=== PATIENT | male | born 1945 | race Caucasian/White ===

== ENCOUNTER 2016-07-29 21:21 | Observation (INO) | payer OTHER ==
[2016-07-29 21:37] VITALS: BMI 35.4
[2016-07-29 21:51] LABS: BASOPHILS # (AUTO) 0.1 X10^3/uL (0.0-0.1); BASOPHILS % (AUTO) 0.9 % (0.2-1.0); EOSINOPHILS # (AUTO) 0.2 x10^3/uL (0.0-0.2); EOSINOPHILS % (AUTO) 2.6 % (0.9-2.9); HEMATOCRIT 37.8 % (42.0-54.0); LYMPHOCYTES # (AUTO) 1.8 X10^3/uL (1.3-2.9); LYMPHOCYTES % (AUTO) 23.7 % (21.0-51.0); MEAN CORPUSCULAR HEMOGLOBIN 32.7 pg (27.0-34.0); MEAN CORPUSCULAR HGB CONC 34.4 g/dL (33.0-35.0); MEAN CORPUSCULAR VOLUME 95.1 fL (80.0-100.0); MEAN PLATELET VOLUME 10.3 fL (7.4-11.0); MONOCYTES # (AUTO) 0.6 x10^3/uL (0.3-0.8); MONOCYTES % (AUTO) 7.5 % (0.0-13.0); NEUTROPHILS % (AUTO) 65.3 % (42.0-75.0); PLATELET COUNT 180 X10^3/uL (150.0-450.0); RED BLOOD COUNT 3.97 X10^6/uL (4.7-6.0); RED CELL DISTRIBUTION WIDTH 14.3 % (11.6-16.5); WHITE BLOOD COUNT 7.6 X10^3/uL (3.6-10.0)
--- NOTE | 2016-07-29 21:58 | DR.GENAD ---
HPI - PCP Primary Care PhysicianLaura casillas - Complaint/Symptoms Chief Complaint:: chest pain for 30 minutes pt states" it hurts all the way too my back on the lt side and i feel sob" - Source History Provided: Patient - Mode of Arrival Mode of Arrival: Ambulatory - Timing Onset of Chief Complaint: 07/29/16 PMH - PMH Past Medical History: Yes Past Medical History: Angina, Arthritis, Coronary Artery Disease, Diabetes, Dyslipidemia, GERD, Hypertension, [place] Past Surgical History: Yes Surgical History: Angioplasty/Stents, Joint Replacement, Tonsillectomy - Family History History of Family Medical Conditions: Yes Family Medical History: Diabetes Mellitus, [place], Sudden Cardiac , Hypertension - Social History Does patient currently use any type of tobacco product: No Have you used tobacco products in the last 12 months: No Type of Tobacco Use: None Does any household member use tobacco: No Alcohol Use: None Do you use any recreational Drugs:: No Lives With: Family Lives Where: Home - infectious screening In the last 2 months have you had wt loss of >10#?: NO Have you had fever, night sweats or hemotysis?: No Have you traveled outside the country in the last 6 months?: No Isolation: Standard PE - Vital Signs Vitals: Temperature 98.6 F Pulse Rate [Apical] 54 Pulse Rate 58 Respiratory Rate 16 Blood Pressure [Left Arm] 134/70 Blood Pressure [Right Arm] 121/59 Blood Pressure 167/69 O2 Sat by Pulse Oximetry 98 Course - Consultation Called: 23:29 (Admit r/o [place]) ROR - Labs Reviewed Result Diagrams: 07/29/16 22:20 07/29/16 22:20 Laboratory: WBC 7.6 X10^3/uL (3.6-10.0) 07/29/16 22:20 RBC 3.97 X10^6/uL (4.7-6.0) L 07/29/16 22:20 Hgb 13.0 g/dL (13.5-18.0) L 07/29/16 22:20 Hct 37.8 % (42.0-54.0) L 07/29/16 22:20 MCV 95.1 fL (80.0-100.0) 07/29/16 22:20 MCH 32.7 pg (27.0-34.0) 07/29/16 22:20 MCHC 34.4 g/dL (33.0-35.0) 07/29/16 22:20 RDW 14.3 % (11.6-16.5) 07/29/16 22:20 Plt Count 180 X10^3/uL (150.0-450.0) 07/29/16 22:20 MPV 10.3 fL (7.4-11.0) 07/29/16 22:20 Neut % 65.3 % (42.0-75.0) 07/29/16 22:20 Lymph % 23.7 % (21.0-51.0) 07/29/16 22:20 Mccreary % 7.5 % (0.0-13.0) 07/29/16 22:20 Eos % 2.6 % (0.9-2.9) 07/29/16 22:20 Baso % 0.9 % (0.2-1.0) 07/29/16 22:20 Neut # 5.0 x10^3/uL (2.2-4.8) H 07/29/16 22:20 Lymph # 1.8 X10^3/uL (1.3-2.9) 07/29/16 22:20 Mccreary # 0.6 x10^3/uL (0.3-0.8) 07/29/16 22:20 Eos # 0.2 x10^3/uL (0.0-0.2) 07/29/16 22:20 Baso # 0.1 X10^3/uL (0.0-0.1) 07/29/16 22:20 Absolute Nucleated RBC 0.0 /100WBC 07/29/16 22:20 INR Target Range - 07/29/16 22:20 INR 1.14 (0.8-1.3) 07/29/16 22:20 PTT 29.0 SECONDS (22.9-36.5) 07/29/16 22:20 PTT Comment - 07/29/16 22:20 Sodium 142 mmol/L (136-145) 07/29/16 22:20 Potassium 3.7 mmol/L (3.5-5.1) 07/29/16 22:20 Chloride 107 mmol/L (98-107) 07/29/16 22:20 Carbon Dioxide 21.0 mmol/L (21-32) 07/29/16 22:20 BUN 19 mg/dL (7-18) H 07/29/16 22:20 Creatinine 1.52 mg/dL (0.70-1.30) H 07/29/16 22:20 Est GFR (MDRD) Af Amer 59 (>60) 07/29/16 22:20 Est GFR (MDRD) Non-Af 48 (>60) L 07/29/16 22:20 Glucose 191 mg/dL (65-99) H 07/29/16 22:20 Calcium 8.6 mg/dL (8.5-10.1) 07/29/16 22:20 Corrected Calcium TNP 07/29/16 22:20 Phosphorus 3.4 mg/dL (2.6-4.7) 07/29/16 22:20 Magnesium 1.6 mg/dL (1.7-2.9) L 07/29/16 22:20 Total Bilirubin 0.50 mg/dL (0.2-1.0) 07/29/16 22:20 AST 26 Units/L (15-37) 07/29/16 22:20 ALT 53 Units/L (12-78) 07/29/16 22:20 Alkaline Phosphatase 70 Units/L (46-116) 07/29/16 22:20 Creatine Kinase 137 Units/L (39-308) 07/29/16 22:20 CK-MB (CK-2) 1.2 ng/mL (0-4.0) 07/29/16 22:20 CK/CKMB % Calc 0.9 % (<4) 07/29/16 22:20 Troponin I < 0.02 ng/mL (0-1.5) 07/29/16 22:20 Total Protein 7.5 g/dL (6.4-8.2) 07/29/16 22:20 Albumin 3.6 g/dL (3.4-5.0) 07/29/16 22:20 Globulin 3.9 g/dL (2.5-4.5) 07/29/16 22:20 Albumin/Globulin Ratio 0.9 Ratio (1.1-2.1) L 07/29/16 22:20 - XRAY XRAY Interpreted by: Radiologist (Cardiomegaly and mild COPD w/o new acute abnormality or change from the prior otherwise) - Diagnosis Discharge Problem: Chest pain Qualifiers: Chest pain type: chest pain on breathing Qualified Code(s): R07.1 - Chest pain on breathing - Discharge Plan Condition: Stable - Follow ups/Referrals Follow ups/Referrals: Cachorro Casillas [Primary Care Provider] - 3 days - Instructions
[2016-07-29] MEDS ORDERED: NITROSTAT SL PRN (21:59)
[2016-07-29] MEDS ORDERED: NS 1000 ML 1,000 ML IV SCH (22:00)
[2016-07-29] MEDS ORDERED: ZOFRAN INJ 4 MG VIAL ONE (22:03)
[2016-07-29] MEDS ORDERED: ZOFRAN INJ 4 MG VIAL IVP ONE (22:03)
--- NOTE | 2016-07-29 22:09 | RAD ---
Graph chest AP portable Indication: Chest pain and dyspnea. Comparison: February 20, 2015. Findings: There is no pneumothorax or effusion. There is no consolidation. Heart size is prominent. Right shoulder hardware intact. Impression: Cardiomegaly and mild COPD without new acute abnormality or change from the prior otherw ise. Reported By:
[2016-07-29] MEDS: ASPIRIN PO SCH (22:11)
[2016-07-29 22:46] LABS: MAGNESIUM 1.6 mg/dL (1.7-2.9); PHOSPHORUS 3.4 mg/dL (2.6-4.7)
[2016-07-29 22:53] LABS: BLOOD UREA NITROGEN 19 mg/dL (7-18); CALCIUM 8.6 mg/dL (8.5-10.1); CHLORIDE 107 mmol/L (98-107); COR NA(FOR HYPERGLY) 144 mmol/L (136-145); CREATININE 1.52 mg/dL (0.70-1.30); GLUCOSE 191 mg/dL (65-99); SODIUM 142 mmol/L (136-145); TROPONIN I < 0.02 ng/mL (0-1.5); eGFR BLACK RACES 59 (>60); eGFR NON BLACK RACES 48 (>60)
[2016-07-29 23:09] LABS: ALANINE AMINOTRANSFERASE 53 Units/L (12-78); ALBUMIN 3.6 g/dL (3.4-5.0); ALKALINE PHOSPHATASE 70 Units/L (46-116); ASPARTATE AMINO TRANSFERASE 26 Units/L (15-37); CKMB % 0.9 % (<4); CREATINE KINASE 137 Units/L (39-308); CREATINE KINASE MB 1.2 ng/mL (0-4.0); TOTAL PROTEIN 7.5 g/dL (6.4-8.2)
[2016-07-29] MEDS ORDERED: ZOFRAN INJ 4 MG VIAL IVP PRN (23:38)
[2016-07-29] MEDS ORDERED: MORPHINE SULFATE INJ 4 MG IVP PRN (23:38)
[2016-07-30] MEDS ORDERED: NS + KCL 20 MEQ/L 1,000 ML IV ONE (05:47)
[2016-07-30] MEDS: NS 1000 ML 1,000 ML with POTASSIUM CHLORIDE INJ 20 MEQ VIAL 20 MEQ IV SCH ×8 (05:53→22:37)
[2016-07-30 06:07] LABS: CKMB % 1.1 % (<4); CREATINE KINASE 107 Units/L (39-308); CREATINE KINASE MB 1.2 ng/mL (0-4.0); TROPONIN I < 0.02 ng/mL (0-1.5)
[2016-07-30 08:03] LABS: BASOPHILS % (AUTO) 0.7 % (0.2-1.0); EOSINOPHILS # (AUTO) 0.3 x10^3/uL (0.0-0.2); EOSINOPHILS % (AUTO) 5.1 % (0.9-2.9); HEMATOCRIT 35.2 % (42.0-54.0); HEMOGLOBIN 11.8 g/dL (13.5-18.0); LYMPHOCYTES # (AUTO) 1.6 X10^3/uL (1.3-2.9); LYMPHOCYTES % (AUTO) 30.1 % (21.0-51.0); MEAN CORPUSCULAR HEMOGLOBIN 32.4 pg (27.0-34.0); MEAN CORPUSCULAR HGB CONC 33.6 g/dL (33.0-35.0); MEAN CORPUSCULAR VOLUME 96.5 fL (80.0-100.0); MEAN PLATELET VOLUME 10.3 fL (7.4-11.0); MONOCYTES # (AUTO) 0.5 x10^3/uL (0.3-0.8); MONOCYTES % (AUTO) 8.8 % (0.0-13.0); NEUTROPHILS % (AUTO) 55.3 % (42.0-75.0); PLATELET COUNT 130 X10^3/uL (150.0-450.0); RED BLOOD COUNT 3.64 X10^6/uL (4.7-6.0); RED CELL DISTRIBUTION WIDTH 14.3 % (11.6-16.5); WHITE BLOOD COUNT 5.4 X10^3/uL (3.6-10.0)
[2016-07-30 08:10] LABS: ALANINE AMINOTRANSFERASE 47 Units/L (12-78); ALBUMIN 3.2 g/dL (3.4-5.0); ALKALINE PHOSPHATASE 63 Units/L (46-116); ASPARTATE AMINO TRANSFERASE 29 Units/L (15-37); BLOOD UREA NITROGEN 20 mg/dL (7-18); CALCIUM 8.3 mg/dL (8.5-10.1); CARBON DIOXIDE 19.7 mmol/L (21-32); CHLORIDE 110 mmol/L (98-107); COR CA(FOR HYPOALB) 8.9 mg/dL (8.5-10.1); COR NA(FOR HYPERGLY) 144 mmol/L (136-145); CREATININE 1.25 mg/dL (0.70-1.30); GLUCOSE 119 mg/dL (65-99); SODIUM 144 mmol/L (136-145); TOTAL PROTEIN 6.7 g/dL (6.4-8.2); eGFR BLACK RACES > 60 (>60); eGFR NON BLACK RACES > 60 (>60)
[2016-07-30] MEDS ORDERED: [UNRECOGNIZED DRUG - OTHER] PO SCH (09:00)
[2016-07-30] MEDS ORDERED: [UNRECOGNIZED DRUG - OTHER] PO SCH (09:00)
[2016-07-30] MEDS ORDERED: GLUCOPHAGE ONE ×2 (09:20→20:16)
[2016-07-30] MEDS: PRILOSEC PO SCH (09:25)
[2016-07-30] MEDS: NEURONTIN CAP 300 MG PO SCH (09:26)
[2016-07-30] MEDS: NORVASC TAB 10 MG PO SCH (09:26)
[2016-07-30] MEDS: ZESTRIL TAB 10 MG PO SCH ×2 (09:26→20:20)
[2016-07-30] MEDS: GLUCOPHAGE PO SCH ×2 (09:26→20:20)
[2016-07-30] MEDS: ASPIRIN PO SCH (09:27)
[2016-07-30] MEDS: MAGNESIUM SULFATE 1 GM/100 mL PREMIX 1 GM/100 ML BAG IV SCH ×2 (09:58→09:59)
[2016-07-30 10:16] LABS: CKMB % 1.3 % (<4); CREATINE KINASE 100 Units/L (39-308); CREATINE KINASE MB 1.3 ng/mL (0-4.0); TROPONIN I < 0.02 ng/mL (0-1.5)
[2016-07-30] MEDS: PLAVIX PO SCH (13:45)
[2016-07-30] MEDS: [UNRECOGNIZED DRUG - OTHER] PO SCH (13:45)
--- NOTE | 2016-07-30 15:00 | DR.H&P ---
H&P - History & Physical for Day of: H&P Date: 07/29/16 - Chief Complaint Chief Complaint: CHEST PAIN - Allergies Allergies/Adverse Reactions: Allergies Allergy/AdvReac Type Severity Reaction Status Date / Time No Known Drug Allergy Allergy Verified 06/08/13 20:48 - History of Present Illness History of Present Illness: THIS IS A 70 YEAR OLD MALE, WHO IS A PATIENT OF OURS. HE PRESENTS TO THE EMERGENCY ROOM WITH COMPLAINTS OF CHEST PAIN. PATIENT REPORTS LEFT-SIDED CHEST PAIN, BACK PAIN, AND SHORTNESS OF BREATH. HE REPORTS PLAVIX HAS BEEN HELD FOR A WEEK FOR SOME DENTAL WORK THAT WAS TO BE DONE TOMORROW. TWO DAYS AGO, PATIENT REPORTED THAT HE WAS DIZZY AND FELT WEAK. HE STATED TODAY, HE FELT GOOD AND PLAYED A ROUND OF GOLF WITH NO COMPLAINTS. LATER THIS EVENING, PATIENT BEGAN WITH CHEST PAIN AND SHORTNESS OF BREATH. HE REPORTS CHEST PAIN IS VERY SIMILAR TO PAST [place]. 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 LABS, EKG OBTAINED. CBC WNL EXCEPT: H/H 13.0/37.8. CMP WNL EXCEPT: CHL 110, CARBON DIOXIDE 19.7, BUN 20, GLUCOSE 119, CALCIUM 8.3, ALBUMIN 3.2. CHEST XRAY REPORTS CARDIOMEGALY AND MILD COPD WITHOUT NEW ACUTE ABNORMALITY. EKG: SINUS RHYTHM, RATE 58. CARDIAC ENZYMES WNL. WE WILL ADMIT PATIENT FOR FURTHER TREATMENT AND EVALUATION. - Past Medical History Past Medical History: Angina, Arthritis, Coronary Artery Disease, Diabetes, Dyslipidemia, GERD, Hypertension, [place] Additional Medical History: Previous Blood Transfusion - Past Surgical History Surgical History: Angioplasty/Stents, Ortho Surgery Additional Surgical History: Two Heart Catheterization's, Right Total Knee, Right Shoulder Replacement, Fatty tissue removed from left side of neck - Family History Family Medical History: Cancer, [place] - Social History Does patient currently use any type of tobacco product: No Have you used tobacco products in the last 12 months: No Type of Tobacco Use: None Does any household member use tobacco: No Alcohol Use: None Drug Use: None - Medications Home Medications: Gabapentin [Gabapentin] 1 cap PO HS 07/29/16 [History Confirmed 07/30/16] Metformin HCl [Metformin HCl] 1 tab PO BID 07/29/16 [History Confirmed 07/30/16] Omeprazole [Omeprazole] 1 tab PO DAILY 07/29/16 [History Confirmed 07/30/16] Clopidogrel Bisulfate [Clopidogrel] 1 tab PO DAILY 07/30/16 [History Confirmed 07/30/16] Tamsulosin HCl [Tamsulosin HCl] 1 cap PO HS 07/30/16 [History Confirmed 07/30/16 ] - Review of Systems Constitutional: Weakness, Malaise Eyes: No Symptoms Reported. denies: Pain, Vision Change, Eyelid Inflammation ENT: No Symptoms Reported. denies: Ear Pain, Ear Discharge, Nose Pain, Nose Discharge, Nose Congestion, Mouth Pain, Mouth Swelling, Throat Pain, Throat Swelling Respiratory: Shortness of Breath, SOB with Excertion. denies: Cough, Pleuritic Pain, Wheezing Cardiovascular: Chest Pain, Light Headedness. denies: Palpitations, Orthopnea, Paroxysmal Noc. Dyspnea, Edema Gastrointestinal: No Symptoms Reported. denies: Nausea, Abdominal Pain, Diarrhea, Constipation, Melena, Hematochezia Genitourinary: No Symptoms Reported. denies: Dysuria, Frequency, Incontinence, Hematuria, Retention Musculoskeletal: Back Pain Skin: No Symptoms Reported. denies: Rash, Lesions, Jaundice, Bruising, Wound, Ecchymosis Neurological: No Symptoms Reported. denies: Weakness, Numbness, Incoordination , Change in Speech, Confusion, Seizures - Physical Exam Vital Signs: Temperature 97.9 F Pulse Rate [Apical] 94 Respiratory Rate 20 Blood Pressure [Left Arm] 131/68 O2 Sat by Pulse Oximetry 98 Oriented: Normal, Time, Person, Place Eyes: Normal. negative: Blurred Vision, Diplopia, Discharge, Redness, Photophobia Ear: Normal. negative: Swelling, Ecchymosis, Hemotypanum, Abrasion Nose: Normal. negative: Injected, Discharge, Blood Throat: Normal. negative: Tonsillar Hypertrophy, Red, Exudate Respiratory: Clear Throughout Cardiovascular: Normal. negative: Murmur, Edema : Normal. negative: Dysuria, Hematuria, Frequency, Discharge, Testicular Pain Auscultation: Bowel Sounds: Normal. negative: Bruit Palpation: Normal. negative: Spleen Enlarged, Mass Pulsatile Tenderness: Normal. negative: Rebound, Guarding, Rigidity Skin: Normal. negative: Diaphoresis, Wound, Bruising, Ecchymosis Musculoskeletal: Normal Psychiatric: Normal Mood Description: Calm, Appropriate Affect: Normal Speech Pattern: Clear, Appropriate - Assessment/Plan (1) Chest pain, rule out acute myocardial infarction Status: Acute Plan: ADMIT PATIENT, OBTAIN SERIAL CARDIAC ENZYMES AND EKG'S, MORPHINE NEEDED , SUPPLEMENTAL OXYGEN, MONITOR ON TELEMETRY. (2) Shortness of breath Status: Acute Plan: ABOVE. 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
--- NOTE | 2016-07-30 15:18 | PCM.PROG ---
Progress Note - Progress Note for Day of Date: 07/30/16 - Subjective Subjective: PATIENT CONTINUES TO REPORT LEFT-SIDED CHEST PAIN ALONG WITH INTERMITTENT SHORTNESS OF BREATH. HEART RATE IS REGULAR. AT BEDSIDE. WE HAVE DISCUSSED HOLDING PLAVIX FOR DENTAL PROCEDURE AND ARE PLANNING TO RESTART MEDICATION TODAY. PATIENT VOICES UNDERSTANDING. PATIENT HAS A HISTORY OF NC WITH CARDIAC STENT PLACEMENT. WE ARE ALSO PLANNING FOR PATIENT TO FOLLOW UP WITH [facility] UPON DISCHARGE. CARDIAC ENZYMES AND EKG'S WNL. PATIENT REPORTS EYE PRESSURE ALONG WITH DIZZINESS THIS MORNING. CBC WNL EXCEPT: H/H 11.8/35.2, PLT COUNT 130. CMP WNL EXCEPT: CHL 110, CARBON DIOXIDE 19.7, BUN 20 , GLUCOSE 119, CALCIUM 8.3, ALBUMIN 3.2. MAGNESIUM 1.6. WE WILL OBTAIN AN ECHO AND CAROTID DOPPLER TODAY. WE WILL START PLAVIX, PEPCID, PROTONIX, MAG- RDIERS, AND OBTAIN SERIAL EKG'S AND CARDIAC ENZYMES. WE WILL CONTINUE TO MONITOR ON TELEMETRY AND FOLLOW UP IN AM WITH LABS. - Past Medical Family Social History Past Med/Fam/Surg Hx: No changes since H&P Allergies: Allergies No Known Drug Allergy Allergy (Verified 06/08/13 20:48) - Review of Systems ROS: No change since H&P - Vital Signs and I&O's Vital Signs: Temperature 97.9 F Pulse Rate [Apical] 94 Respiratory Rate 20 Blood Pressure [Left Arm] 131/68 O2 Sat by Pulse Oximetry 98 Intake and Output: Intake & Output 07/28/16 07/29/16 07/30/16 07/31/16 11:59 11:59 11:59 11:59 Intake Total 925 Output Total 0 Balance 925 - Physical Exam Oriented: Normal, Time, Person, Place Eyes: Normal. negative: Blurred Vision, Diplopia, Discharge, Redness, Photophobia Ear: Normal. negative: Swelling, Ecchymosis, Hemotypanum, Abrasion Nose: Normal. negative: Injected, Discharge, Blood Throat: Normal. negative: Tonsillar Hypertrophy, Red, Exudate Respiratory: Normal Cardiovascular: Normal. negative: Murmur, Edema : Normal. negative: Dysuria, Hematuria, Frequency, Discharge, Testicular Pain Auscultation: Bowel Sounds: Normal. negative: Bruit Palpation: Normal. negative: Spleen Enlarged, Liver Enlarged, Mass Pulsatile Tenderness: Normal. negative: Rebound, Guarding, Rigidity Skin: Normal. negative: Diaphoresis, Wound, Bruising, Ecchymosis Musculoskeletal: Normal Psychiatric: Normal Mood Description: Calm, Appropriate Affect: Normal Speech Pattern: Clear, Appropriate - Laboratory and Diagnostics Result Diagrams: 07/30/16 05:05 07/30/16 05:05 Labs: Laboratory WBC 5.4 X10^3/uL (3.6-10.0) 07/30/16 05:05 RBC 3.64 X10^6/uL (4.7-6.0) L 07/30/16 05:05 Hgb 11.8 g/dL (13.5-18.0) L 07/30/16 05:05 Hct 35.2 % (42.0-54.0) L 07/30/16 05:05 MCV 96.5 fL (80.0-100.0) 07/30/16 05:05 MCH 32.4 pg (27.0-34.0) 07/30/16 05:05 MCHC 33.6 g/dL (33.0-35.0) 07/30/16 05:05 RDW 14.3 % (11.6-16.5) 07/30/16 05:05 Plt Count 130 X10^3/uL (150.0-450.0) L 07/30/16 05:05 MPV 10.3 fL (7.4-11.0) 07/30/16 05:05 Neut % 55.3 % (42.0-75.0) 07/30/16 05:05 Lymph % 30.1 % (21.0-51.0) 07/30/16 05:05 Bates % 8.8 % (0.0-13.0) 07/30/16 05:05 Eos % 5.1 % (0.9-2.9) H 07/30/16 05:05 Baso % 0.7 % (0.2-1.0) 07/30/16 05:05 Neut # 3.0 x10^3/uL (2.2-4.8) 07/30/16 05:05 Lymph # 1.6 X10^3/uL (1.3-2.9) 07/30/16 05:05 Bates # 0.5 x10^3/uL (0.3-0.8) 07/30/16 05:05 Eos # 0.3 x10^3/uL (0.0-0.2) H 07/30/16 05:05 Baso # 0.0 X10^3/uL (0.0-0.1) 07/30/16 05:05 Absolute Nucleated RBC 0.1 /100WBC 07/30/16 05:05 INR Target Range - 07/29/16 22:20 INR 1.14 (0.8-1.3) 07/29/16 22:20 PTT 29.0 SECONDS (22.9-36.5) 07/29/16 22:20 PTT Comment - 07/29/16 22:20 Sodium 144 mmol/L (136-145) 07/30/16 05:05 Corrected Sodium 144 mmol/L (136-145) 07/30/16 05:05 Potassium 4.1 mmol/L (3.5-5.1) 07/30/16 05:05 Chloride 110 mmol/L (98-107) H 07/30/16 05:05 Carbon Dioxide 19.7 mmol/L (21-32) L 07/30/16 05:05 BUN 20 mg/dL (7-18) H 07/30/16 05:05 Creatinine 1.25 mg/dL (0.70-1.30) 07/30/16 05:05 Est GFR (MDRD) Af Amer > 60 (>60) 07/30/16 05:05 Est GFR (MDRD) Non-Af > 60 (>60) 07/30/16 05:05 Glucose 119 mg/dL (65-99) H 07/30/16 05:05 Calcium 8.3 mg/dL (8.5-10.1) L 07/30/16 05:05 Corrected Calcium 8.9 mg/dL (8.5-10.1) 07/30/16 05:05 Phosphorus 3.4 mg/dL (2.6-4.7) 07/29/16 22:20 Magnesium 1.6 mg/dL (1.7-2.9) L 07/29/16 22:20 Total Bilirubin 0.40 mg/dL (0.2-1.0) 07/30/16 05:05 AST 29 Units/L (15-37) 07/30/16 05:05 ALT 47 Units/L (12-78) 07/30/16 05:05 Alkaline Phosphatase 63 Units/L (46-116) 07/30/16 05:05 Creatine Kinase 100 Units/L (39-308) 07/30/16 09:38 CK-MB (CK-2) 1.3 ng/mL (0-4.0) 07/30/16 09:38 CK/CKMB % Calc 1.3 % (<4) 07/30/16 09:38 Troponin I < 0.02 ng/mL (0-1.5) 07/30/16 09:38 Total Protein 6.7 g/dL (6.4-8.2) 07/30/16 05:05 Albumin 3.2 g/dL (3.4-5.0) L 07/30/16 05:05 Globulin 3.5 g/dL (2.5-4.5) 07/30/16 05:05 Albumin/Globulin Ratio 0.9 Ratio (1.1-2.1) L 07/30/16 05:05 - Plan (1) Chest pain, rule out acute myocardial infarction Status: Acute Plan: OBTAIN ECHO AND CAROTID DOPPLER, OBTAIN SERIAL CARDIAC ENZYMES AND EKG'S, START PLAVIX, CONTINUE ASPIRIN, LIPITOR, MORPHINE NEEDED, SUPPLEMENTAL OXYGEN , MONITOR ON TELEMETRY, FLP IN AM. (2) Shortness of breath Status: Acute Plan: ABOVE. 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
[2016-07-30 17:14] LABS: CREATINE KINASE 99 Units/L (39-308); CREATINE KINASE MB < 1.0 ng/mL (0-4.0); TROPONIN I < 0.02 ng/mL (0-1.5)
[2016-07-30] MEDS ORDERED: SNACK - Diabetic Appropriate PO SCH (20:00)
[2016-07-30] MEDS ORDERED: ANTIVERT TAB 25 MG PO SCH (21:00)
[2016-07-30] MEDS ORDERED: LIPITOR TAB 40 MG PO SCH (21:00)
[2016-07-30] MEDS ORDERED: PATIENT'S HOME MEDICATION RESPIRATORY (Atorvastatin Calcium [Lipitor] 80 MG) PO SCH (21:00)
[2016-07-30 23:43] LABS: CKMB % 1.2 % (<4); CREATINE KINASE 83 Units/L (39-308); CREATINE KINASE MB < 1.0 ng/mL (0-4.0); TROPONIN I 0.03 ng/mL (0-1.5)
[2016-07-31] MEDS: NS 1000 ML 1,000 ML with POTASSIUM CHLORIDE INJ 20 MEQ VIAL 20 MEQ IV SCH ×2 (02:40)
[2016-07-31 06:03] LABS: ALANINE AMINOTRANSFERASE 46 Units/L (12-78); ALKALINE PHOSPHATASE 61 Units/L (46-116); ASPARTATE AMINO TRANSFERASE 21 Units/L (15-37); BLOOD UREA NITROGEN 15 mg/dL (7-18); CALCIUM 8.2 mg/dL (8.5-10.1); CARBON DIOXIDE 22.2 mmol/L (21-32); CHLORIDE 111 mmol/L (98-107); CHOL/HDL RATIO 3.7 (0.0-5.0); CHOLESTEROL 86 mg/dL (0-200); COR NA(FOR HYPERGLY) 145 mmol/L (136-145); CREATININE 1.11 mg/dL (0.70-1.30); GLUCOSE 139 mg/dL (65-99); HDL CHOLESTEROL 23 mg/dL (40-60); MAGNESIUM 1.8 mg/dL (1.7-2.9); SODIUM 144 mmol/L (136-145); TOTAL PROTEIN 6.6 g/dL (6.4-8.2); TRIGLYCERIDES 80 mg/dL (0-150); eGFR BLACK RACES > 60 (>60); eGFR NON BLACK RACES > 60 (>60)
[2016-07-31 06:18] LABS: HEMOGLOBIN A1C 7.5 % (4.5-6.2)
--- NOTE | 2016-07-31 06:58 | VAS ---
HISTORY: Chest pain Study: Carotid sonogram Comparison: None Technique: Multiple del rosario scale and color flow Doppler images of the right and left carotid arterial system were obtained. The vertebral arterial system was evaluated as well. Findings: Plaque is present at both bifurcations. Normal color flow Doppler is seen throughout the right and l eft carotid arterial system. No hemodynamically significant stenosis is seen based on velocity crit eria. The right and left vertebral arteries demonstrate antegrade flow. IMPRESSION: 1. No hemodynamically significant stenosis. Reported By:
[2016-07-31 07:11] LABS: BASOPHILS % (AUTO) 0.6 % (0.2-1.0); EOSINOPHILS # (AUTO) 0.3 x10^3/uL (0.0-0.2); EOSINOPHILS % (AUTO) 5.2 % (0.9-2.9); HEMATOCRIT 36.9 % (42.0-54.0); HEMOGLOBIN 12.3 g/dL (13.5-18.0); LYMPHOCYTES # (AUTO) 1.1 X10^3/uL (1.3-2.9); LYMPHOCYTES % (AUTO) 19.2 % (21.0-51.0); MEAN CORPUSCULAR HEMOGLOBIN 31.9 pg (27.0-34.0); MEAN CORPUSCULAR HGB CONC 33.3 g/dL (33.0-35.0); MEAN PLATELET VOLUME 10.8 fL (7.4-11.0); MONOCYTES # (AUTO) 0.4 x10^3/uL (0.3-0.8); MONOCYTES % (AUTO) 7.7 % (0.0-13.0); NEUTROPHILS # (AUTO) 3.9 x10^3/uL (2.2-4.8); NEUTROPHILS % (AUTO) 67.3 % (42.0-75.0); PLATELET COUNT 137 X10^3/uL (150.0-450.0); RED BLOOD COUNT 3.84 X10^6/uL (4.7-6.0); RED CELL DISTRIBUTION WIDTH 14.2 % (11.6-16.5); WHITE BLOOD COUNT 5.8 X10^3/uL (3.6-10.0)
[2016-07-31 08:21] VITALS: BP 144/76
[2016-07-31] MEDS ORDERED: GLUCOPHAGE ONE (08:35)
[2016-07-31] MEDS: PRILOSEC PO SCH (08:35)
[2016-07-31 08:37] LABS: CKMB % 1.3 % (<4); CREATINE KINASE 79 Units/L (39-308); CREATINE KINASE MB < 1.0 ng/mL (0-4.0); TROPONIN I < 0.02 ng/mL (0-1.5)
[2016-07-31] MEDS: ASPIRIN PO SCH (08:50)
[2016-07-31] MEDS: NORVASC TAB 10 MG PO SCH (08:50)
[2016-07-31] MEDS: PLAVIX PO SCH (08:53)
[2016-07-31] MEDS: ZESTRIL TAB 10 MG PO SCH (08:53)
[2016-07-31] MEDS: NEURONTIN CAP 300 MG PO SCH (08:53)
[2016-07-31] MEDS: GLUCOPHAGE PO SCH (08:54)
[2016-07-31] MEDS: [UNRECOGNIZED DRUG - OTHER] PO SCH (08:54)
== END 2016-07-31 11:19 | disposition home or self-care (01) | DRG 313 ==
LOC: ER 21:21 → OBS 23:33
PROVIDERS: ADMIT Internal Medicine; ATTEND Internal Medicine
DX: R07.89 Other chest pain (principal); I25.10 Atherosclerotic heart disease of native coronary artery without angina pectoris; E78.2 Mixed hyperlipidemia; K21.9 Gastro-esophageal reflux disease without esophagitis; M13.89 Other specified arthritis, multiple sites; I10 Essential (primary) hypertension; R07.1 Chest pain on breathing; M54.5 Low back pain; R06.02 Shortness of breath; I51.7 Cardiomegaly; J44.9 Chronic obstructive pulmonary disease, unspecified; E11.65 Type 2 diabetes mellitus with hyperglycemia; I25.2 Old myocardial infarction; D64.89 Other specified anemias; Z79.01 Long term (current) use of anticoagulants
CPT/HCPCS: 36415; 71010; 80053; 80061; 82550; 82553; 83036; 83735; 84100; 84484; 85025; 85610; 85730; 86677; 93005; 93041; 93306; 93880; 94760; 96365; 96367; 96374; 99284; A4222; G0378; J2405; J3480

== ENCOUNTER 2019-10-22 14:54 | Inpatient (IN) ==
--- NOTE | 2019-10-22 15:33 | DR.EXTPAIN ---
HPI Time seen Time Seen by Provider: 10/22/19 15:31 PCP Primary Care Physician: vinny HPI Comment HPI Comment: PATIENT IS 74YR OLD MALE IN ER WITH HIS BOTH COVID 19 POSITIVE NOW RUNNING FEVER, AND HAVING INCREASING SOB AND GENERALIZED WEAKNESS. HE IS DIZZY. COUGHING, NON PRODUCTIVE. HISTORY CAD, DM AND HYPERTENSION. HIS IS COVID 19 POSITIVE AND SHE IS SICK IN ER WITH ALSO. HAVING GENERALIZED MUSCLE ACHES, 8/10. MOVEMENT WORSENEN PAIN, AND LYING STILL HELP PAIN. Complaint/Symptoms Chief Complaint Doctor Comments: PATIENT PRESENTS TO ER WITH GENERALIZED WEAKNESS, DIZZINESS, INCREASING SOB AND FEVER FOR A WEEK. HE IS COVID 19 POSITIVE. Chief Complaint:: pt stated he has been weak,dizzy, and short of breath for about a weak. pt has been covid positive for a weak. COVID-19 Coronavirus risk:travel/contact w/high risk person: Yes Has patient experienced Coronavirus symptoms: Yes Coronavirus symptoms experienced: Fever and Shortness of Breath Nurses notes reviewed Nurses Notes Review: Yes Source History Provided: Patient Mode of arrival Mode of Arrival: Ambulatory Timing Onset of Chief Complaint: 10/16/19 Context History of: Arthritis Associated signs and symptoms Associated Signs and Symptoms: Weakness, Pain, Fever, Cough and Shortness of Breath PMH PMH Past Medical History: Yes Past Medical History: Angina, Arthritis, Coronary Artery Disease, Diabetes, Dys lipidemia, GERD, Hypertension and MS Past Surgical History: Yes Surgical History: Angioplasty/Stents and Ortho Surgery Family History History of Family Medical Conditions: Yes Family Medical History: Cancer and MS Social History Does patient currently use any type of tobacco product: No Have you used tobacco products in the last 12 months: No Type of Tobacco Use: None Does any household member use tobacco: No Alcohol Use: None Do you use any recreational Drugs:: No Lives With: Family Lives Where: Home Travel Risk Coronavirus risk:travel/contact w/high risk person: Yes Has patient experienced Coronavirus symptoms: Yes Coronavirus symptoms experienced: Fever and Shortness of Breath Infectious screening In the last 2 months have you had wt loss of >10#?: NO Have you had fever, night sweats or hemotysis?: No Have you traveled outside the country in the last 6 months?: No Isolation: Droplet ROS Review of Systems Constitutional: See HPI, Fever, Weakness and Fatigue Eyes: No Symptoms Reported and See HPI; negative Blurred Vision and Diplopia ENTM: See HPI and Nose Congestion; negative Ear Pain, Nose Discharge and Throat Pain Respiratoy: See HPI, Non-Productive Cough and Short of Breath; negative Wheezing Cardiovascular: No Symptoms Reported and See HPI; negative Chest Pain and Edema Gastrointestinal/Abdominal: No Symptoms Reported and See HPI; negative Abdominal Pain, Diarrhea, Nausea and Vomiting Genitourinary: No Symptoms Reported and See HPI; negative Dysuria, Frequency and Hematuria Neurological: See HPI, Weakness and Dizziness; negative Headache Musculoskeletal: See HPI and Muscle Pain Integumentary: No Symptoms Reported and See HPI; negative Change in Color, Rash and Juandice Hematologic/Lymphatic: No Symptoms Reported and See HPI; negative Easy Bruising and Swollen Glands Endocrine: No Symptoms Reported and See HPI; negative Increased Thirst and Increased Urine Psychiatric: No Symptoms Reported and See HPI All Other Systems: Reviewed and Negative PE Vital Signs Vitals: Temperature 99.0 F Pulse Rate 78 Respiratory Rate 18 Blood Pressure [Left Arm] 144/76 Blood Pressure [Right Arm] 121/59 Blood Pressure 127/68 O2 Sat by Pulse Oximetry 97 General Limitations: No Limitations General Appearance: Alert and In Distress (ON EXERTION, INCREASE SOB.) Head Head Exam: Normal Inspection, Atraumatic and Normocephalic Eyes Eye exam: Normal Appearance, PERRL and EOMI; negative Scleral Icterus and Conjunctival Injection ENT ENT Exam: Normal Exam Neck Neck Exam: Normal Inspection and Trachea Midline; negative Tenderness and Lymphadenopathy Chest Chest Inspection: Normal Inspection and Symmetric Chest Wall Rise; negative Tenderness Respiratory Respiratory Exam: Normal Lung Sounds Bilat and Respiratory Distress; negative Accessory Muscle Use and Chest Wall Tenderness Respiratory Exam: Bilateral: Rhonchi and Lower: Rhonchi Cardiovascular Cardiovascular Exam: Regular Rate, Normal Rhythm and Normal Heart Sounds; negative Systolic Murmur and Diastolic Murmur Abdominal Exam Abdominal Exam: Normal Inspection, Normal Bowel Sounds and Soft; negative Tenderness Extremities Extremities Exam: Normal Inspection and Normal Capillary Refill; negative Tenderness, Edema and Calf Tenderness Back Back Exam: Normal Inspection; negative (R) CVA Tenderness and (L) CVA Tenderness Neurological Neurological Exam: Alert, Oriented X3 and CN II-XII Intact; negative Motor Sen satinder Deficit Psychiatric Psychiatric Exam: Normal Affect and Normal Mood Skin Skin Exam: Warm, Dry, Intact and Normal Color MDM Differential Diagnosis Differential Diagnosis: Other (GENERALIZED WEAKNESS, FEVER, PNEUMONIA, UTI, COVID 19 POSITIVE, RESPIRATORY DISTRESS.) COURSE Treatment Treatment: SEE ORDERS. IV FLUIDS AND IV TORADOL. PAIN IMPROVING. ROCEPHIN 1GM IVPB IN ER. ROR Labs Reviewed Laboratory Results Reviewed?: Yes Result Diagrams: 10/23/19 04:36 10/23/19 04:36 Laboratory: 10/22/19 16:40 Urine,Clean Catch Urine Culture - Preliminary WBC 3.6 X10^3/uL (3.6-10.0) 10/22/19 16:07 RBC 3.97 X10^6/uL (4.7-6.0) L 10/22/19 16:07 Hgb 13.6 g/dL (13.5-18.0) 10/22/19 16:07 Hct 39.2 % (42.0-54.0) L 10/22/19 16:07 MCV 98.7 fL (80.0-100.0) 10/22/19 16:07 MCH 34.3 pg (27.0-34.0) H 10/22/19 16:07 MCHC 34.7 g/dL (33.0-35.0) 10/22/19 16:07 RDW 13.9 % (11.6-16.5) 10/22/19 16:07 Plt Count 153 X10^3/uL (150.0-450.0) 10/22/19 16:07 MPV 9.0 fL (7.4-11.0) 10/22/19 16:07 Neut % (Auto) 71.8 % (42.0-75.0) 10/22/19 16:07 Lymph % (Auto) 15.3 % (21.0-51.0) L 10/22/19 16:07 Sterling % (Auto) 11.9 % (0.0-13.0) 10/22/19 16:07 Eos % (Auto) 0.2 % (0.9-2.9) L 10/22/19 16:07 Baso % (Auto) 0.8 % (0.2-1.0) 10/22/19 16:07 Neut # (Auto) 2.6 x10^3/uL (2.2-4.8) 10/22/19 16:07 Lymph # (Auto) 0.5 X10^3/uL (1.3-2.9) L 10/22/19 16:07 [place] # (Auto) 0.4 x10^3/uL (0.3-0.8) 10/22/19 16:07 Eos # (Auto) 0.0 x10^3/uL (0.0-0.2) 10/22/19 16:07 Baso # (Auto) 0.0 X10^3/uL (0.0-0.1) 10/22/19 16:07 Absolute Nucleated RBC 0.1 /100WBC 10/22/19 16:07 Sample Site Lr 10/22/19 16:08 ABG pH 7.500 (7.35-7.45) H 10/22/19 16:08 ABG pCO2 27.0 mmHg (35.0-45.0) L 10/22/19 16:08 ABG pO2 79.0 mmHg (80.0-100.0) L 10/22/19 16:08 ABG HCO3 21.1 mmol/L (22-26) L 10/22/19 16:08 ABG O2 Saturation 97.0 % (90-100) 10/22/19 16:08 ABG Base Excess -1.0 mmol/L (-2.0-2.0) 10/22/19 16:08 Carlos Test Pos 10/22/19 16:08 A-a Gradient 87.0 mmHg 10/22/19 16:08 FiO2 28.0 10/22/19 16:08 Blood Gas Comments Pascual well cb 10/22/19 16:08 Sodium 138 mmol/L (136-145) 10/22/19 16:07 Corrected Sodium 138 mmol/L (136-145) 10/22/19 16:07 Potassium 3.6 mmol/L (3.5-5.1) 10/22/19 16:07 Chloride 100 mmol/L (98-107) 10/22/19 16:07 Carbon Dioxide 26.6 mmol/L (21-32) 10/22/19 16:07 BUN 14 mg/dL (7-18) 10/22/19 16:07 Creatinine 1.31 mg/dL (0.70-1.30) H 10/22/19 16:07 Est GFR (MDRD) Af Amer > 60 (>60) 10/22/19 16:07 Est GFR (MDRD) Non-Af 57 (>60) L 10/22/19 16:07 Glucose 113 mg/dL (65-99) H 10/22/19 16:07 Lactic Acid 2.8 mmol/L (0.4-2.0) H 10/22/19 16:07 Calcium 8.7 mg/dL (8.5-10.1) 10/22/19 16:07 Corrected Calcium 9.3 mg/dL (8.5-10.1) 10/22/19 16:07 Ferritin 895 ng/mL (26-388) H 10/22/19 16:07 Total Bilirubin 0.40 mg/dL (0.2-1.0) 10/22/19 16:07 AST 33 Units/L (15-37) 10/22/19 16:07 ALT 41 Units/L (12-78) 10/22/19 16:07 Alkaline Phosphatase 76 Units/L (46-116) 10/22/19 16:07 Lactate Dehydrogenase 189 Units/L (85-227) 10/22/19 16:07 Creatine Kinase 74 Units/L (39-308) 10/22/19 16:07 CK-MB (CK-2) < 1.0 ng/mL (0-4.0) 10/22/19 16:07 CK/CKMB % Calc 1.4 % (<4) 10/22/19 16:07 Troponin I < 0.02 ng/mL (0-1.5) 10/22/19 16:07 C-Reactive Protein 16.70 mg/L (0-3.0) H 10/22/19 16:07 B-Natriuretic Peptide 40.9 pg/mL (0-79) 10/22/19 16:07 Total Protein 8.1 g/dL (6.4-8.2) 10/22/19 16:07 Albumin 3.2 g/dL (3.4-5.0) L 10/22/19 16:07 Globulin 4.9 g/dL (2.5-4.5) H 10/22/19 16:07 Albumin/Globulin Ratio 0.7 Ratio (1.1-2.1) L 10/22/19 16:07 Specimen Type Clean catch urine 10/22/19 16:40 Urine Color Yellow (YELLOW) 10/22/19 16:40 Urine Appearance Slightly hazy (CLEAR) 10/22/19 16:40 Urine pH 5.0 (5.0 - 8.0) 10/22/19 16:40 Ur Specific [place] 1.020 (1.000-1.030) 10/22/19 16:40 Urine Protein 2+ (NEGATIVE) 10/22/19 16:40 Urine Glucose (UA) Negative (NEGATIVE) 10/22/19 16:40 Urine Ketones Negative (NEGATIVE) 10/22/19 16:40 Urine Occult Blood 1+ (NEGATIVE) 10/22/19 16:40 Urine Nitrite Negative (NEGATIVE) 10/22/19 16:40 Urine Bilirubin Negative (NEGATIVE) 10/22/19 16:40 Urine Urobilinogen Normal (NORMAL) 10/22/19 16:40 Ur Leukocyte Esterase 1+ (NEGATIVE) 10/22/19 16:40 Urine RBC 3-5 /HPF (0-3) A 10/22/19 16:40 Urine WBC 5-10 /HPF (0-5) A 10/22/19 16:40 Ur Squamous Epith Cells Few /HPF (NEGATIVE) 10/22/19 16:40 Urine Bacteria 1+ /HPF (NEGATIVE) 10/22/19 16:40 Urine Mucus Moderate /HPF (NEGATIVE) 10/22/19 16:40 Ur Culture Indicated? Yes/culture set up 10/22/19 16:40 Other Results Comments: DISCUSSED PATIENT WITH DR. EDDY. HE WILL ADMIT PATIENT. XRAY XRAY Interpreted by: Radiologist (REPORT NOTED AND DISCUSSED WITH PATIENT.) and Self (CHRONIC CHANGES. NO ACUTE INFILTRATE.) EKG Rate: 100 [place]: LAD Rhythm: ST Block: None Hypertrophy: None ST: Normal Opioid Opioid Risk Tool Age (Oscar box if 16-45): No History of Preadolescent Sexual Abuse: No Total: 0 Total Score Risk Category: Low Risk Copyright: Olayinka CASTILLO predicting aberrant behaviors Diagnosis Discharge Problem: Acute dyspnea, Generalized weakness, Lactic acid increased, Hypokalemia, Lab test positive for detection of COVID-19 virus UTI (urinary tract infection) Qualifiers: Urinary tract infection type: site unspecified Hematuria presence: with hematuria Qualified Code(s): N39.0 - Urinary tract infection, site not specified Fever Qualifiers: Fever type: unspecified Qualified Code(s): R50.9 - Fever, unspecified Instructions Instructions: Shortness of Breath, Adult, Xgzi-lq-Spuk Viral Respiratory Infection, Bpxi-Oq-Iaeb Hand Washing, Kccc-th-Iwsu Chronic Obstructive Pulmonary Disease, Wwjv-ef-Hyjp Type 2 Diabetes Mellitus, Self Care, Adult, Kigh-nt-Qqcd Droplet Precautions, Lvue-wi-Udui Contact Precautions, Jspc-em-Glps Hypertension, Vtxd-iy-Apih Fever, Adult, Zvtm-ca-Proj Forms: Precautions for COVID19 Patient Portal Social Distancing
[2019-10-22 16:12] LABS: ABG ALLEN TEST POS; ABG HCO3 21.1 mmol/L (22-26)
--- NOTE | 2019-10-22 16:12 | RAD ---
HISTORYSOBSTUDYCHEST, 1 [id number]/07/2019FINDINGSThe trachea is midline. The cardiac silhouette is unremarkable. Coarsening of the interstitium consistent and hyperexpansion are chronic interstitial lung changes and COPD. The lungs are clear without focal infiltrate or effusion. The bony thorax is unremarkable.[ ]IMPRESSIONCOPD with chronic interstitial lung changes without acute airspace disease or CHF.Electronically signed by: FELIPE MOYA (Oct 22, 2019 16:11:42)
[2019-10-22] MEDS ORDERED: TORADOL 30 MG VIAL IVP ONE (16:18)
[2019-10-22] MEDS ORDERED: ROCEPHIN VIAL 1 GRAM 1 G in NS 100 ML IV + SPIKE MINIBAG* 100 ML IV ONE (16:19)
[2019-10-22] MEDS ORDERED: TORADOL 30 MG VIAL ONE (16:23)
[2019-10-22 16:29] LABS: BASOPHILS % (AUTO) 0.8 % (0.2-1.0); EOSINOPHILS % (AUTO) 0.2 % (0.9-2.9); HEMATOCRIT 39.2 % (42.0-54.0); HEMOGLOBIN 13.6 g/dL (13.5-18.0); LYMPHOCYTES # (AUTO) 0.5 X10^3/uL (1.3-2.9); LYMPHOCYTES % (AUTO) 15.3 % (21.0-51.0); MEAN CORPUSCULAR HEMOGLOBIN 34.3 pg (27.0-34.0); MEAN CORPUSCULAR HGB CONC 34.7 g/dL (33.0-35.0); MEAN CORPUSCULAR VOLUME 98.7 fL (80.0-100.0); MONOCYTES # (AUTO) 0.4 x10^3/uL (0.3-0.8); MONOCYTES % (AUTO) 11.9 % (0.0-13.0); NEUTROPHILS # (AUTO) 2.6 x10^3/uL (2.2-4.8); NEUTROPHILS % (AUTO) 71.8 % (42.0-75.0); PLATELET COUNT 153 X10^3/uL (150.0-450.0); RED BLOOD COUNT 3.97 X10^6/uL (4.7-6.0); RED CELL DISTRIBUTION WIDTH 13.9 % (11.6-16.5); WHITE BLOOD COUNT 3.6 X10^3/uL (3.6-10.0)
[2019-10-22 16:42] LABS: LACTIC ACID 2.8 mmol/L (0.4-2.0)
[2019-10-22 16:43] LABS: BLOOD UREA NITROGEN 14 mg/dL (7-18); CALCIUM 8.7 mg/dL (8.5-10.1); CARBON DIOXIDE 26.6 mmol/L (21-32); CHLORIDE 100 mmol/L (98-107); COR NA(FOR HYPERGLY) 138 mmol/L (136-145); CREATININE 1.31 mg/dL (0.70-1.30); SODIUM 138 mmol/L (136-145); TROPONIN I < 0.02 ng/mL (0-1.5); eGFR NON BLACK RACES 57 (>60)
[2019-10-22] MEDS ORDERED: NS 1000 ML 1,000 ML ONE (16:45)
[2019-10-22] MEDS ORDERED: NS 100 ML IV + SPIKE MINIBAG* 100 ML IV ONE (16:45)
[2019-10-22] MEDS ORDERED: ROCEPHIN VIAL 1 GRAM ONE (16:47)
[2019-10-22 16:48] LABS: ALANINE AMINOTRANSFERASE 41 Units/L (12-78); ALBUMIN 3.2 g/dL (3.4-5.0); ALKALINE PHOSPHATASE 76 Units/L (46-116); ASPARTATE AMINO TRANSFERASE 33 Units/L (15-37); CKMB % 1.4 % (<4); COR CA(FOR HYPOALB) 9.3 mg/dL (8.5-10.1); CREATINE KINASE 74 Units/L (39-308); CREATINE KINASE MB < 1.0 ng/mL (0-4.0); TOTAL PROTEIN 8.1 g/dL (6.4-8.2)
[2019-10-22 16:51] LABS: BILIRUBIN,URINE NEGATIVE (NEGATIVE); BLOOD/HEMOGLOBIN,URINE 1+ (NEGATIVE); GLUCOSE, URINE NEGATIVE (NEGATIVE); KETONES,URINE NEGATIVE (NEGATIVE); LEUKOCYTE ESTERASE ,URINE 1+ (NEGATIVE); NITRITES,URINE NEGATIVE (NEGATIVE); PROTEIN,URINE 2+ (NEGATIVE); UROBILINOGEN,URINE NORMAL (NORMAL)
[2019-10-22] MEDS: NS 1000 ML 1,000 ML IV SCH (17:00)
[2019-10-22 17:01] LABS: APPEARANCE,URINE SLIGHTLY HAZY (CLEAR); BACTERIA,URINE 1+ /HPF (NEGATIVE); COLOR,URINE YELLOW (YELLOW); SQUAMOUS EPITHELIAL CELL,UR FEW /HPF (NEGATIVE)
[2019-10-22 17:02] LABS: MUCUS,URINE MODERATE /HPF (NEGATIVE)
[2019-10-22] MEDS ORDERED: REMDESIVIR (INVESTIGATIONAL DRUG GS-5734) 200 MG in NS 250 ML IV 250 ML IV NR (19:45)
[2019-10-22 20:49] VITALS: BMI 32.8
[2019-10-22] MEDS: VENTOLIN or PROAIR HFA IN PRN (21:15)
[2019-10-22] MEDS ORDERED: LOVENOX INJ 30 MG SYR SC SCH (23:00)
[2019-10-22] MEDS ORDERED: VITAMIN A PO SCH (23:00)
[2019-10-22] MEDS ORDERED: VITAMIN D (1.25MG) PO SCH (23:00)
[2019-10-22 23:12] LABS: CKMB % 1.2 % (<4); CREATINE KINASE 82 Units/L (39-308); CREATINE KINASE MB < 1.0 ng/mL (0-4.0); TROPONIN I < 0.02 ng/mL (0-1.5)
[2019-10-23] MEDS ORDERED: NS 100 ML IV 100 ML IV ONE ×2 (01:39→08:54)
[2019-10-23] MEDS: ASCORBIC ACID INJ MULTI-DOSE VIAL 1,500 MG in NS 100 ML IV 100 ML IV SCH ×2 (02:01→09:33)
[2019-10-23] MEDS ORDERED: ZOFRAN INJ 4 MG VIAL IVP PRN (03:22)
[2019-10-23] MEDS ORDERED: ZOFRAN INJ 4 MG VIAL ONE (03:24)
[2019-10-23 05:02] LABS: ABG BASE EXCESS -0.4 mmol/L (-2.0-2.0); ABG HCO3 21.5 mmol/L (22-26)
[2019-10-23 05:30] LABS: BASOPHILS % (AUTO) 0.2 % (0.2-1.0); EOSINOPHILS % (AUTO) 0.1 % (0.9-2.9); HEMATOCRIT 36.1 % (42.0-54.0); HEMOGLOBIN 12.4 g/dL (13.5-18.0); LYMPHOCYTES # (AUTO) 0.6 X10^3/uL (1.3-2.9); LYMPHOCYTES % (AUTO) 16.9 % (21.0-51.0); MEAN CORPUSCULAR HEMOGLOBIN 33.7 pg (27.0-34.0); MEAN CORPUSCULAR HGB CONC 34.4 g/dL (33.0-35.0); MEAN CORPUSCULAR VOLUME 97.9 fL (80.0-100.0); MEAN PLATELET VOLUME 9.1 fL (7.4-11.0); MONOCYTES # (AUTO) 0.4 x10^3/uL (0.3-0.8); NEUTROPHILS # (AUTO) 2.5 x10^3/uL (2.2-4.8); NEUTROPHILS % (AUTO) 70.8 % (42.0-75.0); PLATELET COUNT 128 X10^3/uL (150.0-450.0); RED BLOOD COUNT 3.68 X10^6/uL (4.7-6.0); RED CELL DISTRIBUTION WIDTH 13.4 % (11.6-16.5); WHITE BLOOD COUNT 3.5 X10^3/uL (3.6-10.0)
[2019-10-23 05:53] LABS: ALANINE AMINOTRANSFERASE 35 Units/L (12-78); ALBUMIN 2.8 g/dL (3.4-5.0); ALKALINE PHOSPHATASE 68 Units/L (46-116); ASPARTATE AMINO TRANSFERASE 34 Units/L (15-37); BLOOD UREA NITROGEN 14 mg/dL (7-18); CALCIUM 8.1 mg/dL (8.5-10.1); CARBON DIOXIDE 22.5 mmol/L (21-32); CHLORIDE 101 mmol/L (98-107); COR CA(FOR HYPOALB) 9.1 mg/dL (8.5-10.1); COR NA(FOR HYPERGLY) 136 mmol/L (136-145); CREATINE KINASE 97 Units/L (39-308); CREATINE KINASE MB < 1.0 ng/mL (0-4.0); CREATININE 1.13 mg/dL (0.70-1.30); MAGNESIUM 1.6 mg/dL (1.7-2.9); SODIUM 136 mmol/L (136-145); TOTAL PROTEIN 7.2 g/dL (6.4-8.2); TROPONIN I < 0.02 ng/mL (0-1.5); eGFR NON BLACK RACES > 60 (>60)
--- NOTE | 2019-10-23 06:17 | RAD ---
Chest AP portableIndication: DyspneaCOMPARISONJune 2019.FINDINGSThere is no pneumothorax or effusion. There is vague right midlung zone opacity which could reflect developing infiltrate. Heart size is prominent.IMPRESSIONDeveloping right midlung opacity could reflect pneumonia. Follow-up to resolution to exclude underlying lesion.Electronically signed by: YOSEF VARGHESE (Oct 23, 2019 06:16:55)
[2019-10-23] MEDS ORDERED: K-RIDER 10 MEQ/NS 100 ML 10 MEQ/100 ML BAG IV PRN (06:21)
[2019-10-23] MEDS ORDERED: POTASSIUM CHLORIDE LIQ 20 MEQ UDC PO PRN (06:21)
[2019-10-23] MEDS ORDERED: MICRO K EXTEN CAP 10 MEQ PO PRN (06:21)
[2019-10-23] MEDS ORDERED: POTASSIUM CHL 40 MEQ/NS 0.45% 500 ML IV PRN (06:21)
[2019-10-23] MEDS ORDERED: POTASSIUM CHL 60 MEQ/NS 0.45% 500 ML IV PRN (06:21)
[2019-10-23] MEDS ORDERED: KLOR-CON PO PRN (06:21)
[2019-10-23] MEDS ORDERED: MAGNESIUM SULFATE 1 GRAM/100 mL PREMIX 2 G/200 ML BAG IV ONE (06:24)
[2019-10-23] MEDS: NS 1000 ML 1,000 ML IV SCH ×2 (06:45→21:52)
[2019-10-23] MEDS: MAGNESIUM SULFATE 1 GRAM/100 mL PREMIX 1 GM/100 ML BAG IV PRN ×2 (06:46→14:30)
[2019-10-23] MEDS: THIAMINE HCL INJ IVP SCH ×2 (08:31)
[2019-10-23] MEDS: ZINC SULFATE PO SCH ×2 (08:32)
[2019-10-23] MEDS: PLAQUENIL PO SCH ×2 (08:32)
[2019-10-23] MEDS: K-DUR TAB 20 MEQ PO PRN ×2 (08:34→21:54)
[2019-10-23] MEDS ORDERED: CORTEF ONE (08:34)
[2019-10-23] MEDS: CORTEF PO SCH ×2 (08:35)
[2019-10-23] MEDS ORDERED: ROCEPHIN VIAL 1 GRAM 1 G in NS 100 ML IV + SPIKE MINIBAG* 100 ML IV SCH (09:00)
[2019-10-23] MEDS: VENTOLIN or PROAIR HFA IN PRN ×4 (09:20→21:34)
[2019-10-23] MEDS: REMDESIVIR (INVESTIGATIONAL DRUG GS-5734) 100 MG in NS 250 ML IV 250 ML IV SCH (10:32)
[2019-10-23] MEDS: SOLU-Medrol 40 MG VIAL IVP SCH ×3 (10:39→21:53)
--- NOTE | 2019-10-23 11:19 | DR.H&P ---
H&P - History & Physical for Day of: H&P Date: 10/22/19 - Chief Complaint Chief Complaint: COUGH, SOB, DIZZINESS, WEAKNESS, FEVER, COVID-19 POSITIVE - History of Present Illness History of Present Illness: IS A 74 YEAR OLD PATIENT OF OURS. HE PRESENTED TO THE ER WITH COMPLAINTS OF SHORTNESS OF BREATH, COUGH, DIZZINESS, WEAKNESS, AND FEVER FOR ABOUT A WEEK. PATIENT REPORTS TESTING POSITIVE FOR COVID-19 APPROXIMATELY A WEEK AGO. HIS SPOUSE ALSO TESTED POSITIVE. HIS PMH INCLUDES: COPD, CAD, [place], HTN, HYPERLIPIDEMIA, GERD, DIABETES II, TOTAL KNEE REPLACEMENT, AND TOTAL SHOULDER REPLACEMENT. ON ARRIVAL TO THE HOSPITAL, VITALS WERE 99.0-112-16-95%-124/92. LABS WERE OBTAINED. ABNORMAL LAB VALUES INCLUDE THE FOLLOWING: RBC 3.97, HCT 39.2, PTT 42.7, CREATININE 1.31, GLUCOSE 113, LACTIC ACID 2.8, FERRITIN 895, ALBUMIN 3.2, CRP 16.70. CARDIAC ENZYMES WERE WITHIN NORMAL LIMITS. AN ABG WAS OBTAINED AND REVEALED: 7.500, PC02 27.0, P02 79.0, HC03 21.1, 02 SATURATION 97.0, BASE EXCESS -1.0, FI02 28.0. A URINALYSIS WAS OBTAINED AND REVEALED: WBC 5-10, RBC 3-5, BACTERIA 1+, LEUKOCYTES 1+. BLOOD AND URINE CULTURES WERE SET UP. A CHEST XRAY WAS OBTAINED AND REVEALED: COPD with chronic interstitial lung changes without acute airspace disease or CHF. EKG REVEALED: SINUS TACHYCARDIA WITH HR 100. SHE WAS ADMITTED TO THE HOSPITAL FOR FURTHER EVALUATION AND TREATMENT OF COVID-19, ACUTE BRONCHITIS, UTI, GENERALIZED WEAKNESS, LACTIC ACIDEMIA, AND SOB. HE WAS GIVEN TORADOL 30MG IV X 1 DOSE, ROCPEPHIN 1G IV X 1 DOSE, AND REMDESIVIR 200MG IV X 1 DOSE. WE THEN STARTED NORMAL SALINE AT 75 ML/HR, LEVAQUIN 500MG IV DAILY, REMDESIVIR 100MG IV DAILY, LOVENOX 40MG SC DAILY, VENTOLIN INHALER 2 PUFFS Q4H PRN, AND THE POTASSIUM AND MAGNESIUM PROTOCOLS. TODAY, WE WILL ADD SOLU-MEDROL 40MG IV Q8H AND HUMULIN R SLIDIDNG SCALE. OTHERWISE, WE WILL CONTINUE WITH CURRENT PLAN OF CARE. WE PLAN TO FOLLOW UP WITH AM LABS AND CONTINUE TO MONITOR. - Past Medical History Past Medical History: Angina, Arthritis, COPD, Coronary Artery Disease, Diabetes, Dyslipidemia, GERD, Hypertension, [place] Additional Medical History: Previous Blood Transfusion - Past Surgical History Surgical History: Joint Replacement Additional Surgical History: Two Heart Catheterization's, Right Total Knee, Right Shoulder Replacement, Fatty tissue removed from left side of neck - Family History Family Medical History: Cancer, [place], Coronary Artery Disease, Heart Failure, Sudden Cardiac , Hypertension - Social History Does patient currently use any type of tobacco product: No Have you used tobacco products in the last 12 months: No Type of Tobacco Use: None Does any household member use tobacco: No Alcohol Use: None Drug Use: None - Medications Home Medications: No Known Drug Allergies Allergy (Verified 10/22/19 14:59) CONTINUE taking the following medications aspirin 81 mg PO DAILY 10/22/19 [History] glipizide 2.5 mg PO DAILY 10/22/19 [History] metformin 850 mg PO BID 10/22/19 [History] metoprolol succinate 25 mg PO DAILY 10/22/19 [History] - Review of Systems Constitutional: See HPI, Fever, Chills, Weakness Eyes: No Symptoms Reported ENT: No Symptoms Reported Respiratory: See HPI, Cough, Shortness of Breath, SOB with Excertion, Wheezing Cardiovascular: No Symptoms Reported Gastrointestinal: No Symptoms Reported Genitourinary: No Symptoms Reported Musculoskeletal: No Symptoms Reported Skin: No Symptoms Reported Neurological: Weakness - Physical Exam Vital Signs: Temperature 98.9 F Pulse Rate [Left] 78 Pulse Rate 84 Respiratory Rate 22 Blood Pressure [Left Arm] 127/68 Blood Pressure [Right Arm] 121/59 Blood Pressure 133/60 O2 Sat by Pulse Oximetry 95 Oriented: Normal Eyes: Normal Ear: Normal Nose: Normal Throat: Normal Respiratory: Wheezes Throughout Cardiovascular: Tachycardia. negative: S3, S4, Murmur : Normal Auscultation: Bowel Sounds: Normal Palpation: Normal Tenderness: Normal Skin: Normal Musculoskeletal: Normal Psychiatric: Normal Mood Description: Calm Affect: Normal Speech Pattern: Clear - Assessment/Plan (1) COVID-19 Status: Acute Plan: ADMIT, ROCPEPHIN 1G IV X 1 DOSE, AND REMDESIVIR 200MG IV X 1 DOSE, THEN NORMAL SALINE AT 75 ML/HR, LEVAQUIN 500MG IV DAILY, REMDESIVIR 100MG IV DAILY, SOLU-MEDROL 40MG IV Q8H, HUMULIN R SLIDING SCLAE, LOVENOX 40MG SC DAILY, VENTOLIN INHALER 2 PUFFS Q4H PRN, AND THE POTASSIUM AND MAGNESIUM PROTOCOLS (2) UTI (urinary tract infection) Qualifiers: Urinary tract infection type: acute cystitis Hematuria presence: without hematuria Qualified Code(s): N30.00 - Acute cystitis without hematuria Status: Acute (3) Lactic acidemia Status: Acute (4) Shortness of breath Status: Acute (5) Fever Qualifiers: Fever type: unspecified Qualified Code(s): R50.9 - Fever, unspecified Status: Acute (6) Generalized weakness Status: Acute (7) COPD (chronic obstructive pulmonary disease) Qualifiers: COPD type: unspecified COPD Qualified Code(s): J44.9 - Chronic obstructive pulmonary disease, unspecified Status: Chronic (8) Diabetes mellitus, type 2 Qualifiers: Diabetes mellitus [employer] insulin use: with [employer] use Diabetes mellitus complication status: without complication Qualified Code(s): E11.9 - Type 2 diabetes mellitus without complications; Z79.4 - [facility]CI (current) use of insulin Status: Chronic (9) History of [place] (myocardial infarction) Status: Chronic (10) Hyperlipidemia Qualifiers: Hyperlipidemia type: mixed hyperlipidemia Status: Chronic (11) Hypertension Qualifiers: Hypertension type: essential hypertension Qualified Code(s): I10 - Essential (primary) hypertension Status: Chronic - Allergies Allergies/Adverse Reactions: Allergies Allergy/AdvReac Type Severity Reaction Status Date / Time No Known Drug Allergies Allergy Verified 10/22/19 14:59
[2019-10-23] MEDS ORDERED: HumuLIN R ONE (11:51)
[2019-10-23] MEDS: HumuLIN R SUBCUT PRN ×3 (11:52→21:53)
[2019-10-23] MEDS: LEVAQUIN PREMIX IV 500 MG 500 MG/100 ML BAG IV SCH (13:13)
[2019-10-23] MEDS: TOPROL XL PO SCH (14:00)
[2019-10-23] MEDS: ASPIRIN EC 81 MG PO SCH (14:00)
[2019-10-23] MEDS: PLAVIX PO SCH (14:00)
[2019-10-23] MEDS: PriLOSEC PO SCH (14:01)
[2019-10-23] MEDS: SNACK - Diabetic Appropriate PO SCH (20:00)
[2019-10-23 20:40] LABS: CRYPTOSPORIDIUM PARVUM ANTIGEN NEGATIVE (NEGATIVE); GIARDIA LAMBLIA ANTIGEN NEGATIVE (NEGATIVE)
[2019-10-23] MEDS: LIPITOR TAB 40 MG PO SCH (21:50)
[2019-10-23] MEDS: LOVENOX INJ 40 MG SYR SC SCH (21:50)
[2019-10-23] MEDS: NEURONTIN CAP 300 MG PO SCH (21:51)
[2019-10-23] MEDS: ZESTRIL TAB 10 MG PO SCH (21:53)
[2019-10-24 05:41] LABS: BASOPHILS # (AUTO) 0.1 X10^3/uL (0.0-0.1); BASOPHILS % (AUTO) 2.6 % (0.2-1.0); EOSINOPHILS % (AUTO) 0.3 % (0.9-2.9); HEMATOCRIT 37.1 % (42.0-54.0); HEMOGLOBIN 12.8 g/dL (13.5-18.0); LYMPHOCYTES # (AUTO) 0.3 X10^3/uL (1.3-2.9); LYMPHOCYTES % (AUTO) 12.7 % (21.0-51.0); MEAN CORPUSCULAR HGB CONC 34.6 g/dL (33.0-35.0); MEAN CORPUSCULAR VOLUME 98.2 fL (80.0-100.0); MEAN PLATELET VOLUME 8.7 fL (7.4-11.0); MONOCYTES # (AUTO) 0.2 x10^3/uL (0.3-0.8); MONOCYTES % (AUTO) 8.1 % (0.0-13.0); NEUTROPHILS # (AUTO) 1.9 x10^3/uL (2.2-4.8); NEUTROPHILS % (AUTO) 76.3 % (42.0-75.0); PLATELET COUNT 148 X10^3/uL (150.0-450.0); RED BLOOD COUNT 3.77 X10^6/uL (4.7-6.0); RED CELL DISTRIBUTION WIDTH 13.8 % (11.6-16.5); WHITE BLOOD COUNT 2.5 X10^3/uL (3.6-10.0)
[2019-10-24 05:48] LABS: ALANINE AMINOTRANSFERASE 35 Units/L (12-78); ALBUMIN 2.7 g/dL (3.4-5.0); ALKALINE PHOSPHATASE 73 Units/L (46-116); ASPARTATE AMINO TRANSFERASE 29 Units/L (15-37); BLOOD UREA NITROGEN 13 mg/dL (7-18); CALCIUM 8.6 mg/dL (8.5-10.1); CARBON DIOXIDE 22.2 mmol/L (21-32); CHLORIDE 105 mmol/L (98-107); COR CA(FOR HYPOALB) 9.6 mg/dL (8.5-10.1); COR NA(FOR HYPERGLY) 141 mmol/L (136-145); CREATININE 1.25 mg/dL (0.70-1.30); MAGNESIUM 2.1 mg/dL (1.7-2.9); SODIUM 139 mmol/L (136-145); TOTAL PROTEIN 7.4 g/dL (6.4-8.2); eGFR NON BLACK RACES > 60 (>60)
[2019-10-24 06:03] LABS: PLATELET MORPHOLOGY COMMENT NORMAL (NORMAL)
[2019-10-24] MEDS: SOLU-Medrol 40 MG VIAL IVP SCH ×3 (06:06→21:15)
[2019-10-24] MEDS: HumuLIN R SUBCUT PRN ×4 (06:07→21:15)
--- NOTE | 2019-10-24 06:12 | RAD ---
HISTORYSOBSTUDYPortable AP [id number]/15/2020FINDINGSNormal heart size and clear left chest. Persistent demonstration of ill-defined opacity right midlung, suggesting a developing infiltrate. No hilar enlargement, pneumothorax or pleural fluid.IMPRESSIONRight midlung opacity consistent with developing airspace process. Continued follow-up suggested.Electronically signed by: ISABELLA FENG (Oct 24, 2019 06:11:34)
[2019-10-24] MEDS: LEVAQUIN PREMIX IV 500 MG 500 MG/100 ML BAG IV SCH (08:26)
[2019-10-24] MEDS: ASPIRIN EC 81 MG PO SCH (08:31)
[2019-10-24] MEDS: ZESTRIL TAB 10 MG PO SCH ×2 (08:31→21:15)
[2019-10-24] MEDS: TOPROL XL PO SCH (08:31)
[2019-10-24] MEDS: PriLOSEC PO SCH (08:31)
[2019-10-24] MEDS: PLAVIX PO SCH (08:32)
[2019-10-24] MEDS ORDERED: LOVENOX INJ 40 MG SYR SC SCH (09:00)
[2019-10-24] MEDS ORDERED: VITAMIN A PO SCH (09:00)
[2019-10-24] MEDS ORDERED: VITAMIN D3 25 mcg (1,000 UNITS) PO SCH (09:00)
[2019-10-24] MEDS: REMDESIVIR (INVESTIGATIONAL DRUG GS-5734) 100 MG in NS 250 ML IV 250 ML IV SCH (09:49)
[2019-10-24] MEDS: NS 1000 ML 1,000 ML IV SCH (10:10)
[2019-10-24] MEDS: VENTOLIN or PROAIR HFA IN PRN ×3 (12:00→20:15)
[2019-10-24] MEDS ORDERED: SOLU-Medrol 40 MG VIAL ONE (14:03)
[2019-10-24] MEDS ORDERED: HumuLIN R ONE ×2 (15:59→20:57)
[2019-10-24] MEDS: SNACK - Diabetic Appropriate PO SCH (20:50)
[2019-10-24] MEDS ORDERED: NEURONTIN CAP 300 MG PO ONE (20:56)
[2019-10-24] MEDS: LOVENOX INJ 40 MG SYR SC SCH (21:15)
[2019-10-24] MEDS: NEURONTIN CAP 300 MG PO SCH (21:15)
[2019-10-24] MEDS: LIPITOR TAB 40 MG PO SCH (21:15)
[2019-10-25] MEDS: NS 1000 ML 1,000 ML IV SCH ×3 (01:00→16:08)
[2019-10-25] MEDS ORDERED: HumuLIN R ONE (05:30)
[2019-10-25 05:45] LABS: BASOPHILS % (AUTO) 0 % (0.2-1.0); HEMATOCRIT 33.9 % (42.0-54.0); HEMOGLOBIN 11.5 g/dL (13.5-18.0); LYMPHOCYTES # (AUTO) 0.5 X10^3/uL (1.3-2.9); LYMPHOCYTES % (AUTO) 7.2 % (21.0-51.0); MEAN CORPUSCULAR HEMOGLOBIN 33.4 pg (27.0-34.0); MEAN CORPUSCULAR HGB CONC 33.8 g/dL (33.0-35.0); MEAN CORPUSCULAR VOLUME 98.7 fL (80.0-100.0); MEAN PLATELET VOLUME 9.4 fL (7.4-11.0); MONOCYTES # (AUTO) 0.5 x10^3/uL (0.3-0.8); MONOCYTES % (AUTO) 6.7 % (0.0-13.0); NEUTROPHILS # (AUTO) 6.1 x10^3/uL (2.2-4.8); NEUTROPHILS % (AUTO) 86.1 % (42.0-75.0); PLATELET COUNT 172 X10^3/uL (150.0-450.0); RED BLOOD COUNT 3.43 X10^6/uL (4.7-6.0); RED CELL DISTRIBUTION WIDTH 13.8 % (11.6-16.5); WHITE BLOOD COUNT 7.1 X10^3/uL (3.6-10.0)
[2019-10-25] MEDS: SOLU-Medrol 40 MG VIAL IVP SCH ×3 (06:07→21:20)
[2019-10-25] MEDS: HumuLIN R SUBCUT PRN ×4 (06:07→21:20)
[2019-10-25 06:09] LABS: ALANINE AMINOTRANSFERASE 45 Units/L (12-78); ALBUMIN 2.4 g/dL (3.4-5.0); ALKALINE PHOSPHATASE 60 Units/L (46-116); ASPARTATE AMINO TRANSFERASE 46 Units/L (15-37); BLOOD UREA NITROGEN 18 mg/dL (7-18); CALCIUM 8.2 mg/dL (8.5-10.1); CARBON DIOXIDE 24.6 mmol/L (21-32); CHLORIDE 106 mmol/L (98-107); COR CA(FOR HYPOALB) 9.5 mg/dL (8.5-10.1); COR NA(FOR HYPERGLY) 141 mmol/L (136-145); CREATININE 1.15 mg/dL (0.70-1.30); SODIUM 138 mmol/L (136-145); TOTAL PROTEIN 6.5 g/dL (6.4-8.2); eGFR NON BLACK RACES > 60 (>60)
--- NOTE | 2019-10-25 06:32 | RAD ---
HISTORYSOBSTUDYPortable AP chestCOMPARISONJune 2019FINDINGSNormal heart size and clear left lung. The previously described opacity in the right midlung is less apparent today; the right lung is now almost clear. There is no new abnormality demonstrated.IMPRESSIONImproved aeration of the right lung as described. Continued follow-up suggested to document complete resolution of right midlung pulmonary density.Electronically signed by: ISABELLA FENG (Oct 25, 2019 06:31:08)
[2019-10-25] MEDS: VENTOLIN or PROAIR HFA IN PRN (08:15)
[2019-10-25] MEDS: LEVAQUIN PREMIX IV 500 MG 500 MG/100 ML BAG IV SCH (08:29)
--- NOTE | 2019-10-25 08:29 | PCM.PROG ---
Progress Note - Progress Note for Day of Date of Exam: 10/24/19 - Subjective Subjective: IS BEING TREATED FOR COVID-19, PNEUMONIA, HYPOXIA, AND SHORTNESS OF BREATH. TODAY, HE IS ALERT AND OREINTED, LYING IN BED ON MORNING ROUNDS. HE CONTINUES WITH A NON-PRODUCTIVE COUGH, SHORTNESS OF BREATH, WEAKNESS. ON EXAMINATION, HEART IS REGULAR IN RATE AND RHYTHM. BILATERAL LUNGS ARE NOTED WITH SCATTERED WHEEZING THROUGHOUT. ABDOMEN IS ROUND, SOFT, AND NON-TENDER WITH NORMAL BOWEL SOUNDS NOTED IN ALL QUADRANTS. HER VITALS THIS MORNING ARE: 98.4-92-12-97%-163/80. LABS WERE OBTAINED. ABNORMAL LAB VALUES INCLUDE THE FOLLOWING: wbc 2.5, rbc 3.77, hgb 12.8, hct 37.1, plt count 148, glucose 204, ferritin 948, crp 22.80, albumin 2.7, globulin 4.7. BLOOD, URINE, AND STOOL CULTURES ARE PENDING. A CHEST XRAY WAS OBTAINED AND REVEALED: Right midlung opacity consistent with developing airspace process. Continued follow-up suggested. HE IS CURRENTLY RECEIVING: NORMAL SALINE AT 75 ML/HR, LEVAQUIN 500MG IV DAILY, REMDESIVIR 100MG IV DAILY, SOLU-MEDROL 40MG IV Q8H, LOVENOX 40MG SC DA H[place], HUMULIN R SLIDIDNG SCALE, VENTOLIN INHALER 2 PUFFS Q4H PRN, AND THE POTASSIUM AND MAGNESIUM PROTOCOLS. WE WILL CONTINUE WITH CURRENT PLAN OF CARE TODAY. OTHERWISE, WE WILL FOLLOW UP WITH AM LABS AND CHEST XRAY AND CONTINUE TO MONITOR. - Past Medical Family Social History Past Med/Fam/Surg Hx: No changes since H&P Allergies: Allergies No Known Drug Allergies Allergy (Verified 10/22/19 14:59) - Review of Systems ROS: No change since H&P - Vital Signs and I&O's Vital Signs: Temperature 98.5 F Pulse Rate [Left] 78 Pulse Rate 97 Respiratory Rate 16 Blood Pressure [Left Arm] 127/68 Blood Pressure [Right Arm] 121/59 Blood Pressure 163/79 O2 Sat by Pulse Oximetry 96 Intake and Output: Intake & Output 10/22/19 10/23/19 10/24/19 10/25/19 11:59 11:59 11:59 11:59 Intake Total 1969 / 1969 3394 / 3394 3906 / 3906 Output Total 800 / 800 500 / 500 600 / 600 Balance 1170 / 1170 2894 / 2894 3306 / 3306 - Physical Exam Oriented: Normal Eyes: Normal Ear: Normal Nose: Normal Throat: Normal Respiratory: Generalized, Wheezes Cardiovascular: Normal. negative: S3, S4, Murmur : Normal Auscultation: Bowel Sounds: Normal Palpation: Normal Tenderness: Normal Skin: Normal Musculoskeletal: Normal Psychiatric: Normal Mood Description: Calm Affect: Normal Speech Pattern: Clear, Appropriate - Laboratory and Diagnostics Result Diagrams: 10/25/19 05:13 10/25/19 05:13 Labs: 10/22/19 16:10 Blood Blood Culture - Preliminary 10/22/19 16:07 Blood Blood Culture - Preliminary 10/23/19 19:27 Stool Stool Culture - Preliminary 10/23/19 19:27 Stool - Final 10/22/19 16:40 Urine,Clean Catch Urine Culture - Final Laboratory WBC 7.1 X10^3/uL (3.6-10.0) 10/25/19 05:13 RBC 3.43 X10^6/uL (4.7-6.0) L 10/25/19 05:13 Hgb 11.5 g/dL (13.5-18.0) L 10/25/19 05:13 Hct 33.9 % (42.0-54.0) L 10/25/19 05:13 MCV 98.7 fL (80.0-100.0) 10/25/19 05:13 MCH 33.4 pg (27.0-34.0) 10/25/19 05:13 MCHC 33.8 g/dL (33.0-35.0) 10/25/19 05:13 RDW 13.8 % (11.6-16.5) 10/25/19 05:13 Plt Count 172 X10^3/uL (150.0-450.0) 10/25/19 05:13 Plt Count Comment Adequate (ADEQUATE) 10/24/19 04:37 MPV 9.4 fL (7.4-11.0) 10/25/19 05:13 Neut % (Auto) 86.1 % (42.0-75.0) H 10/25/19 05:13 Lymph % (Auto) 7.2 % (21.0-51.0) L 10/25/19 05:13 [place] % (Auto) 6.7 % (0.0-13.0) 10/25/19 05:13 Eos % (Auto) 0.0 % (0.9-2.9) L 10/25/19 05:13 Baso % (Auto) 0 % (0.2-1.0) L 10/25/19 05:13 Neut # (Auto) 6.1 x10^3/uL (2.2-4.8) H 10/25/19 05:13 Lymph # (Auto) 0.5 X10^3/uL (1.3-2.9) L 10/25/19 05:13 [place] # (Auto) 0.5 x10^3/uL (0.3-0.8) 10/25/19 05:13 Eos # (Auto) 0.0 x10^3/uL (0.0-0.2) 10/25/19 05:13 Baso # (Auto) 0.0 X10^3/uL (0.0-0.1) 10/25/19 05:13 Absolute Nucleated RBC 0.1 /100WBC 10/25/19 05:13 Total Counted 100 10/24/19 04:37 Neutrophils % (Manual) 69 % (39-76) 10/24/19 04:37 Lymphocytes % (Manual) 28 % (13-43) 10/24/19 04:37 Monocytes % (Manual) 3 % (4-9) L 10/24/19 04:37 Plt Morphology Comment Normal (NORMAL) 10/24/19 04:37 RBC Morphology Normal (NORMAL) 10/24/19 04:37 PT 14.3 SECONDS (11.8-14.3) 10/23/19 04:36 INR Target Range - 10/23/19 04:36 INR 1.14 (0.8-1.3) 10/23/19 04:36 APTT 42.7 SECONDS (22.9-36.5) H 10/23/19 04:36 PTT Comment - 10/23/19 04:36 Sample Site Lb 10/23/19 04:55 ABG pH 7.510 (7.35-7.45) H 10/23/19 04:55 ABG pCO2 27.0 mmHg (35.0-45.0) L 10/23/19 04:55 ABG pO2 81.0 mmHg (80.0-100.0) 10/23/19 04:55 ABG HCO3 21.5 mmol/L (22-26) L 10/23/19 04:55 ABG O2 Saturation 97.0 % (90-100) 10/23/19 04:55 ABG Base Excess -0.4 mmol/L (-2.0-2.0) 10/23/19 04:55 Carlos Test N/a 10/23/19 04:55 A-a Gradient 85.0 mmHg 10/23/19 04:55 FiO2 28.0 10/23/19 04:55 Blood Gas Comments Pascual well ae 10/23/19 04:55 Sodium 138 mmol/L (136-145) 10/25/19 05:13 Corrected Sodium 141 mmol/L (136-145) 10/25/19 05:13 Potassium 4.5 mmol/L (3.5-5.1) 10/25/19 05:13 Chloride 106 mmol/L (98-107) 10/25/19 05:13 Carbon Dioxide 24.6 mmol/L (21-32) 10/25/19 05:13 BUN 18 mg/dL (7-18) 10/25/19 05:13 Creatinine 1.15 mg/dL (0.70-1.30) 10/25/19 05:13 Est GFR (MDRD) Af Amer > 60 (>60) 10/25/19 05:13 Est GFR (MDRD) Non-Af > 60 (>60) 10/25/19 05:13 Glucose 215 mg/dL (65-99) H 10/25/19 05:13 Lactic Acid 2.8 mmol/L (0.4-2.0) H 10/22/19 16:07 Calcium 8.2 mg/dL (8.5-10.1) L 10/25/19 05:13 Corrected Calcium 9.5 mg/dL (8.5-10.1) 10/25/19 05:13 Magnesium 2.1 mg/dL (1.7-2.9) 10/24/19 04:37 Ferritin 953 ng/mL (26-388) H 10/25/19 05:13 Total Bilirubin 0.20 mg/dL (0.2-1.0) 10/25/19 05:13 AST 46 Units/L (15-37) H 10/25/19 05:13 ALT 45 Units/L (12-78) 10/25/19 05:13 Alkaline Phosphatase 60 Units/L (46-116) 10/25/19 05:13 Lactate Dehydrogenase 189 Units/L (85-227) 10/22/19 16:07 Creatine Kinase 97 Units/L (39-308) 10/23/19 04:36 CK-MB (CK-2) < 1.0 ng/mL (0-4.0) 10/23/19 04:36 CK/CKMB % Calc 1.0 % (<4) 10/23/19 04:36 Troponin I < 0.02 ng/mL (0-1.5) 10/23/19 04:36 C-Reactive Protein 10.10 mg/L (0-3.0) H 10/25/19 05:13 B-Natriuretic Peptide 40.9 pg/mL (0-79) 10/22/19 16:07 Total Protein 6.5 g/dL (6.4-8.2) 10/25/19 05:13 Albumin 2.4 g/dL (3.4-5.0) L 10/25/19 05:13 Globulin 4.1 g/dL (2.5-4.5) 10/25/19 05:13 Albumin/Globulin Ratio 0.6 Ratio (1.1-2.1) L 10/25/19 05:13 Specimen Type Clean catch urine 10/22/19 16:40 Urine Color Yellow (YELLOW) 10/22/19 16:40 Urine Appearance Slightly hazy (CLEAR) 10/22/19 16:40 Urine pH 5.0 (5.0 - 8.0) 10/22/19 16:40 Ur Specific [place] 1.020 (1.000-1.030) 10/22/19 16:40 Urine Protein 2+ (NEGATIVE) 10/22/19 16:40 Urine Glucose (UA) Negative (NEGATIVE) 10/22/19 16:40 Urine Ketones Negative (NEGATIVE) 10/22/19 16:40 Urine Occult Blood 1+ (NEGATIVE) 10/22/19 16:40 Urine Nitrite Negative (NEGATIVE) 10/22/19 16:40 Urine Bilirubin Negative (NEGATIVE) 10/22/19 16:40 Urine Urobilinogen Normal (NORMAL) 10/22/19 16:40 Ur Leukocyte Esterase 1+ (NEGATIVE) 10/22/19 16:40 Urine RBC 3-5 /HPF (0-3) A 10/22/19 16:40 Urine WBC 5-10 /HPF (0-5) A 10/22/19 16:40 Ur Squamous Epith Cells Few /HPF (NEGATIVE) 10/22/19 16:40 Urine Bacteria 1+ /HPF (NEGATIVE) 10/22/19 16:40 Urine Mucus Moderate /HPF (NEGATIVE) 10/22/19 16:40 Ur Culture Indicated? Yes/culture set up 10/22/19 16:40 Stool Description 65g,brown,unformed 10/23/19 19:27 Stool Description 65g,brown,unformed 10/23/19 19:27 Stl Occult Blood (IFOB) Negative (NEGATIVE) 10/23/19 19:27 Stool for White Cells Negative (NEGATIVE) 10/23/19 19:27 Stl C. diff Tox B Gene Negative (NEGATIVE) 10/23/19 19:27 Stl C. diff [id number] Negative (NEGATIVE) 10/23/19 19:27 Stool H. pylori Ag Negative (NEGATIVE) 10/23/19 19:27 Cryptosporid parvum Ag Negative (NEGATIVE) 10/23/19 19:27 Giardia lamblia Ag Negative (NEGATIVE) 10/23/19 19:27 - Plan (1) COVID-19 Status: Acute Plan: NORMAL SALINE AT 75 ML/HR, LEVAQUIN 500MG IV DAILY, REMDESIVIR 100MG IV DAILY, SOLU-MEDROL 40MG IV Q8H, HUMULIN R SLIDING SCLAE, LOVENOX 40MG SC DAILY, VENTOLIN INHALER 2 PUFFS Q4H PRN, AND THE POTASSIUM AND MAGNESIUM PROTOCOLS (2) UTI (urinary tract infection) Status: Acute Qualifiers: Urinary tract infection type: acute cystitis Hematuria presence: without hematuria Qualified Code(s): N30.00 - Acute cystitis without hematuria (3) Lactic acidemia Status: Acute (4) Shortness of breath Status: Acute (5) Fever Status: Acute Qualifiers: Fever type: unspecified Qualified Code(s): R50.9 - Fever, unspecified (6) Generalized weakness Status: Acute (7) COPD (chronic obstructive pulmonary disease) Status: Chronic Qualifiers: COPD type: unspecified COPD Qualified Code(s): J44.9 - Chronic obstructive pulmonary disease, unspecified (8) Diabetes mellitus, type 2 Status: Chronic Qualifiers: Diabetes mellitus [place] insulin use: with fci use Diabetes lashon litus complication status: without complication Qualified Code(s): E11.9 - Type 2 diabetes mellitus without complications; Z79.4 - supervisor intermediates (current) use of insulin (9) History of [place] (myocardial infarction) Status: Chronic (10) Hyperlipidemia Status: Chronic Qualifiers: Hyperlipidemia type: mixed hyperlipidemia (11) Hypertension Status: Chronic Qualifiers: Hypertension type: essential hypertension Qualified Code(s): I10 - Essential (primary) hypertension
[2019-10-25] MEDS: TOPROL XL PO SCH (08:30)
[2019-10-25] MEDS: PriLOSEC PO SCH (08:30)
[2019-10-25] MEDS: PLAVIX PO SCH (08:33)
[2019-10-25] MEDS: ZESTRIL TAB 10 MG PO SCH ×2 (08:33→21:20)
[2019-10-25] MEDS: ASPIRIN EC 81 MG PO SCH (08:33)
[2019-10-25] MEDS ORDERED: PLAVIX PO SCH (09:00)
[2019-10-25] MEDS: REMDESIVIR (INVESTIGATIONAL DRUG GS-5734) 100 MG in NS 250 ML IV 250 ML IV SCH (09:46)
[2019-10-25] MEDS: PULMICORT NEB TX 0.5 MG NEB SCH ×2 (10:19→21:15)
[2019-10-25] MEDS: DUONEB 0.5 MG/3 MG (3 mL) NEB SCH ×4 (12:20→21:15)
[2019-10-25] MEDS ORDERED: TYLENOL 325 MG TAB PO ONE (16:26)
[2019-10-25] MEDS ORDERED: MILK OF MAGNESIA ONE (16:27)
[2019-10-25] MEDS: TYLENOL 325 MG TAB PO PRN (16:28)
[2019-10-25] MEDS: MILK OF MAGNESIA PO SCH ×2 (16:28→20:14)
[2019-10-25] MEDS: SNACK - Diabetic Appropriate PO SCH (20:11)
[2019-10-25] MEDS ORDERED: NEURONTIN CAP 300 MG PO SCH (21:00)
[2019-10-25] MEDS: LOVENOX INJ 40 MG SYR SC SCH (21:20)
[2019-10-25] MEDS: LIPITOR TAB 40 MG PO SCH (21:20)
[2019-10-25] MEDS: NEURONTIN CAP 300 MG PO SCH (21:20)
[2019-10-25] MEDS: COLACE CAP 100 MG PO SCH (21:20)
--- NOTE | 2019-10-25 23:02 | PCM.PROG ---
Progress Note - Progress Note for Day of Date of Exam: 10/25/19 - Subjective Subjective: IS BEING TREATED FOR COVID-19, PNEUMONIA, HYPOXIA, AND SHORTNESS OF BREATH. TODAY, HE IS ALERT AND OREINTED, LYING IN BED ON MORNING ROUNDS. HE CONTINUES WITH A NON-PRODUCTIVE COUGH, SHORTNESS OF BREATH, WEAKNESS. ON EXAMINATION, HEART IS REGULAR IN RATE AND RHYTHM. BILATERAL LUNGS ARE NOTED WITH SCATTERED WHEEZING THROUGHOUT. ABDOMEN IS ROUND, SOFT, AND NON-TENDER WITH NORMAL BOWEL SOUNDS NOTED IN ALL QUADRANTS. HER VITALS THIS MORNING ARE: 98.5-97-16-96%-163/79. LABS WERE OBTAINED. ABNORMAL LAB VALUES INCLUDE THE FOLLOWING: RBC 3.43, HGB 11.5, HCT 33.9, GLUCOSE 215, CALCIUM 8.2, FERRITIN 953, AST 46. BLOOD, URINE, AND STOOL CULTURES ARE PENDING. A CHEST XRAY WAS OBTAINED AND REVEALED: Improved aeration of the right lung. Continued follow-up suggested to document complete resolution of right midlung pulmonary density. HE IS CURRENTLY RECEIVING: NORMAL SALINE AT 75 ML/HR, LEVAQUIN 500MG IV DAILY, REMDESIVIR 100MG IV DAILY, SOLU-MEDROL 40MG IV Q8H, LOVENOX 40MG SC DAILY, HUMULIN R SLIDIDNG SCALE, VENTOLIN INHALER 2 PUFFS Q4H PRN, AND THE POTASSIUM AND MAGNESIUM PROTOCOLS. WE WILL DISCONTINUE PRO AIR INHALER AND START DUONEBS TID AND PULMICORT BID. OTHERWISE, WE WILL FOLLOW UP WITH AM LABS AND CHEST XRAY AND CONTINUE TO MONITOR. - Past Medical Family Social History Past Med/Fam/Surg Hx: No changes since H&P Allergies: Allergies No Known Drug Allergies Allergy (Verified 10/22/19 14:59) - Review of Systems ROS: No change since H&P - Vital Signs and I&O's Vital Signs: Temperature 97.8 F Pulse Rate [Left] 78 Pulse Rate 65 Respiratory Rate 20 Blood Pressure [Left Arm] 127/68 Blood Pressure [Right Arm] 121/59 Blood Pressure 144/74 O2 Sat by Pulse Oximetry 100 Intake and Output: Intake & Output 10/23/19 10/24/19 10/25/19 10/26/19 11:59 11:59 11:59 11:59 Intake Total 1969 / 1969 3394 / 3394 4266 / 4266 1125 / 1125 Output Total 800 / 800 500 / 500 600 / 600 Balance 1170 / 1170 2894 / 2894 3666 / 3666 112 / 1125 - Physical Exam Oriented: Normal Eyes: Normal Ear: Normal Nose: Normal Throat: Normal Respiratory: Generalized, Wheezes Cardiovascular: Normal. negative: S3, S4, Murmur : Normal Auscultation: Bowel Sounds: Normal Palpation: Normal Tenderness: Normal Skin: Normal Musculoskeletal: Normal Psychiatric: Normal Mood Description: Calm Affect: Normal Speech Pattern: Clear, Appropriate - Laboratory and Diagnostics Result Diagrams: 10/25/19 05:13 10/25/19 05:13 Labs: 10/23/19 19:27 Stool Stool Culture - Final 10/23/19 19:27 Stool - Final 10/22/19 16:10 Blood Blood Culture - Preliminary 10/22/19 16:07 Blood Blood Culture - Preliminary 10/22/19 16:40 Urine,Clean Catch Urine Culture - Final Laboratory WBC 7.1 X10^3/uL (3.6-10.0) 10/25/19 05:13 RBC 3.43 X10^6/uL (4.7-6.0) L 10/25/19 05:13 Hgb 11.5 g/dL (13.5-18.0) L 10/25/19 05:13 Hct 33.9 % (42.0-54.0) L 10/25/19 05:13 MCV 98.7 fL (80.0-100.0) 10/25/19 05:13 MCH 33.4 pg (27.0-34.0) 10/25/19 05:13 MCHC 33.8 g/dL (33.0-35.0) 10/25/19 05:13 RDW 13.8 % (11.6-16.5) 10/25/19 05:13 Plt Count 172 X10^3/uL (150.0-450.0) 10/25/19 05:13 Plt Count Comment Adequate (ADEQUATE) 10/24/19 04:37 MPV 9.4 fL (7.4-11.0) 10/25/19 05:13 Neut % (Auto) 86.1 % (42.0-75.0) H 10/25/19 05:13 Lymph % (Auto) 7.2 % (21.0-51.0) L 10/25/19 05:13 [place] % (Auto) 6.7 % (0.0-13.0) 10/25/19 05:13 Eos % (Auto) 0.0 % (0.9-2.9) L 10/25/19 05:13 Baso % (Auto) 0 % (0.2-1.0) L 10/25/19 05:13 Neut # (Auto) 6.1 x10^3/uL (2.2-4.8) H 10/25/19 05:13 Lymph # (Auto) 0.5 X10^3/uL (1.3-2.9) L 10/25/19 05:13 [place] # (Auto) 0.5 x10^3/uL (0.3-0.8) 10/25/19 05:13 Eos # (Auto) 0.0 x10^3/uL (0.0-0.2) 10/25/19 05:13 Baso # (Auto) 0.0 X10^3/uL (0.0-0.1) 10/25/19 05:13 Absolute Nucleated RBC 0.1 /100WBC 10/25/19 05:13 Total Counted 100 10/24/19 04:37 Neutrophils % (Manual) 69 % (39-76) 10/24/19 04:37 Lymphocytes % (Manual) 28 % (13-43) 10/24/19 04:37 Monocytes % (Manual) 3 % (4-9) L 10/24/19 04:37 Plt Morphology Comment Normal (NORMAL) 10/24/19 04:37 RBC Morphology Normal (NORMAL) 10/24/19 04:37 PT 14.3 SECONDS (11.8-14.3) 10/23/19 04:36 INR Target Range - 10/23/19 04:36 INR 1.14 (0.8-1.3) 10/23/19 04:36 APTT 42.7 SECONDS (22.9-36.5) H 10/23/19 04:36 PTT Comment - 10/23/19 04:36 Sample Site Lb 10/23/19 04:55 ABG pH 7.510 (7.35-7.45) H 10/23/19 04:55 ABG pCO2 27.0 mmHg (35.0-45.0) L 10/23/19 04:55 ABG pO2 81.0 mmHg (80.0-100.0) 10/23/19 04:55 ABG HCO3 21.5 mmol/L (22-26) L 10/23/19 04:55 ABG O2 Saturation 97.0 % (90-100) 10/23/19 04:55 ABG Base Excess -0.4 mmol/L (-2.0-2.0) 10/23/19 04:55 Carlos Test N/a 10/23/19 04:55 A-a Gradient 85.0 mmHg 10/23/19 04:55 FiO2 28.0 10/23/19 04:55 Blood Gas Comments [place]ascual well ae 10/23/19 04:55 Sodium 138 mmol/L (136-145) 10/25/19 05:13 Corrected Sodium 141 mmol/L (136-145) 10/25/19 05:13 Potassium 4.5 mmol/L (3.5-5.1) 10/25/19 05:13 Chloride 106 mmol/L (98-107) 10/25/19 05:13 Carbon Dioxide 24.6 mmol/L (21-32) 10/25/19 05:13 BUN 18 mg/dL (7-18) 10/25/19 05:13 Creatinine 1.15 mg/dL (0.70-1.30) 10/25/19 05:13 Est GFR (MDRD) Af Amer > 60 (>60) 10/25/19 05:13 Est GFR (MDRD) Non-Af > 60 (>60) 10/25/19 05:13 Glucose 215 mg/dL (65-99) H 10/25/19 05:13 Lactic Acid 2.8 mmol/L (0.4-2.0) H 10/22/19 16:07 Calcium 8.2 mg/dL (8.5-10.1) L 10/25/19 05:13 Corrected Calcium 9.5 mg/dL (8.5-10.1) 10/25/19 05:13 Magnesium 2.1 mg/dL (1.7-2.9) 10/24/19 04:37 Ferritin 953 ng/mL (26-388) H 10/25/19 05:13 Total Bilirubin 0.20 mg/dL (0.2-1.0) 10/25/19 05:13 AST 46 Units/L (15-37) H 10/25/19 05:13 ALT 45 Units/L (12-78) 10/25/19 05:13 Alkaline Phosphatase 60 Units/L (46-116) 10/25/19 05:13 Lactate Dehydrogenase 189 Units/L (85-227) 10/22/19 16:07 Creatine Kinase 97 Units/L (39-308) 10/23/19 04:36 CK-MB (CK-2) < 1.0 ng/mL (0-4.0) 10/23/19 04:36 CK/CKMB % Calc 1.0 % (<4) 10/23/19 04:36 Troponin I < 0.02 ng/mL (0-1.5) 10/23/19 04:36 C-Reactive Protein 10.10 mg/L (0-3.0) H 10/25/19 05:13 B-Natriuretic Peptide 40.9 pg/mL (0-79) 10/22/19 16:07 Total Protein 6.5 g/dL (6.4-8.2) 10/25/19 05:13 Albumin 2.4 g/dL (3.4-5.0) L 10/25/19 05:13 Globulin 4.1 g/dL (2.5-4.5) 10/25/19 05:13 Albumin/Globulin Ratio 0.6 Ratio (1.1-2.1) L 10/25/19 05:13 Specimen Type Clean catch urine 10/22/19 16:40 Urine Color Yellow (YELLOW) 10/22/19 16:40 Urine Appearance Slightly hazy (CLEAR) 10/22/19 16:40 Urine pH 5.0 (5.0 - 8.0) 10/22/19 16:40 Ur Specific [place] 1.020 (1.000-1.030) 10/22/19 16:40 Urine Protein 2+ (NEGATIVE) 10/22/19 16:40 Urine Glucose (UA) Negative (NEGATIVE) 10/22/19 16:40 Urine Ketones Negative (NEGATIVE) 10/22/19 16:40 Urine Occult Blood 1+ (NEGATIVE) 10/22/19 16:40 Urine Nitrite Negative (NEGATIVE) 10/22/19 16:40 Urine Bilirubin Negative (NEGATIVE) 10/22/19 16:40 Urine Urobilinogen Normal (NORMAL) 10/22/19 16:40 Ur Leukocyte Esterase 1+ (NEGATIVE) 10/22/19 16:40 Urine RBC 3-5 /HPF (0-3) A 10/22/19 16:40 Urine WBC 5-10 /HPF (0-5) A 10/22/19 16:40 Ur Squamous Epith Cells Few /HPF (NEGATIVE) 10/22/19 16:40 Urine Bacteria 1+ /HPF (NEGATIVE) 10/22/19 16:40 Urine Mucus Moderate /HPF (NEGATIVE) 10/22/19 16:40 Ur Culture Indicated? Yes/culture set up 10/22/19 16:40 Stool Description 65g,brown,unformed 10/23/19 19:27 Stool Description 65g,brown,unformed 10/23/19 19:27 Stl Occult Blood (IFOB) Negative (NEGATIVE) 10/23/19 19:27 Stool for White Cells Negative (NEGATIVE) 10/23/19 19:27 Stl C. diff Tox B Gene Negative (NEGATIVE) 10/23/19 19:27 Stl C. diff [id number] Negative (NEGATIVE) 10/23/19 19:27 Stool H. pylori Ag Negative (NEGATIVE) 10/23/19 19:27 Cryptosporid parvum Ag Negative (NEGATIVE) 10/23/19 19:27 Giardia lamblia Ag Negative (NEGATIVE) 10/23/19 19:27 - Plan (1) COVID-19 Status: Acute Plan: NORMAL SALINE AT 75 ML/HR, LEVAQUIN 500MG IV DAILY, REMDESIVIR 100MG IV DAILY, SOLU-MEDROL 40MG IV Q8H, HUMULIN R SLIDING SCLAE, LOVENOX 40MG SC DAILY, DUONEBS TID AND PULMICORT BID, AND THE POTASSIUM AND MAGNESIUM PROTOCOLS (2) UTI (urinary tract infection) Status: Acute Qualifiers: Urinary tract infection type: acute cystitis Hematuria presence: without hematuria Qualified Code(s): N30.00 - Acute cystitis without hematuria (3) Lactic acidemia Status: Acute (4) Shortness of breath Status: Acute (5) Fever Status: Acute Qualifiers: Fever type: unspecified Qualified Code(s): R50.9 - Fever, unspecified (6) Generalized weakness Status: Acute (7) COPD (chronic obstructive pulmonary disease) Status: Chronic Qualifiers: COPD type: unspecified COPD Qualified Code(s): J44.9 - Chronic obstructive pulmonary disease, unspecified (8) Diabetes mellitus, type 2 Status: Chronic Qualifiers: Diabetes mellitus fpc insulin use: with fpc use Diabetes mellitus complication status: without complication Qualified Code(s): E11.9 - Type 2 diabetes mellitus without complications; Z79.4 - prison (current) use of insulin (9) History of [place] (myocardial infarction) Status: Chronic (10) Hyperlipidemia Status: Chronic Qualifiers: Hyperlipidemia type: mixed hyperlipidemia (11) Hypertension Status: Chronic Qualifiers: Hypertension type: essential hypertension Qualified Code(s): I10 - Essential (primary) hypertension
[2019-10-26] MEDS: NS 1000 ML 1,000 ML IV SCH ×3 (00:57→18:24)
[2019-10-26] MEDS: SOLU-Medrol 40 MG VIAL IVP SCH (05:10)
[2019-10-26 05:19] LABS: BASOPHILS % (AUTO) 0.1 % (0.2-1.0); HEMATOCRIT 37.3 % (42.0-54.0); HEMOGLOBIN 12.4 g/dL (13.5-18.0); LYMPHOCYTES # (AUTO) 0.7 X10^3/uL (1.3-2.9); LYMPHOCYTES % (AUTO) 7.8 % (21.0-51.0); MEAN CORPUSCULAR HEMOGLOBIN 33.2 pg (27.0-34.0); MEAN CORPUSCULAR HGB CONC 33.4 g/dL (33.0-35.0); MEAN CORPUSCULAR VOLUME 99.5 fL (80.0-100.0); MEAN PLATELET VOLUME 9.6 fL (7.4-11.0); MONOCYTES # (AUTO) 0.9 x10^3/uL (0.3-0.8); MONOCYTES % (AUTO) 9.8 % (0.0-13.0); NEUTROPHILS # (AUTO) 7.7 x10^3/uL (2.2-4.8); NEUTROPHILS % (AUTO) 82.3 % (42.0-75.0); PLATELET COUNT 240 X10^3/uL (150.0-450.0); RED BLOOD COUNT 3.74 X10^6/uL (4.7-6.0); RED CELL DISTRIBUTION WIDTH 13.8 % (11.6-16.5); WHITE BLOOD COUNT 9.3 X10^3/uL (3.6-10.0)
[2019-10-26 05:37] LABS: ALANINE AMINOTRANSFERASE 107 Units/L (12-78); ALBUMIN 2.7 g/dL (3.4-5.0); ALKALINE PHOSPHATASE 68 Units/L (46-116); ASPARTATE AMINO TRANSFERASE 78 Units/L (15-37); BLOOD UREA NITROGEN 21 mg/dL (7-18); CALCIUM 8.1 mg/dL (8.5-10.1); CARBON DIOXIDE 23.5 mmol/L (21-32); CHLORIDE 105 mmol/L (98-107); COR CA(FOR HYPOALB) 9.1 mg/dL (8.5-10.1); COR NA(FOR HYPERGLY) 144 mmol/L (136-145); CREATININE 1.22 mg/dL (0.70-1.30); SODIUM 140 mmol/L (136-145); TOTAL PROTEIN 6.9 g/dL (6.4-8.2); eGFR NON BLACK RACES > 60 (>60)
[2019-10-26] MEDS: HumuLIN R SUBCUT PRN ×4 (05:48→21:33)
--- NOTE | 2019-10-26 05:57 | RAD ---
Chest AP portableIndication: DyspneaComparison October 25, 2019FINDINGSThere is cardiomegaly. There is no pneumothorax. Monitor leads obscure minimal detail. Patchy peripheral pulmonary opacities are noted.IMPRESSION: Cardiomegaly and patchy pulmonary opacities, continuing to worsen. These are somewhat peripheral. While bacterial pneumonia is possible, correlate clinically to exclude viral pneumonitis such as singh virus infection.Electronically signed by: YOSEF VARGHESE (Oct 26, 2019 05:56:29)
[2019-10-26] MEDS: DUONEB 0.5 MG/3 MG (3 mL) NEB SCH ×3 (06:17→20:39)
[2019-10-26] MEDS: PLAVIX PO SCH (09:00)
[2019-10-26] MEDS: ZESTRIL TAB 10 MG PO SCH ×2 (09:00→21:27)
[2019-10-26] MEDS: ASPIRIN EC 81 MG PO SCH (09:00)
[2019-10-26] MEDS: LEVAQUIN PREMIX IV 500 MG 500 MG/100 ML BAG IV SCH (09:00)
[2019-10-26] MEDS: PriLOSEC PO SCH (09:00)
[2019-10-26] MEDS: TOPROL XL PO SCH (09:00)
[2019-10-26] MEDS: PULMICORT NEB TX 0.5 MG NEB SCH ×2 (10:20→20:39)
[2019-10-26] MEDS ORDERED: NS 250 ML IV 250 ML IV ONE (10:31)
[2019-10-26 10:34] LABS: ABG ALLEN TEST POS; ABG BASE EXCESS -2.2 mmol/L (-2.0-2.0); ABG HCO3 20.6 mmol/L (22-26)
[2019-10-26] MEDS: REMDESIVIR (INVESTIGATIONAL DRUG GS-5734) 100 MG in NS 250 ML IV 250 ML IV SCH (10:35)
[2019-10-26] MEDS: TYLENOL 325 MG TAB PO PRN (18:12)
[2019-10-26] MEDS: SNACK - Diabetic Appropriate PO SCH (20:21)
[2019-10-26] MEDS: LOVENOX INJ 40 MG SYR SC SCH (21:20)
[2019-10-26] MEDS: COLACE CAP 100 MG PO SCH (21:25)
[2019-10-26] MEDS: MILK OF MAGNESIA PO SCH (21:26)
[2019-10-26] MEDS: LIPITOR TAB 40 MG PO SCH (21:26)
[2019-10-26] MEDS: NEURONTIN CAP 300 MG PO SCH (21:27)
[2019-10-27] MEDS: NS 1000 ML 1,000 ML IV SCH (04:45)
[2019-10-27] MEDS: DUONEB 0.5 MG/3 MG (3 mL) NEB SCH ×2 (05:40)
[2019-10-27 06:02] LABS: ALANINE AMINOTRANSFERASE 114 Units/L (12-78); ALBUMIN 2.3 g/dL (3.4-5.0); ALKALINE PHOSPHATASE 56 Units/L (46-116); ASPARTATE AMINO TRANSFERASE 66 Units/L (15-37); BLOOD UREA NITROGEN 16 mg/dL (7-18); CALCIUM 7.7 mg/dL (8.5-10.1); CARBON DIOXIDE 23.2 mmol/L (21-32); CHLORIDE 107 mmol/L (98-107); COR CA(FOR HYPOALB) 9.1 mg/dL (8.5-10.1); COR NA(FOR HYPERGLY) 142 mmol/L (136-145); CREATININE 0.98 mg/dL (0.70-1.30); SODIUM 140 mmol/L (136-145); TOTAL PROTEIN 5.7 g/dL (6.4-8.2); eGFR NON BLACK RACES > 60 (>60)
[2019-10-27 06:04] LABS: BASOPHILS % (AUTO) 0.1 % (0.2-1.0); EOSINOPHILS % (AUTO) 0.2 % (0.9-2.9); HEMATOCRIT 31.7 % (42.0-54.0); LYMPHOCYTES # (AUTO) 1.1 X10^3/uL (1.3-2.9); LYMPHOCYTES % (AUTO) 18.4 % (21.0-51.0); MEAN CORPUSCULAR HEMOGLOBIN 33.9 pg (27.0-34.0); MEAN CORPUSCULAR HGB CONC 34.7 g/dL (33.0-35.0); MEAN CORPUSCULAR VOLUME 97.7 fL (80.0-100.0); MEAN PLATELET VOLUME 9.2 fL (7.4-11.0); MONOCYTES # (AUTO) 0.6 x10^3/uL (0.3-0.8); MONOCYTES % (AUTO) 9.3 % (0.0-13.0); NEUTROPHILS # (AUTO) 4.3 x10^3/uL (2.2-4.8); PLATELET COUNT 193 X10^3/uL (150.0-450.0); RED BLOOD COUNT 3.25 X10^6/uL (4.7-6.0); RED CELL DISTRIBUTION WIDTH 13.6 % (11.6-16.5); WHITE BLOOD COUNT 5.9 X10^3/uL (3.6-10.0)
--- NOTE | 2019-10-27 06:36 | RAD ---
HISTORYSOBSTUDYAP [id number] stable cardiac enlargement. Ill-defined peripheral pulmonary densities are present, essentially unchanged considering technical differences. No new segmental or lobar consolidation, edema or pleural fluid.IMPRESSIONUnchanged chest. Mild bilateral peripheral pulmonary densities consistent with residual pneumonia.Electronically signed by: ISABELLA FENG (Oct 27, 2019 06:35:40)
[2019-10-27] MEDS: ASPIRIN EC 81 MG PO SCH (08:19)
[2019-10-27] MEDS: ZESTRIL TAB 10 MG PO SCH (08:20)
[2019-10-27] MEDS: REMDESIVIR (INVESTIGATIONAL DRUG GS-5734) 100 MG in NS 250 ML IV 250 ML IV SCH (08:20)
[2019-10-27] MEDS: LEVAQUIN PREMIX IV 500 MG 500 MG/100 ML BAG IV SCH (08:20)
[2019-10-27] MEDS: TOPROL XL PO SCH (08:20)
[2019-10-27] MEDS: PriLOSEC PO SCH (08:21)
[2019-10-27] MEDS: PLAVIX PO SCH (08:21)
[2019-10-27] MEDS: PULMICORT NEB TX 0.5 MG NEB SCH (09:33)
--- NOTE | 2019-10-27 11:20 | PCM.PROG ---
Progress Note - Progress Note for Day of Date of Exam: 10/26/19 - Subjective Subjective: IS BEING TREATED FOR COVID-19, PNEUMONIA, HYPOXIA, AND SHORTNESS OF BREATH. TODAY, HE IS ALERT AND OREINTED, LYING IN BED ON MORNING ROUNDS. HE CONTINUES WITH A NON-PRODUCTIVE COUGH, SHORTNESS OF BREATH, WEAKNESS, BUT REPORTS SLIGHT IMPROVEMENT IN SYMPTOMS SINCE YESTERDAY. ON EXAMINATION, HEART IS REGULAR IN RATE AND RHYTHM. BILATERAL LUNGS ARE NOTED WITH SCATTERED WHEEZING THROUGHOUT. ABDOMEN IS ROUND, SOFT, AND NON-TENDER WITH NORMAL BOWEL SOUNDS NOTED IN ALL QUADRANTS. HER VITALS THIS MORNING ARE: 98.1-66-22-98%-169/86. LABS WERE OBTAINED. ABNORMAL LAB VALUES INCLUDE THE FOL LOWING: RBC 3.74, HGB 12.4, HCT 37.3, BUN 21, GLUCOSE 263, CALCIUM 8.1, FERRITIN 1473, AST 78, ALT 107, CRP 5.70, ALBUMIN 2.7. BLOOD, URINE, AND STOOL CULTURES ARE PENDING. A CHEST XRAY WAS OBTAINED AND REVEALED: Cardiomegaly and patchy pulmonary opacities, continuing to worsen. These are somewhat peripheral. While bacterial pneumonia is possible, correlate clinically to exclude viral pneumonitis such as singh virus infection. HE IS CURRENTLY RECEIVING: NORMAL SALINE AT 75 ML/HR, LEVAQUIN 500MG IV DAILY, REMDESIVIR 100MG IV DAILY, SOLU- MEDROL 40MG IV Q8H, LOVENOX 40MG SC DAILY, HUMULIN R SLIDIDNG SCALE, START DUONEBS TID AND PULMICORT BID, AND THE POTASSIUM AND MAGNESIUM PROTOCOLS. OTHERWISE, WE WILL FOLLOW UP WITH AM LABS AND CHEST XRAY AND CONTINUE TO MONITOR. - Past Medical Family Social History Past Med/Fam/Surg Hx: No changes since H&P Allergies: Allergies No Known Drug Allergies Allergy (Verified 10/22/19 14:59) - Review of Systems ROS: No change since H&P - Vital Signs and I&O's Vital Signs: Temperature 98.1 F Pulse Rate [Left] 78 Pulse Rate 80 Respiratory Rate 22 Blood Pressure [Left Arm] 127/68 Blood Pressure [Right Arm] 121/59 Blood Pressure 169/86 O2 Sat by Pulse Oximetry 99 Intake and Output: Intake & Output 10/24/19 10/25/19 10/26/19 10/27/19 11:59 11:59 11:59 11:59 Intake Total 3394 / 3394 4266 / 4266 3434 / 3434 3461 / 3461 Output Total 500 / 500 600 / 600 Balance 2894 / 2894 3666 / 3666 3434 / 3434 3461 / 3461 - Physical Exam Oriented: Normal Eyes: Normal Ear: Normal Nose: Normal Throat: Normal Respiratory: Generalized, Wheezes Cardiovascular: Normal. negative: S3, S4, Murmur : Normal Auscultation: Bowel Sounds: Normal Tenderness: Normal Skin: Normal Musculoskeletal: Normal Psychiatric: Normal Mood Description: Calm Affect: Normal Speech Pattern: Clear, Appropriate - Laboratory and Diagnostics Result Diagrams: 10/27/19 05:00 10/27/19 10:23 Labs: 10/23/19 19:27 Stool Stool Culture - Final 10/23/19 19:27 Stool - Final 10/22/19 16:10 Blood Blood Culture - Preliminary 10/22/19 16:07 Blood Blood Culture - Preliminary 10/22/19 16:40 Urine,Clean Catch Urine Culture - Final Laboratory WBC 5.9 X10^3/uL (3.6-10.0) 10/27/19 05:00 RBC 3.25 X10^6/uL (4.7-6.0) L 10/27/19 05:00 Hgb 11.0 g/dL (13.5-18.0) L 10/27/19 05:00 Hct 31.7 % (42.0-54.0) L 10/27/19 05:00 MCV 97.7 fL (80.0-100.0) 10/27/19 05:00 MCH 33.9 pg (27.0-34.0) 10/27/19 05:00 MCHC 34.7 g/dL (33.0-35.0) 10/27/19 05:00 RDW 13.6 % (11.6-16.5) 10/27/19 05:00 Plt Count 193 X10^3/uL (150.0-450.0) 10/27/19 05:00 Plt Count Comment Adequate (ADEQUATE) 10/24/19 04:37 MPV 9.2 fL (7.4-11.0) 10/27/19 05:00 Neut % (Auto) 72.0 % (42.0-75.0) 10/27/19 05:00 Lymph % (Auto) 18.4 % (21.0-51.0) L 10/27/19 05:00 [place] % (Auto) 9.3 % (0.0-13.0) 10/27/19 05:00 Eos % (Auto) 0.2 % (0.9-2.9) L 10/27/19 05:00 Baso % (Auto) 0.1 % (0.2-1.0) L 10/27/19 05:00 Neut # (Auto) 4.3 x10^3/uL (2.2-4.8) 10/27/19 05:00 Lymph # (Auto) 1.1 X10^3/uL (1.3-2.9) L 10/27/19 05:00 [place] # (Auto) 0.6 x10^3/uL (0.3-0.8) 10/27/19 05:00 Eos # (Auto) 0.0 x10^3/uL (0.0-0.2) 10/27/19 05:00 Baso # (Auto) 0.0 X10^3/uL (0.0-0.1) 10/27/19 05:00 Absolute Nucleated RBC 0.0 /100WBC 10/27/19 05:00 Total Counted 100 10/24/19 04:37 Neutrophils % (Manual) 69 % (39-76) 10/24/19 04:37 Lymphocytes % (Manual) 28 % (13-43) 10/24/19 04:37 Monocytes % (Manual) 3 % (4-9) L 10/24/19 04:37 Plt Morphology Comment Normal (NORMAL) 10/24/19 04:37 RBC Morphology Normal (NORMAL) 10/24/19 04:37 PT 14.3 SECONDS (11.8-14.3) 10/23/19 04:36 INR Target Range - 10/23/19 04:36 INR 1.14 (0.8-1.3) 10/23/19 04:36 APTT 42.7 SECONDS (22.9-36.5) H 10/23/19 04:36 PTT Comment - 10/23/19 04:36 Sample Site Left radial 10/26/19 10:25 ABG pH 7.460 (7.35-7.45) H 10/26/19 10:25 ABG pCO2 29.0 mmHg (35.0-45.0) L 10/26/19 10:25 ABG pO2 73.0 mmHg (80.0-100.0) L 10/26/19 10:25 ABG HCO3 20.6 mmol/L (22-26) L 10/26/19 10:25 ABG O2 Saturation 95.0 % (90-100) 10/26/19 10:25 ABG Base Excess -2.2 mmol/L (-2.0-2.0) L 10/26/19 10:25 Carlos Test Pos 10/26/19 10:25 A-a Gradient 40.0 mmHg 10/26/19 10:25 FiO2 21.0 10/26/19 10:25 Blood Gas Comments Pascual well aw 10/26/19 10:25 Sodium 140 mmol/L (136-145) 10/27/19 05:00 Corrected Sodium 142 mmol/L (136-145) 10/27/19 05:00 Potassium 3.4 mmol/L (3.5-5.1) L 10/27/19 10:23 Chloride 107 mmol/L (98-107) 10/27/19 05:00 Carbon Dioxide 23.2 mmol/L (21-32) 10/27/19 05:00 BUN 16 mg/dL (7-18) 10/27/19 05:00 Creatinine 0.98 mg/dL (0.70-1.30) 10/27/19 05:00 Est GFR (MDRD) Af Amer > 60 (>60) 10/27/19 05:00 Est GFR (MDRD) Non-Af > 60 (>60) 10/27/19 05:00 Glucose 172 mg/dL (65-99) H 10/27/19 05:00 Lactic Acid 2.8 mmol/L (0.4-2.0) H 10/22/19 16:07 Calcium 7.7 mg/dL (8.5-10.1) L 10/27/19 05:00 Corrected Calcium 9.1 mg/dL (8.5-10.1) 10/27/19 05:00 Magnesium 2.1 mg/dL (1.7-2.9) 10/24/19 04:37 Ferritin 1325 ng/mL (26-388) H 10/27/19 05:00 Total Bilirubin 0.30 mg/dL (0.2-1.0) 10/27/19 05:00 AST 66 Units/L (15-37) H 10/27/19 05:00 ALT 114 Units/L (12-78) H 10/27/19 05:00 Alkaline Phosphatase 56 Units/L (46-116) 10/27/19 05:00 Lactate Dehydrogenase 189 Units/L (85-227) 10/22/19 16:07 Creatine Kinase 97 Units/L (39-308) 10/23/19 04:36 CK-MB (CK-2) < 1.0 ng/mL (0-4.0) 10/23/19 04:36 CK/CKMB % Calc 1.0 % (<4) 10/23/19 04:36 Troponin I < 0.02 ng/mL (0-1.5) 10/23/19 04:36 C-Reactive Protein 2.10 mg/L (0-3.0) 10/27/19 05:00 B-Natriuretic Peptide 40.9 pg/mL (0-79) 10/22/19 16:07 Total Protein 5.7 g/dL (6.4-8.2) L 10/27/19 05:00 Albumin 2.3 g/dL (3.4-5.0) L 10/27/19 05:00 Globulin 3.4 g/dL (2.5-4.5) 10/27/19 05:00 Albumin/Globulin Ratio 0.7 Ratio (1.1-2.1) L 10/27/19 05:00 Specimen Type Clean catch urine 10/22/19 16:40 Urine Color Yellow (YELLOW) 10/22/19 16:40 Urine Appearance Slightly hazy (CLEAR) 10/22/19 16:40 Urine pH 5.0 (5.0 - 8.0) 10/22/19 16:40 Ur Specific [place] 1.020 (1.000-1.030) 10/22/19 16:40 Urine Protein 2+ (NEGATIVE) 10/22/19 16:40 Urine Glucose (UA) Negative (NEGATIVE) 10/22/19 16:40 Urine Ketones Negative (NEGATIVE) 10/22/19 16:40 Urine Occult Blood 1+ (NEGATIVE) 10/22/19 16:40 Urine Nitrite Negative (NEGATIVE) 10/22/19 16:40 Urine Bilirubin Negative (NEGATIVE) 10/22/19 16:40 Urine Urobilinogen Normal (NORMAL) 10/22/19 16:40 Ur Leukocyte Esterase 1+ (NEGATIVE) 10/22/19 16:40 Urine RBC 3-5 /HPF (0-3) A 10/22/19 16:40 Urine WBC 5-10 /HPF (0-5) A 10/22/19 16:40 Ur Squamous Epith Cells Few /HPF (NEGATIVE) 10/22/19 16:40 Urine Bacteria 1+ /HPF (NEGATIVE) 10/22/19 16:40 Urine Mucus Moderate /HPF (NEGATIVE) 10/22/19 16:40 Ur Culture Indicated? Yes/culture set up 10/22/19 16:40 Stool Description 65g,brown,unformed 10/23/19 19:27 Stool Description 65g,brown,unformed 10/23/19 19:27 Stl Occult Blood (IFOB) Negative (NEGATIVE) 10/23/19 19:27 Stool for White Cells Negative (NEGATIVE) 10/23/19 19:27 Stl C. diff Tox B Gene Negative (NEGATIVE) 10/23/19 19:27 Stl C. diff [id number] Negative (NEGATIVE) 10/23/19 19:27 Stool H. pylori Ag Negative (NEGATIVE) 10/23/19 19:27 Cryptosporid parvum Ag Negative (NEGATIVE) 10/23/19 19:27 Giardia lamblia Ag Negative (NEGATIVE) 10/23/19 19:27 - Plan (1) COVID-19 Status: Acute Plan: NORMAL SALINE AT 75 ML/HR, LEVAQUIN 500MG IV DAILY, REMDESIVIR 100MG IV DAILY, SOLU-MEDROL 40MG IV Q8H, HUMULIN R SLIDING SCLAE, LOVENOX 40MG SC DAILY, DUONEBS TID AND PULMICORT BID, AND THE POTASSIUM AND MAGNESIUM PROTOCOLS (2) UTI (urinary tract infection) Status: Acute Qualifiers: Urinary tract infection type: acute cystitis Hematuria presence: without hematuria Qualified Code(s): N30.00 - Acute cystitis without hematuria (3) Lactic acidemia Status: Acute (4) Shortness of breath Status: Acute (5) Fever Status: Acute Qualifiers: Fever type: unspecified Qualified Code(s): R50.9 - Fever, unspecified (6) Generalized weakness Status: Acute (7) COPD (chronic obstructive pulmonary disease) Status: Chronic Qualifiers: COPD type: unspecified COPD Qualified Code(s): J44.9 - Chronic obstructive pulmonary disease, unspecified (8) Diabetes mellitus, type 2 Status: Chronic Qualifiers: Diabetes mellitus exterminator helper insulin use: with group home use Diabetes mellitus complication status: without complication Qualified Code(s): E11.9 - Type 2 diabetes mellitus without complications; Z79.4 - care home (current) use of insulin (9) History of NV (myocardial infarction) Status: Chronic (10) Hyperlipidemia Status: Chronic Qualifiers: Hyperlipidemia type: mixed hyperlipidemia (11) Hypertension Status: Chronic Qualifiers: Hypertension type: essential hypertension Qualified Code(s): I10 - Essen tial (primary) hypertension
[2019-10-27 12:30] VITALS: BP 130/72
== END 2019-10-27 13:40 | disposition home or self-care (01) | DRG 177 ==
LOC: ER 14:58 → ICU 14:58
PROVIDERS: ADMIT Obstetrics & Gynecology Obstetrics; ATTEND Internal Medicine
DX: E87.6 Hypokalemia; U07.1 COVID-19; E11.65 Type 2 diabetes mellitus with hyperglycemia; Z79.4 Long term (current) use of insulin; R50.9 Fever, unspecified; E87.2 Acidosis; R53.1 Weakness; J44.9 Chronic obstructive pulmonary disease, unspecified; E78.2 Mixed hyperlipidemia; I10 Essential (primary) hypertension; N30.00 Acute cystitis without hematuria; I25.2 Old myocardial infarction; J18.8 Other pneumonia, unspecified organism
CPT/HCPCS: 36415; 36600; 71010; 71045; 80053; 81001; 82270; 82550; 82553; 82728; 82803; 83605; 83615; 83630; 83735; 83880; 84132; 84484; 85025; 85610; 85730; 86140; 87040; 87045; 87086; 87328; 87329; 87338; 87427; 87449; 87493; 87899; 93005; 94640; 94760; 96365; 96367; 96374; 96375; 97110; 97161; 97166; 97530; 97535; 99284; A4222; G0378; J0696; J1650; J1815; J1885; J1956; J2405; J2920; J3411; J3475; J3490; J7030; J7050; J7620; J7626

== ENCOUNTER 2021-07-15 11:33 | Observation (INO) ==
--- NOTE | 2021-07-15 11:42 | DR.CP ---
HPI Time Seen Time Seen by Provider: 07/15/21 11:42 HPI Comment HPI Comment: PATIENT IS 75YR OLD MALE IN ER WITH CHEST PAIN IN SUBSTERNAL AREA, PRESSURE PAIN ASSOCIATED WITH WEAKNESS, SOB, DIZZINESS AND HEADACHE. DENIES COUGH OR CONGESTION AND NO FEVER. Complaint Chief Complaint Doctor Comments: CHEST PAIN TIMES ONE DAY. COVID-19 Coronavirus risk:travel/contact w/high risk person: No Has patient experienced Coronavirus symptoms: No Reviewed Nurses Notes Review: Yes Source History Provided: Patient and Family Member Mode of Arrival Mode of Arrival: Ambulatory Timing Came on: Suddenly Duration Duration: Intermittent Duration: Days Location Location of Chest Pain: Chest (SUBSTERNAL) Chest Pain Radiation Location: Back Context Onset: At rest Cardiac Risk Factors: HTN and Diabetes PE Risk Factors: None History of: IN and Aspirin in last 24 hours Prehospital Care: None Quality Quality: Pressure like Severity Severity: Moderate Modifying Factors Worsens: Exertion Impoves: Rest Associated Signs and Symptoms Associated Signs and Symptoms: Shortness of Breath PMH PMH Past Medical History: Diabetes and Hypertension Past Surgical History: Yes Surgical History: Joint Replacement Family History Family Medical History: Cancer and Hypertension Social History Do you use any recreational Drugs:: No ROS Review of Systems Constitutional: See HPI, Weakness and Fatigue; negative Fever Eyes: No Symptoms Reported and See HPI; negative Blurred Vision and Diplopia ENTM: See HPI and Ear Pain; negative Nose Discharge and Nose Congestion Respiratoy: See HPI and Short of Breath; negative Moist Cough and Wheezing Cardiovascular: See HPI and Chest Pain; negative Edema Gastrointestinal/Abdominal: No Symptoms Reported and See HPI; negative Abdominal Pain, Diarrhea, Nausea and Vomiting Genitourinary: No Symptoms Reported and See HPI; negative Dysuria Neurological: See HPI, Headache, Weakness and Dizziness Musculoskeletal: No Symptoms Reported and See HPI; negative Back Pain and Muscle Pain Integumentary: No Symptoms Reported and See HPI; negative Rash and Juandice Hematologic/Lymphatic: See HPI and Easy Bruising Endocrine: No Symptoms Reported and See HPI; negative Increased Thirst and Increased Urine Psychiatric: No Symptoms Reported and See HPI All Other Systems: Reviewed and Negative PE Vitals Vitals: Temperature 97.5 F Pulse Rate 73 Respiratory Rate 12 Blood Pressure [Left Arm] 127/68 Blood Pressure [Right Arm] 121/59 Blood Pressure 137/63 O2 Sat by Pulse Oximetry 99 General Limitations: No Limitations General Appearance: Alert and In No Apparent Distress Head Head Exam: Normal Inspection, Atraumatic and Normocephalic Eyes Eye exam: Normal Appearance and PERRL; negative Scleral Icterus and Conjunctival Injection ENT ENT Exam: Normal Exam, Normal Oropharynx, Normal External Ear Exam and TM's Normal Bilaterally Chest Chest Inspection: Normal Inspection and Symmetric Chest Wall Rise; negative Tenderness Respiratory Respiratory Exam: Normal Lung Sounds Bilat; negative Accessory Muscle Use, Chest Wall Tenderness and Respiratory Distress Respiratory Exam: Bilateral: Rhonchi and Lower: Rhonchi Cardiovascular Cardiovascular Exam: Regular Rate, Normal Rhythm and Normal Heart Sounds; negative Systolic Murmur and Diastolic Murmur Pulse: Normal Edema: Normal Abdominal Exam Abdominal Exam: Normal Inspection, Normal Bowel Sounds and Soft; negative Tenderness Extremities Extremities Exam: Normal Inspection, Normal Capillary Refill and Edema (TRACE EDEMA.) Back Back Exam: Normal Inspection; negative (R) CVA Tenderness and (L) CVA Tenderness Neurologic Neurological Exam: Alert and Oriented X3; negative Motor Sensory Deficit Psychiatric Psychiatric Exam: Normal Affect and Normal Mood Skin Skin Exam: Warm, Dry, Intact and Normal Color MDM Additional Information Additional Information Obtained From: Family Differential Diagnosis Differential Diagnosis: Angina, Chest Wall Pain, CHF, Costochondritis, Myocardial Infarction, Pericarditis, Pneumonia and Pneumothorax COURSE Treatment Treatment: SEE ORDERS. PATIENT GIVEN ASA 81MG CHEWABLE. 2 TABS PO, MORPHIN 4MG IV AND ZOFRAN 4MG PO WHILE IN ER. HEADACHE IMPROVED. LABS AND XRAY REPORT AND EKG DISCUSSED WITH PATIENT AND HIS . HE WILL BE ADMITTED TO HOSPITAL FOR FURTHER MANAGEMENT. Reevaluation 1st: Improved Education/Counseling Education/Counseling: Patient and Family Educated On: Diagnosis Education Comments: DISCUSSED PATIENT WITH DR. CLEANING. HE WILL ADMIT PATIENT. ROR Labs Reviewed Laboratory Results Reviewed?: Yes Result Diagrams: 07/16/21 05:08 07/16/21 05:08 Laboratory: WBC 4.6 X10^3/uL (3.6-10.0) 07/15/21 12:15 RBC 3.66 X10^6/uL (4.7-6.0) L 07/15/21 12:15 Hgb 12.2 g/dL (13.5-18.0) L 07/15/21 12:15 Hct 35.1 % (42.0-54.0) L 07/15/21 12:15 MCV 95.7 fL (80.0-100.0) 07/15/21 12:15 MCH 33.3 pg (27.0-34.0) 07/15/21 12:15 MCHC 34.8 g/dL (33.0-35.0) 07/15/21 12:15 RDW 14.0 % (11.6-16.5) 07/15/21 12:15 Plt Count 174 X10^3/uL (150.0-450.0) 07/15/21 12:15 MPV 8.7 fL (7.4-11.0) 07/15/21 12:15 Neut % (Auto) 66.5 % (42.0-75.0) 07/15/21 12:15 Lymph % (Auto) 20.3 % (21.0-51.0) L 07/15/21 12:15 [place] % (Auto) 8.7 % (0.0-13.0) 07/15/21 12:15 Eos % (Auto) 3.8 % (0.9-2.9) H 07/15/21 12:15 Baso % (Auto) 0.7 % (0.2-1.0) 07/15/21 12:15 Neut # (Auto) 3.0 x10^3/uL (2.2-4.8) 07/15/21 12:15 Lymph # (Auto) 0.9 X10^3/uL (1.3-2.9) L 07/15/21 12:15 [place] # (Auto) 0.4 x10^3/uL (0.3-0.8) 07/15/21 12:15 Eos # (Auto) 0.2 x10^3/uL (0.0-0.2) 07/15/21 12:15 Baso # (Auto) 0.0 X10^3/uL (0.0-0.1) 07/15/21 12:15 Absolute Nucleated RBC 0.0 /100WBC 07/15/21 12:15 PT 13.8 SECONDS (11.8-14.3) 07/15/21 12:15 INR Target Range - 07/15/21 12:15 INR 1.11 (0.8-1.3) 07/15/21 12:15 APTT 29.3 SECONDS (22.9-36.5) 07/15/21 12:15 PTT Comment - 07/15/21 12:15 Sodium 139 mmol/L (136-145) 07/15/21 12:15 Corrected Sodium 141 mmol/L (136-145) 07/15/21 12:15 Potassium 3.6 mmol/L (3.5-5.1) 07/15/21 12:15 Chloride 105 mmol/L (98-107) 07/15/21 12:15 Carbon Dioxide 22.4 mmol/L (21-32) 07/15/21 12:15 BUN 19 mg/dL (7-18) H 07/15/21 12:15 Creatinine 1.44 mg/dL (0.70-1.30) H 07/15/21 12:15 Est GFR (MDRD) Af Amer > 60 (>60) 07/15/21 12:15 Est GFR (MDRD) Non-Af 51 (>60) L 07/15/21 12:15 Glucose 183 mg/dL (65-99) H 07/15/21 12:15 Calcium 7.7 mg/dL (8.5-10.1) L 07/15/21 12:15 Corrected Calcium 8.3 mg/dL (8.5-10.1) L 07/15/21 12:15 Magnesium 1.4 mg/dL (1.7-2.9) L 07/15/21 12:15 Total Bilirubin 0.50 mg/dL (0.2-1.0) 07/15/21 12:15 AST 19 Units/L (15-37) 07/15/21 12:15 ALT 33 Units/L (12-78) 07/15/21 12:15 Alkaline Phosphatase 67 Units/L (46-116) 07/15/21 12:15 Creatine Kinase 91 Units/L (39-308) 07/15/21 12:15 CK-MB (CK-2) 1.2 ng/mL (0-4.0) 07/15/21 12:15 CK/CKMB % Calc 1.3 % (<4) 07/15/21 12:15 Troponin I High Sens 11.3 ng/L (4.0-60.0) 07/15/21 12:15 Total Protein 7.0 g/dL (6.4-8.2) 07/15/21 12:15 Albumin 3.3 g/dL (3.4-5.0) L 07/15/21 12:15 Globulin 3.7 g/dL (2.5-4.5) 07/15/21 12:15 Albumin/Globulin Ratio 0.9 Ratio (1.1-2.1) L 07/15/21 12:15 XRAY XRAY Interpreted by: Radiologist (REPORT NOTED.) and Self EKG Rate: 82 [place]: Normal and LAD Rhythm: NSR Block: None Hypertrophy: None ST: Nonsp (LOW VOLTAGE.) Opioid Opioid Risk Tool Age (Oscar box if 16-45): No History of Preadolescent Sexual Abuse: No Total: 0 Total Score Risk Category: Low Risk Copyright: Olayinka CASTILLO predicting aberrant behaviors Diagnosis Discharge Problem: SOB (shortness of breath), Dizziness Chest pain Qualifiers: Chest pain type: precordial pain Qualified Code(s): R07.2 - Precordial pain Headache Qualifiers: Headache type: unspecified Headache chronicity pattern: acute headache Intractability: not intractable Qualified Code(s): R51.9 - Headache, unspecified Instructions Instructions: Nonspecific Chest Pain, Adult, Nlqg-[id number] Heart Failure, Self Care, Axsv-bm-Fxev Vertigo, Hfzd-cg-[id number] Type 2 Diabetes Mellitus, Self-Care, Adult, Nvcj-lo-Knsk Hypertension, Adult, Lttf-kn-Vhae Dizziness, Qabd-ct-Nmxj Forms: Precautions for COVID19 [facility] Social Distancing
[2021-07-15 12:26] LABS: BASOPHILS % (AUTO) 0.7 % (0.2-1.0); EOSINOPHILS # (AUTO) 0.2 x10^3/uL (0.0-0.2); EOSINOPHILS % (AUTO) 3.8 % (0.9-2.9); HEMATOCRIT 35.1 % (42.0-54.0); HEMOGLOBIN 12.2 g/dL (13.5-18.0); LYMPHOCYTES # (AUTO) 0.9 X10^3/uL (1.3-2.9); LYMPHOCYTES % (AUTO) 20.3 % (21.0-51.0); MEAN CORPUSCULAR HEMOGLOBIN 33.3 pg (27.0-34.0); MEAN CORPUSCULAR HGB CONC 34.8 g/dL (33.0-35.0); MEAN CORPUSCULAR VOLUME 95.7 fL (80.0-100.0); MEAN PLATELET VOLUME 8.7 fL (7.4-11.0); MONOCYTES # (AUTO) 0.4 x10^3/uL (0.3-0.8); MONOCYTES % (AUTO) 8.7 % (0.0-13.0); NEUTROPHILS % (AUTO) 66.5 % (42.0-75.0); RED BLOOD COUNT 3.66 X10^6/uL (4.7-6.0); WHITE BLOOD COUNT 4.6 X10^3/uL (3.6-10.0)
[2021-07-15] MEDS ORDERED: ZOFRAN INJ 4 MG VIAL IVP ONE (12:32)
[2021-07-15] MEDS ORDERED: MORPHINE SULFATE INJ 4 MG IVP ONE (12:32)
[2021-07-15] MEDS ORDERED: ASPIRIN 81 MG CHEWTAB PO ONE (12:33)
--- NOTE | 2021-07-15 12:36 | RAD ---
HISTORYchest pain that started yesterday while cleaning up at his son's house, also dizziness and sob. Pt states the pain eased off and then returned today when he was unloading a truck. Pt reports dizziness is worseSTUDYCHEST, 1 [id number]/2021FINDINGSThe cardiomediastinal silhouette is stable. No acute airspace disease. No pneumothorax or effusion. The bony thorax appears intact. Partially visualized right shoulder arthroplasty hardware.IMPRESSIONNo acute cardiopulmonary disease.Electronically signed by: MURPHY CERRATO (Jul 15, 2021 12:36:14)
[2021-07-15] MEDS ORDERED: ASPIRIN 81 MG CHEWTAB ONE (12:40)
[2021-07-15] MEDS ORDERED: ZOFRAN INJ 4 MG VIAL ONE (12:41)
[2021-07-15] MEDS ORDERED: MORPHINE SULFATE INJ 4 MG ONE (12:41)
[2021-07-15 12:52] LABS: ALANINE AMINOTRANSFERASE 33 Units/L (12-78); ALBUMIN 3.3 g/dL (3.4-5.0); ALKALINE PHOSPHATASE 67 Units/L (46-116); ASPARTATE AMINO TRANSFERASE 19 Units/L (15-37); BLOOD UREA NITROGEN 19 mg/dL (7-18); CALCIUM 7.7 mg/dL (8.5-10.1); CARBON DIOXIDE 22.4 mmol/L (21-32); CHLORIDE 105 mmol/L (98-107); CKMB % 1.3 % (<4); COR CA(FOR HYPOALB) 8.3 mg/dL (8.5-10.1); COR NA(FOR HYPERGLY) 141 mmol/L (136-145); CREATINE KINASE 91 Units/L (39-308); CREATINE KINASE MB 1.2 ng/mL (0-4.0); CREATININE 1.44 mg/dL (0.70-1.30); MAGNESIUM 1.4 mg/dL (1.7-2.9); SODIUM 139 mmol/L (136-145); eGFR NON BLACK RACES 51 (>60)
[2021-07-15 18:11] VITALS: BMI 35.1
[2021-07-15 23:51] LABS: CKMB % 1.2 % (<4)
[2021-07-16] MEDS ORDERED: RESTORIL CAP 15 MG PO PRN (02:02)
[2021-07-16] MEDS ORDERED: K-DUR TAB 20 MEQ PO PRN (02:28)
[2021-07-16] MEDS ORDERED: POTASSIUM CHLORIDE LIQ 20 MEQ UDC PO PRN (02:28)
[2021-07-16] MEDS ORDERED: POTASSIUM CHL 60 MEQ/NS 0.45% 500 ML IV PRN (02:28)
[2021-07-16] MEDS ORDERED: K-RIDER 10 MEQ/NS 100 ML 10 MEQ/100 ML BAG IV PRN (02:28)
[2021-07-16] MEDS ORDERED: MICRO K EXTEN CAP 10 MEQ PO PRN (02:28)
[2021-07-16] MEDS ORDERED: KLOR-CON PO PRN (02:28)
[2021-07-16] MEDS ORDERED: POTASSIUM CHL 40 MEQ/NS 0.45% 500 ML IV PRN (02:28)
[2021-07-16] MEDS: NS 1,000 ML IV 1,000 ML IV SCH ×2 (02:29→07:06)
[2021-07-16] MEDS: MAGNESIUM SULFATE 1 GRAM/100 mL PREMIX 1 G/100 ML BAG IV PRN ×2 (02:55→04:38)
[2021-07-16 06:51] LABS: BASOPHILS % (AUTO) 0.5 % (0.2-1.0); EOSINOPHILS # (AUTO) 0.2 x10^3/uL (0.0-0.2); EOSINOPHILS % (AUTO) 5.9 % (0.9-2.9); HEMATOCRIT 32.4 % (42.0-54.0); HEMOGLOBIN 11.2 g/dL (13.5-18.0); LYMPHOCYTES # (AUTO) 1.2 X10^3/uL (1.3-2.9); LYMPHOCYTES % (AUTO) 29.9 % (21.0-51.0); MEAN CORPUSCULAR HEMOGLOBIN 33.3 pg (27.0-34.0); MEAN CORPUSCULAR HGB CONC 34.7 g/dL (33.0-35.0); MEAN CORPUSCULAR VOLUME 96.1 fL (80.0-100.0); MEAN PLATELET VOLUME 9.4 fL (7.4-11.0); MONOCYTES # (AUTO) 0.3 x10^3/uL (0.3-0.8); MONOCYTES % (AUTO) 7.8 % (0.0-13.0); NEUTROPHILS # (AUTO) 2.3 x10^3/uL (2.2-4.8); NEUTROPHILS % (AUTO) 55.9 % (42.0-75.0); RED BLOOD COUNT 3.37 X10^6/uL (4.7-6.0); WHITE BLOOD COUNT 4.1 X10^3/uL (3.6-10.0)
[2021-07-16 07:25] LABS: ALANINE AMINOTRANSFERASE 29 Units/L (12-78); ALBUMIN 2.9 g/dL (3.4-5.0); ALKALINE PHOSPHATASE 63 Units/L (46-116); ASPARTATE AMINO TRANSFERASE 19 Units/L (15-37); BLOOD UREA NITROGEN 15 mg/dL (7-18); CALCIUM 7.6 mg/dL (8.5-10.1); CARBON DIOXIDE 21.5 mmol/L (21-32); CHLORIDE 108 mmol/L (98-107); CHOL/HDL RATIO 2.9 (0.0-5.0); CHOLESTEROL 93 mg/dL (0-200); CKMB % 1.5 % (<4); COR CA(FOR HYPOALB) 8.5 mg/dL (8.5-10.1); COR NA(FOR HYPERGLY) 140 mmol/L (136-145); CREATINE KINASE 74 Units/L (39-308); CREATINE KINASE MB 1.1 ng/mL (0-4.0); CREATININE 0.96 mg/dL (0.70-1.30); HDL CHOLESTEROL 32 mg/dL (40-60); MAGNESIUM 2.2 mg/dL (1.7-2.9); SODIUM 140 mmol/L (136-145); TOTAL PROTEIN 6.2 g/dL (6.4-8.2); TRIGLYCERIDES 65 mg/dL (0-150); eGFR NON BLACK RACES > 60 (>60)
[2021-07-16 08:21] VITALS: BP 137/72
--- NOTE | 2021-07-16 08:34 | DR.H&P ---
H&P - History & Physical for Day of: H&P Date: 07/15/21 - Chief Complaint Chief Complaint: CHEST PAIN ,WEAKNESS, DIZZINESS, SOB, HEADACHE - History of Present Illness History of Present Illness: IS A 75 YEAR OLD PATIENT OF OURS. HE UT ESENTED TO THE ER WITH COMPLAINTS OF SUBSTERNAL CHEST PAIN AND CHEST PRESSURE. THERE IS ASSOCIATED WEAKNESS, SHORTNESS OF BREATH, DIZZINESS, AND HEADACHE. PATIENT REPORTED THAT SYMPTOMS STARTED ON DAY PRIOR. HE DESCRIBES PAIN INTERMITTENT, DULL/PRESSURE-LIKE, AND RATED IT A 4/10 ON ARRIVAL. HE HAS A PMH OF PR, HTN, DM II, CAD, HYPERLIPIDEMIA, GERD, CARDIAC STENTS. WHEN QUESTIONED ABOUT STRESSORS, PATIENT REPORTED THAT HIS SON LAST WEEK. ON ARRIVAL, HIS VITALS WERE 97.5-92-19-96%-143/67. LABS WERE OBTAINED. WBC 4.6, RBC 3.66, HGB 12.2, HCT 35.1, SODIUM 139, POTASSIUM 3.6, BUN 19, CREATININE 1.44, GLUCOSE 183, CALCIUM 7.7, MAGNESIUM 1.4, AST 19, ALT 33, ALK PHOS 67, TOTAL PROTEIN 7.0, ALBUMIN 3.3, HDL 32. CARDIAC ENZYMES WERE WITHIN NORMAL LIMITS. COVID-19 NEGATIVE. AN EKG WAS OBTAINED AND REVEALED: SINUS RHYTHM WITH HR 82. CHEST XRAY OBTAINED AND REVEALED: NO ACUTE CARDIOPULMONARY DISEASE. IN THE ER, HE WAS GIVEN MORPHINE 4MG IV X 1, ZOFRAN 4MG IV X 1, ASPIRIN 162MG PO. HE REPORTED SLIGHT IMPROVEMENT IN HEADACHE AND CHEST PAIN. HE WAS ADMITTED TO THE HOSPTIAL FOR FURTHER EVALUATION AND TREATMENT OF CHEST PAIN RULE OUT ACUTE PR, DIZZINESS, AND SHORTNESS OF BREATH. HE WAS STARTED ON NORMAL SALINE AT O, AND THE POTASSIUM AND MAGNESIUM PROTOCOLS. WE WILL RESUME HIS HOME MEDICATIONS OF METOPROLOL, LISINOPRIL, GLIPIZIDE, PLAVIX, ASPIRIN, ELIQUIS, OMEPRAZOLE, LIPITOR, AND NORVASC. WHILE HE IS HERE, WE WILL CONSULT WITH CARDIOLOGY AND HAVE THEM SEE HIM. WE WILL OBTAIN SERIAL CARDIAC ENZYMES AND EKGS. OTHERWISE, WE PLAN TO FOLLOW UP WITH AM LABS AND CONTINUE TO MONITOR. TIME SPENT ON CLINICAL ASSESSMENT, REVIEWING LABS AND IMAGING, DECISION MAKING, AND DOCUMENTATION GREATER THAN 75 MINUTES. 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, Ortho Surgery Additional Surgical History: Two Heart Catheterization's, Right Total Knee, Right Shoulder Replacement, Fatty tissue removed from left side of neck - Family History Family Medical History: Cancer, PR - Social History Does patient currently use any type of tobacco product: No Have you used tobacco products in the last 12 months: No Alcohol Use: None Drug Use: None - Medications Home Medications: No Known Drug Allergies Allergy (Verified 07/15/21 11:34) CONTINUE taking the following medications liraglutide [Victoza 2-Kody] See Rx Instructions .ROUTE .COMPLEX 07/15/21 [History] lisinopril [Zestril] 40 mg PO BID 07/15/21 [History] - Review of Systems Constitutional: Weakness Eyes: No Symptoms Reported Respiratory: Shortness of Breath, SOB with Excertion Cardiovascular: Chest Pain, See HPI, Light Headedness Gastrointestinal: No Symptoms Reported Genitourinary: No Symptoms Reported Musculoskeletal: No Symptoms Reported Skin: No Symptoms Reported Neurological: Weakness, Other (HEADACHE ) - Physical Exam Vital Signs: Temperature 98.0 F Pulse Rate [Left] 67 Pulse Rate 74 Respiratory Rate 18 Blood Pressure [Left Arm] 137/72 Blood Pressure [Right Arm] 121/59 Blood Pressure 147/70 O2 Sat by Pulse Oximetry 95 Oriented: Normal Eyes: Normal Ear: Normal Nose: Normal Throat: Normal Respiratory: Diminished Throughout Cardiovascular: Normal : Normal Auscultation: Bowel Sounds: Normal Tenderness: Normal Skin: Normal Musculoskeletal: Normal Psychiatric: Normal Mood Description: Calm Affect: Normal Speech Pattern: Clear - Assessment/Plan (1) Chest pain, rule out acute myocardial infarction Status: Acute Plan: ADMIT, SERIAL CARDIAC ENZYMES AND EKGS, NORMAL SALINE AT KVO, AND THE POTASSIUM AND MAGNESIUM PROTOCOLS, RESUME HOME MEDS. (2) Dizziness Status: Acute (3) Headache Qualifiers: Headache type: unspecified Headache chronicity pattern: acute headache Intractability: not intractable Qualified Code(s): R51.9 - Headache, unspecified Status: Acute (4) SOB (shortness of breath) Status: Acute - Allergies Allergies/Adverse Reactions: Allergies Allergy/AdvReac Type Severity Reaction Status Date / Time No Known Drug Allergies Allergy Verified 07/15/21 11:34
--- NOTE | 2021-07-16 10:12 | DR.CARTERS ---
Short Stay Summary - Admission Date Date of Admission: 07/15/21 - Discharge Date Discharge Date: 07/16/21 - Admission Diagnoses (1) Chest pain, rule out acute myocardial infarction Status: Acute (2) Dizziness Status: Acute (3) Headache Status: Acute (4) SOB (shortness of breath) Status: Acute - Hospital Course Hospital Course: IS A 75 YEAR OLD PATIENT OF OURS. HE PRESENTED TO THE ER WITH COMPLAINTS OF SUBSTERNAL CHEST PAIN AND CHEST PRESSURE. THERE IS ASSOCIATED WEAKNESS, SHORTNESS OF BREATH, DIZZINESS, AND HEADACHE. PATIENT REPORTED THAT SYMPTOMS STARTED ON DAY PRIOR. HE DESCRIBES PAIN INTERMITTENT, DULL/PRESSURE- LIKE, AND RATED IT A 4/10 ON ARRIVAL. HE HAS A PMH OF ME, HTN, DM II, CAD, HYPERLIPIDEMIA, GERD, CARDIAC STENTS. WHEN QUESTIONED ABOUT STRESSORS, PATIENT REPORTED THAT HIS SON LAST WEEK. ON ARRIVAL, HIS VITALS WERE 97.5-92-19-96%-143/67. LABS WERE OBTAINED. WBC 4.6, RBC 3.66, HGB 12.2, HCT 35.1, SODIUM 139, POTASSIUM 3.6, BUN 19, CREATININE 1.44, GLUCOSE 183, CALCIUM 7.7, MAGNESIUM 1.4, AST 19, ALT 33, ALK PHOS 67, TOTAL PROTEIN 7.0, ALBUMIN 3.3, HDL 32. CARDIAC ENZYMES WERE WITHIN NORMAL LIMITS. COVID-19 NEGATIVE. AN EKG WAS OBTAINED AND REVEALED: SINUS RHYTHM WITH HR 82. CHEST XRAY OBTAINED AND REVEALED: NO ACUTE CARDIOPULMONARY DISEASE. IN THE ER, HE WAS GIVEN MORPHINE 4MG IV X 1, ZOFRAN 4MG IV X 1, ASPIRIN 162MG PO. HE REPORTED SLIGHT IMPROVEMENT IN HEADACHE AND CHEST PAIN. HE WAS ADMITTED TO THE HOSPTIAL FOR FURTHER EVALUATION AND TREATMENT OF CHEST PAIN RULE OUT ACUTE ME, DIZZINESS, AND SHORTNESS OF BREATH. HE WAS STARTED ON NORMAL SALINE AT [facility], AND THE POTASSIUM AND MAGNESIUM PROTOCOLS. WE WILL RESUME HIS HOME MEDICATIONS OF METOPROLOL, LISINOPRIL, GLIPIZIDE, PLAVIX, ASPIRIN, ELIQUIS, OMEPRAZOLE, LIPITOR, AND NORVASC. WHILE HE IS HERE, WE WILL CONSULT WITH CARDIOLOGY AND HAVE THEM SEE HIM. WE PLANNED TO OBTAIN SERIAL CARDIAC ENZYMES AND EKGS. OTHERWISE, WE PLANNED TO FOLLOW UP WITH AM LABS AND CONTINUE TO MONITOR. ON THE MORNING FOLLOWING ADMISSION, PATIENT IS ALERT AND ORIENTED, LYING IN BED ON MORNING ROUNDS. HE DENIES CHEST PAIN, DIZZINESS, HEADACHE, OR SHORTNESS OF BREATH THIS MORNING. HE REPORTS FEELING WELL. ON EXAMINATION, HEART IS REGULAR IN RATE AND RHYTHM. BILATERAL LUNGS NOTED WITH DIMINISHED LUNG SOUNDS THROUGHOUT. ABDOMEN IS ROUND, SOFT, AND NON-TENDER WITH NORMAL BOWEL SOUNDS NOTED IN ALL QUADRANTS. NO UPPER OR LOWER EXTREMITY EDEMA NOTED. HIS VITALS THIS MORNING ARE: 98.0-67-18-95%-137/72. LABS WERE OBTAINED. ABNORMAL LAB VALUES INCLUDE THE FOLLOWING: RBC 3.37, HGB 11.2, HCT 32.4, CHLORIDE 108, GLUCOSE 116, CALCIUM 7.6, TOTAL PROTEIN 6.2, ALBUMIN 2.9. CARDIAC ENZYMES HAVE REMAINED STABLE. NO CHANGES NOTED TO EKGs. WE PLANNED FOR DISCHARGE. INSTRUCTIONS FOR MEDICATIONS AND FOLLOW-UP WERE DISCUSSED WITH PATIENT AND HIS SPOUSE. THEY VERBALIZED UNDERSTANDING OF ORDERS. HE WAS INSTRUCTED TO CONTINUE HIS CURRENT MEDICATIONS. WE WILL GIVE HIM A NEW PRESCRIPTION FOR CYMBALTA 30MG PO HS. WE WILL SEE HIM IN THE OFFICE IN 1 WEEK AND ALSO REFER HIM TO , PRESS PULLER FOR EVALUATION. TIME SPENT ON CLINICAL ASSESSMENT, REVIEWING LABS AND IMAGING, DECISION MAKING, DISCHARGE INSTRUCTIONS, PREPARING DISCHARGE PAPERS, AND DOCUMENTATION GREATER THAN 75 MINUTES. - Discharge Medications Discharge Medications: Home Medication List liraglutide [Victoza 2-Kody] See Rx Instructions .ROUTE .COMPLEX 07/15/21 [History] lisinopril [Zestril] 40 mg PO BID 07/15/21 [History] duloxetine [Cymbalta] 30 mg PO HS #30 cap 07/16/21 [Rx] Prescriptions: duloxetine [Cymbalta] Cachorro Hopson - Discharge Plan Disposition: HOME, SELF-CARE Condition: Stable Prescriptions: duloxetine [Cymbalta] 30 mg PO HS #30 cap meclizine 25 mg PO TID PRN #30 tab PRN Reason: Dizziness - Follow up/Referrals Follow up/Referrals: Cachorro Hopson [Primary Care Provider] - 07/23/21 10:30 am CAL RIOS [REFERRING] - 1 WEEK (Will call with follow up appointment.) - Instructions Instructions: Nonspecific Chest Pain, Adult, Mmit-gq-Kzum, Heart Failure, Self Care, Amns-om-Ocad, Vertigo, Yzmm-[id number]-[id number], Type 2 Diabetes Mellitus, Self-Care, Adult, Xsvt-uq-Whyy, Hypertension, Adult, Tdjk-pl-Qzna, Dizziness, Tcir-ze-Sadx Additional Instructions: DIET TOLERATED. ACTIVITY TOLERATED. Forms: Precautions for COVID19, [facility], Patient Portal, Social Distancing
== END 2021-07-16 11:30 | disposition home or self-care (01) ==
LOC: MED/SURG 11:33 → ER 11:33 → MED/SURG 17:20
PROVIDERS: ADMIT Internal Medicine; ATTEND Internal Medicine

== ENCOUNTER 2022-09-05 10:39 | Observation (INO) ==
--- NOTE | 2022-09-05 11:08 | DR.GENAD ---
HPI Time Seen Time Seen by Provider: 09/05/22 11:07 PCP Primary Care Physician: vinny HPI Comment HPI Comment: PATIENT IS 76YR OLD MALE IN ER WITH SOB, ELEVATED BP AND LEFT FACIAL NUMBNESS TIMES 3 DAYS. WORSE TODAY. DENIES FEVER, COUGH, CONGESTION AND DYSURIA. DENIES TRAUMA. HISTORY DM, DYSLIPIDEMIA AND HTN. Complaint/Symptoms Chief Complaint Doctors Comments: ELEVATED BP, SOB AND HTN. Chief Complaint:: "BLOOD PRESSURE BEEN UP, HEADACHE, NUMBNESS IN FACE, CANT HARDLY BREATHE" Self Treatment fo Chief Complaint: NONE COVID-19 Coronavirus risk:travel/contact w/high risk person: No Has patient experienced Coronavirus symptoms: No Nurses notes reviewed Nurses Notes Review: Yes Source History Provided: Patient and Significant Other Mode of Arrival Mode of Arrival: Ambulatory Timing Onset of Chief Complaint: 09/02/22 PMH PMH Past Medical History: Yes Past Medical History: Diabetes, Dyslipidemia and Hypertension Past Surgical History: Yes Surgical History: Ortho Surgery Past Surgical History Comment: STENTS X1 Family History History of Family Medical Conditions: Yes Family Medical History: Diabetes Mellitus, Cancer, [place], Coronary Artery Disease, Sudden Cardiac and Hypertension Social History Does patient currently use any type of tobacco product: No Have you used tobacco products in the last 12 months: No Type of Tobacco Use: None Does any household member use tobacco: No Alcohol Use: None Do you use any recreational Drugs:: No Lives With: Spouse Lives Where: Home Travel Risk Coronavirus risk:travel/contact w/high risk person: No Has patient experienced Coronavirus symptoms: No Infectious screening In the last 2 months have you had wt loss of >10#?: NO Have you had fever, night sweats or hemotysis?: No Have you traveled outside the country in the last 6 months?: No Isolation: Standard ROS Review of Systems Constitutional: No Symptoms Reported; negative Fever Eyes: Blurred Vision ENTM: No Symptoms Reported; negative Nose Discharge or Nose Congestion Respiratoy: Short of Breath; negative Moist Cough Cardiovascular: Chest Pain; negative Syncope Gastrointestinal/Abdominal: negative Abdominal Pain, Nausea or Vomiting Genitourinary: No Symptoms Reported; negative Dysuria Neurological: Headache and Numbness (LEFT FACE.) Musculoskeletal: No Symptoms Reported; negative Muscle Pain Integumentary: No Symptoms Reported; negative Rash or Juandice Hematologic/Lymphatic: No Symptoms Reported, Easy Bleeding and Easy Bruising Endocrine: No Symptoms Reported; negative Increased Thirst or Increased Urine Psychiatric: No Symptoms Reported All Other Systems: Reviewed and Negative PE Vital Signs Vitals: Temperature 98 F Pulse Rate 70 Respiratory Rate 17 Blood Pressure [Left Arm] 137/72 Blood Pressure 175/81 O2 Sat by Pulse Oximetry 97 General Limitations: No Limitations General Appearance: Alert and In No Apparent Distress Head Head Exam: Normal Inspection and Atraumatic Eyes Eye exam: Normal Appearance, PERRL and EOMI; negative Scleral Icterus or Conjunctival Injection ENT ENT Exam: Normal Exam, Normal Oropharynx, Normal External Ear Exam and TM's Normal Bilaterally External Ear Exam: Normal External Inspection; negative Mastoid Tenderness TM/Canal Exam: Bilateral: Normal Nose Exam: Normal Nose Exam Mouth Exam: Normal Inspection Throat Exam: Tonsillar Erythema; negative Tonsillomegaly or Tonsillar Exudate Neck Neck Exam: Normal Inspection and Trachea Midline; negative Tenderness Chest Chest Inspection: Normal Inspection and Symmetric Chest Wall Rise; negative Tenderness Respiratory Respiratory Exam: Normal Lung Sounds Bilat; negative Accessory Muscle Use, Chest Wall Tenderness or Respiratory Distress Cardiovascular Cardiovascular Exam: Regular Rate, Normal Rhythm and Normal Heart Sounds; negative Systolic Murmur or Diastolic Murmur Abdominal Exam Abdominal Exam: Normal Inspection, Normal Bowel Sounds and Soft; negative Tenderness Extremities Extremities Exam: Normal Inspection and Normal Capillary Refill Back Back Exam: Normal Inspection; negative (R) CVA Tenderness or (L) CVA Tenderness Neurologic Neurological Exam: Alert and Oriented X3 Psychiatric Psychiatric Exam: Normal Affect and Normal Mood Skin Skin Exam: Intact MDM Differential Diagnosis Differential Diagnosis: CHEST PAIN, NV, CHF, PNEUMONIA COURSE Treatment Treatment: PATIENT IS 76YR OLD MALE IN ER WITH 3 DAYS CHEST PAIN AND PRESSURE AND NUMBNESS LEFT FACE NOTED TODAY. CARDIAC ENZYMES NORMAL, EKG NO ST ELEVATION. IV TYLENOL GIVEN FOR HEADACHE AND PAIN IMPROVED. HEAD CT NO ACUTE FINDINGS. Consultation Consultation Comments: DISCUSSED PATIENT WITH DR. ROJAS. SHE WILL ADMIT PATIENT. Education/Counseling Education/Counseling: Patient Educated On: Diagnosis ROR Labs Reviewed Laboratory Results Reviewed?: Yes Result Diagrams: 09/06/22 05:39 09/06/22 05:39 Laboratory: WBC 6.2 X10^3/uL (3.6-10.0) 09/05/22 11:23 RBC 3.76 X10^6/uL (4.7-6.0) L 09/05/22 11:23 Hgb 12.5 g/dL (13.5-18.0) L 09/05/22 11:23 Hct 36.5 % (42.0-54.0) L 09/05/22 11:23 MCV 97.1 fL (80.0-100.0) 09/05/22 11:23 MCH 33.4 pg (27.0-34.0) 09/05/22 11: MCHC 34.4 g/dL (33.0-35.0) 09/05/22 11:23 RDW 14.3 % (11.6-16.5) 09/05/22 11:23 Plt Count 161 X10^3/uL (150.0-450.0) 09/05/22 11: MPV 9.2 fL (7.4-11.0) 09/05/22 11: Neut % (Auto) 72.0 % (42.0-75.0) 09/05/22 11: Lymph % (Auto) 16.0 % (21.0-51.0) L 09/05/22 11:23 [place] % (Auto) 7.3 % (0.0-13.0) 09/05/22 11: Eos % (Auto) 4.0 % (0.9-2.9) H 09/05/22 11: Baso % (Auto) 0.7 % (0.2-1.0) 09/05/22 11:23 Neut # (Auto) 4.4 x10^3/uL (2.2-4.8) 09/05/22 11:23 Lymph # (Auto) 1.0 X10^3/uL (1.3-2.9) L 09/05/22 11:23 [place] # (Auto) 0.4 x10^3/uL (0.3-0.8) 09/05/22 11: Eos # (Auto) 0.2 x10^3/uL (0.0-0.2) 09/05/22 11:23 Baso # (Auto) 0.0 X10^3/uL (0.0-0.1) 09/05/22 11: Absolute Nucleated RBC 0.0 /100WBC 09/05/22 11:23 PT 13.8 SECONDS (11.8-14.3) 09/05/22 11:23 INR Target Range - 09/05/22 11:23 INR 1.08 (0.8-1.3) 09/05/22 11:23 APTT 27.3 SECONDS (22.9-36.5) 09/05/22 11:23 PTT Comment - 09/05/22 11:23 Sodium 141 mmol/L (136-145) 09/05/22 11:23 Corrected Sodium 142 mmol/L (136-145) 09/05/22 11:23 Potassium 3.9 mmol/L (3.5-5.1) 09/05/22 11:23 Chloride 105 mmol/L (98-107) 09/05/22 11:23 Carbon Dioxide 23.8 mmol/L (21-32) 09/05/22 11:23 BUN 17 mg/dL (7-18) 09/05/22 11:23 Creatinine 1.15 mg/dL (0.70-1.30) 09/05/22 11:23 Est GFR (MDRD) Af Amer > 60 (>60) 09/05/22 11:23 Est GFR (MDRD) Non-Af > 60 (>60) 09/05/22 11:23 Glucose 121 mg/dL (65-99) H 09/05/22 11:23 Calcium 8.6 mg/dL (8.5-10.1) 09/05/22 11:23 Corrected Calcium TNP 09/05/22 11:23 Total Bilirubin 0.40 mg/dL (0.2-1.0) 09/05/22 11:23 AST 16 Units/L (15-37) 09/05/22 11:23 ALT 26 Units/L (12-78) 09/05/22 11:23 Alkaline Phosphatase 62 Units/L (46-116) 09/05/22 11:23 Creatine Kinase 74 Units/L (39-308) 09/05/22 11:23 Troponin I High Sens 9.5 ng/L (4.0-60.0) 09/05/22 13:16 B-Natriuretic Peptide 160 pg/mL (0-79) H 09/05/22 11:23 Total Protein 7.5 g/dL (6.4-8.2) 09/05/22 11:23 Albumin 3.5 g/dL (3.4-5.0) 09/05/22 11:23 Globulin 4.0 g/dL (2.5-4.5) 09/05/22 11:23 Albumin/Globulin Ratio 0.9 Ratio (1.1-2.1) L 09/05/22 11:23 XRAY XRAY Interpreted by: Radiologist (REPORTS NOTED.) and Self EKG Rate: 77 [place]: Normal Rhythm: NSR Block: None Hypertrophy: None ST: Normal Opioid Opioid Risk Tool Age (Oscar box if 16-45): No History of Preadolescent Sexual Abuse: No Total: 0 Total Score Risk Category: Low Risk Copyright: Olayinka CASTILLO predicting aberrant behaviors Discharge Plan Diagnosis Discharge Problem: Chest pain, Weakness on left side of face, Shortness of breath Discharge Plan Patient Disposition: ADMITTED INPATIENT Condition: Stable
--- NOTE | 2022-09-05 11:09 | EKG ---
Test Reason : CHEST PAIN Blood Pressure : */* mmHG Vent. Rate : 77 BPM Atrial Rate : 77 BPM P-R Int : 182 ms QRS Dur : 102 ms QT Int : 384 ms P-R-T Axes : 61 33 50 degrees QTc Int : 434 ms Normal sinus rhythm Normal ECG No previous ECGs available Confirmed by Ren Monique ([id number]) on 09/06/2022 9:43:03 AM Referred By: Confirmed By: Ren Monique
[2022-09-05 11:31] LABS: BASOPHILS % (AUTO) 0.7 % (0.2-1.0); EOSINOPHILS # (AUTO) 0.2 x10^3/uL (0.0-0.2); HEMATOCRIT 36.5 % (42.0-54.0); HEMOGLOBIN 12.5 g/dL (13.5-18.0); MEAN CORPUSCULAR HEMOGLOBIN 33.4 pg (27.0-34.0); MEAN CORPUSCULAR HGB CONC 34.4 g/dL (33.0-35.0); MEAN CORPUSCULAR VOLUME 97.1 fL (80.0-100.0); MEAN PLATELET VOLUME 9.2 fL (7.4-11.0); MONOCYTES # (AUTO) 0.4 x10^3/uL (0.3-0.8); MONOCYTES % (AUTO) 7.3 % (0.0-13.0); NEUTROPHILS # (AUTO) 4.4 x10^3/uL (2.2-4.8); PLATELET COUNT 161 X10^3/uL (150.0-450.0); RED BLOOD COUNT 3.76 X10^6/uL (4.7-6.0); RED CELL DISTRIBUTION WIDTH 14.3 % (11.6-16.5); WHITE BLOOD COUNT 6.2 X10^3/uL (3.6-10.0)
[2022-09-05 11:36] LABS: INR 1.08 (0.8-1.3)
--- NOTE | 2022-09-05 11:36 | RAD ---
HISTORYhx: DM, HTN SX: stents, ortho chest pain, elevated blood pressureSTUDYCHEST, 1 VIEWCOMPARISONMarch 2021FINDINGSThe trachea is midline. The cardiac silhouette is enlarged stable. The lungs are clear without focal infiltrate or effusion. The bony thorax is unremarkable.IMPRESSIONNo acute cardiopulmonary disease.Electronically signed by: THERESE MIDDLETON (Sep 05, 2022 11:35:48)
[2022-09-05 11:44] LABS: ALANINE AMINOTRANSFERASE 26 Units/L (12-78); ALBUMIN 3.5 g/dL (3.4-5.0); ALKALINE PHOSPHATASE 62 Units/L (46-116); ASPARTATE AMINO TRANSFERASE 16 Units/L (15-37); BLOOD UREA NITROGEN 17 mg/dL (7-18); CALCIUM 8.6 mg/dL (8.5-10.1); CARBON DIOXIDE 23.8 mmol/L (21-32); CHLORIDE 105 mmol/L (98-107); COR NA(FOR HYPERGLY) 142 mmol/L (136-145); CREATINE KINASE 74 Units/L (39-308); CREATININE 1.15 mg/dL (0.70-1.30); GLUCOSE 121 mg/dL (65-99); POTASSIUM 3.9 mmol/L (3.5-5.1); SODIUM 141 mmol/L (136-145); TOTAL PROTEIN 7.5 g/dL (6.4-8.2); eGFR NON BLACK RACES > 60 (>60)
--- NOTE | 2022-09-05 12:36 | CT ---
HISTORYNUMBNESS, BLURRED VISION, ELEVATED blood PRESSURESTUDYCT HEAD WITHOUT CONTRASTCOMPARISONNo recent comparison studiesTECHNIQUEAxial CT of the head is performed from the base of the skull through the vertex WITHOUT contrast . Multiplaner reformats are generated from the original axial data.FINDINGSAge related cortical volume loss is observed. There is commensurate dilation of the lateral ventricles. Moderate chronic microangiopathic ischemic white matter changes of the supratentorial brain are observed. There is no evidence of an acute intracranial hemorrhage or extra-axial fluid collection. There is no mass effect, shift or cerebral edema. Atherosclerotic calcifications are associated with the cavernous ICA segments. There is no acute stage, large artery territorial infarct.Sinuses and mastoids are clear. The calvarium is intact.IMPRESSIONNo acute intracranial abnormalitiesAge related, moderate, generalized atrophy of the supratentorial brain with commensurate ventricular dilatationModerate degenerative white matter changes of the supratentorial brain associated with chronic small vessel ischemic degenerationRadiation dose reduction was achieved through individualized adjustment of kVP and/or mA, through adaptive statistical iterative reconstruction, and/or through automated tube current modulation.Electronically signed by: LUZ PRESSLEY (Sep 05, 2022 12:35:29)
[2022-09-05] MEDS ORDERED: OFIRMEV IV 1000 MG VIAL 1,000 MG/100 ML VIAL IV ONE ×2 (12:40→12:42)
[2022-09-05 15:45] VITALS: BMI 35.4
--- NOTE | 2022-09-05 18:51 | EKG ---
Test Reason : chest pain and facial numbness Blood Pressure : */* mmHG Vent. Rate : 64 BPM Atrial Rate : 64 BPM P-R Int : 188 ms QRS Dur : 104 ms QT Int : 436 ms P-R-T Axes : 52 20 15 degrees QTc Int : 449 ms Sinus rhythm with marked sinus arrhythmia with occasional premature ventricular complexes Otherwise normal ECG When compared with ECG of 05-SEP-2022 10:57, (Unconfirmed) premature ventricular complexes are now present Confirmed by Ren Monique (4) on 09/06/2022 9:42:11 AM Referred By: Confirmed By: Ren Monique
[2022-09-05 19:38] LABS: BILIRUBIN,URINE NEGATIVE (NEGATIVE); BLOOD/HEMOGLOBIN,URINE 1+ (NEGATIVE); GLUCOSE, URINE NEGATIVE (NEGATIVE); KETONES,URINE NEGATIVE (NEGATIVE); LEUKOCYTE ESTERASE ,URINE NEGATIVE (NEGATIVE); NITRITES,URINE NEGATIVE (NEGATIVE); PROTEIN,URINE 1+ (NEGATIVE); UROBILINOGEN,URINE NORMAL (NORMAL)
[2022-09-05 19:39] LABS: APPEARANCE,URINE CLEAR (CLEAR); COLOR,URINE YELLOW (YELLOW)
[2022-09-05 19:46] LABS: BACTERIA,URINE NEGATIVE /HPF (NEGATIVE); RBC,URINE 0-2 /HPF (0-3); SQUAMOUS EPITHELIAL CELL,UR RARE /HPF (NEGATIVE)
[2022-09-05] MEDS: GLUCOPHAGE PO SCH (20:45)
[2022-09-05] MEDS: LIPITOR TAB 80 MG PO SCH (20:45)
[2022-09-05] MEDS: ZESTRIL TAB 40 MG PO SCH (22:04)
--- NOTE | 2022-09-06 01:23 | EKG ---
Test Reason : chest pain and facial numbness Blood Pressure : */* mmHG Vent. Rate : 73 BPM Atrial Rate : 73 BPM P-R Int : 170 ms QRS Dur : 100 ms QT Int : 428 ms P-R-T Axes : 28 3 13 degrees QTc Int : 471 ms Normal sinus rhythm Normal ECG When compared with ECG of 05-SEP-2022 18:44, (Unconfirmed) premature ventricular complexes are no longer present Confirmed by Ren Monique ([id number]) on 09/06/2022 9:41:42 AM Referred By: Confirmed By: Ren Monique
[2022-09-06 06:16] LABS: BASOPHILS % (AUTO) 0.6 % (0.2-1.0); EOSINOPHILS # (AUTO) 0.3 x10^3/uL (0.0-0.2); EOSINOPHILS % (AUTO) 4.4 % (0.9-2.9); HEMOGLOBIN 11.8 g/dL (13.5-18.0); LYMPHOCYTES # (AUTO) 1.2 X10^3/uL (1.3-2.9); MEAN CORPUSCULAR HEMOGLOBIN 33.7 pg (27.0-34.0); MEAN CORPUSCULAR HGB CONC 34.7 g/dL (33.0-35.0); MEAN CORPUSCULAR VOLUME 97.1 fL (80.0-100.0); MEAN PLATELET VOLUME 9.5 fL (7.4-11.0); MONOCYTES # (AUTO) 0.5 x10^3/uL (0.3-0.8); MONOCYTES % (AUTO) 6.6 % (0.0-13.0); NEUTROPHILS # (AUTO) 4.9 x10^3/uL (2.2-4.8); NEUTROPHILS % (AUTO) 71.4 % (42.0-75.0); PLATELET COUNT 156 X10^3/uL (150.0-450.0); RED CELL DISTRIBUTION WIDTH 14.4 % (11.6-16.5); WHITE BLOOD COUNT 6.8 X10^3/uL (3.6-10.0)
[2022-09-06 06:31] LABS: ALANINE AMINOTRANSFERASE 23 Units/L (12-78); ALBUMIN 3.2 g/dL (3.4-5.0); ALKALINE PHOSPHATASE 55 Units/L (46-116); ASPARTATE AMINO TRANSFERASE 14 Units/L (15-37); BLOOD UREA NITROGEN 14 mg/dL (7-18); CALCIUM 8.2 mg/dL (8.5-10.1); CARBON DIOXIDE 25.2 mmol/L (21-32); CHLORIDE 106 mmol/L (98-107); COR CA(FOR HYPOALB) 8.8 mg/dL (8.5-10.1); CREATININE 1.08 mg/dL (0.70-1.30); GLUCOSE 88 mg/dL (65-99); MAGNESIUM 1.4 mg/dL (2.0-2.9); POTASSIUM 3.8 mmol/L (3.5-5.1); SODIUM 141 mmol/L (136-145); TOTAL PROTEIN 6.7 g/dL (6.4-8.2); eGFR NON BLACK RACES > 60 (>60)
[2022-09-06] MEDS ORDERED: POTASSIUM CHLORIDE LIQ 20 MEQ UDC PO PRN (06:51)
[2022-09-06] MEDS ORDERED: K-RIDER 10 MEQ/NS 100 ML 10 MEQ/100 ML BAG IV PRN (06:51)
[2022-09-06] MEDS ORDERED: K-DUR TAB 20 MEQ PO PRN (06:51)
[2022-09-06] MEDS ORDERED: KLOR-CON PO PRN (06:51)
[2022-09-06] MEDS ORDERED: POTASSIUM CHL 40 MEQ/NS 0.45% 500 ML IV PRN (06:51)
[2022-09-06] MEDS ORDERED: POTASSIUM CHL 60 MEQ/NS 0.45% 500 ML IV PRN (06:51)
[2022-09-06] MEDS ORDERED: MICRO K EXTEN CAP 10 MEQ PO PRN (06:51)
[2022-09-06] MEDS: PLAVIX PO SCH (09:32)
[2022-09-06] MEDS: NORVASC TAB 10 MG PO SCH (09:32)
[2022-09-06] MEDS: PriLOSEC PO SCH (09:32)
[2022-09-06] MEDS: ASPIRIN EC 81 MG PO SCH (09:32)
[2022-09-06] MEDS: GLUCOTROL XL 24-HR PO SCH (09:32)
[2022-09-06] MEDS: NEURONTIN CAP 300 MG PO SCH (09:32)
[2022-09-06] MEDS: GLUCOPHAGE PO SCH ×2 (09:32→21:25)
[2022-09-06] MEDS: ZESTRIL TAB 40 MG PO SCH ×2 (09:33→21:26)
[2022-09-06] MEDS: VICTOZA SC SCH (09:33)
[2022-09-06] MEDS: TOPROL XL PO SCH (09:33)
[2022-09-06] MEDS: MAGNESIUM SULFATE 1 GRAM/100 mL PREMIX 1 G/100 ML BAG IV PRN ×4 (09:34→23:08)
--- NOTE | 2022-09-06 11:59 | DR.H&P ---
H&P History & Physical for Day of: H&P Date: 09/06/22 Chief Complaint Chief Complaint: worsening shortness of breath, headache and facial numbness Allergies Allergies Allergy/AdvReac Type Severity Reaction Status Date / Time No Known Drug Allergies Allergy Verified 07/15/21 11:34 History of Present Illness History of Present Illness: Mr Renee is a 76y/o male with a PMH of CAD s/p PCI, valve disease, HTN, DM and HLD presented with elevated BP, headache, SOB and fa cial numbness. Patient states his BP at home was in the 200s and he was not feeling well. He reports having a valve abnormality that his community planning technician was monitoring. His last echo was over a year ago. He reports worsening exertional dyspnea recently. Denies chest pain or pressure. He is currently on 2L O2, does not use O2 at home. In the ER, CXR was normal, CT-head did not show acute stroke. His cardiac enzymes and EKG were negative for acute WI. He was admitted for further management. He still feels short of breath. He reports having increased swelling in both legs. Labs/imaging reviewed Labs- Mag 1.4 Plan: Will order echo for AM to assess LV function and valve abnormality. Wean O 2 as tolerated to keep sats>92%. Resume home medications. Replace K and Mag as per protocol. Monitor AM labs/imaging. Past Medical History Past Medical History: Diabetes, Dyslipidemia and Hypertension Additional Medical History: Previous Blood Transfusion Past Surgical History Surgical History: Angioplasty/Stents and Ortho Surgery Additional Surgical History: Two Heart Catheterization's, Right Total Knee, Right Shoulder Replacement, Fatty tissue removed from left side of neck Family History Family Medical History: Diabetes Mellitus, Cancer, [place], Coronary Artery Disease, Sudden Cardiac and Hypertension Social History Does patient currently use any type of tobacco product: No Have you used tobacco products in the last 12 months: No Type of Tobacco Use: None Does any household member use tobacco: No Alcohol Use: None Drug Use: None Medications Home Medications: No Known Drug Allergies Allergy (Verified 07/15/21 11:34) CONTINUE taking the following medications gabapentin 300 mg capsule 300 mg PO DAILY 09/05/22 [History] lisinopril 40 mg tablet 40 mg PO BID 09/05/22 [History] Labs Result Diagrams: 09/06/22 05:39 09/06/22 05:39 Labs: Laboratory WBC 6.8 X10^3/uL (3.6-10.0) 09/06/22 05:39 RBC 3.50 X10^6/uL (4.7-6.0) L 09/06/22 05:39 Hgb 11.8 g/dL (13.5-18.0) L 09/06/22 05:39 Hct 34.0 % (42.0-54.0) L 09/06/22 05:39 MCV 97.1 fL (80.0-100.0) 09/06/22 05:39 MCH 33.7 pg (27.0-34.0) 09/06/22 05:39 MCHC 34.7 g/dL (33.0-35.0) 09/06/22 05:39 RDW 14.4 % (11.6-16.5) 09/06/22 05:39 Plt Count 156 X10^3/uL (150.0-450.0) 09/06/22 05:39 MPV 9.5 fL (7.4-11.0) 09/06/22 05:39 Neut % (Auto) 71.4 % (42.0-75.0) 09/06/22 05:39 Lymph % (Auto) 17.0 % (21.0-51.0) L 09/06/22 05:39 [place] % (Auto) 6.6 % (0.0-13.0) 09/06/22 05:39 Eos % (Auto) 4.4 % (0.9-2.9) H 09/06/22 05:39 Baso % (Auto) 0.6 % (0.2-1.0) 09/06/22 05:39 Neut # (Auto) 4.9 x10^3/uL (2.2-4.8) H 09/06/22 05:39 Lymph # (Auto) 1.2 X10^3/uL (1.3-2.9) L 09/06/22 05:39 [place] # (Auto) 0.5 x10^3/uL (0.3-0.8) 09/06/22 05:39 Eos # (Auto) 0.3 x10^3/uL (0.0-0.2) H 09/06/22 05:39 Baso # (Auto) 0.0 X10^3/uL (0.0-0.1) 09/06/22 05:39 Absolute Nucleated RBC 0.0 /100WBC 09/06/22 05:39 PT 13.8 SECONDS (11.8-14.3) 09/05/22 11:23 INR Target Range - 09/05/22 11:23 INR 1.08 (0.8-1.3) 09/05/22 11:23 APTT 27.3 SECONDS (22.9-36.5) 09/05/22 11:23 PTT Comment - 09/05/22 11:23 Sodium 141 mmol/L (136-145) 09/06/22 05:39 Corrected Sodium TNP 09/06/22 05:39 Potassium 3.8 mmol/L (3.5-5.1) 09/06/22 05:39 Chloride 106 mmol/L (98-107) 09/06/22 05:39 Carbon Dioxide 25.2 mmol/L (21-32) 09/06/22 05:39 BUN 14 mg/dL (7-18) 09/06/22 05:39 Creatinine 1.08 mg/dL (0.70-1.30) 09/06/22 05:39 Est GFR (MDRD) Af Amer > 60 (>60) 09/06/22 05:39 Est GFR (MDRD) Non-Af > 60 (>60) 09/06/22 05:39 Glucose 88 mg/dL (65-99) 09/06/22 05:39 POC Glucose (mg/dL) 154 mg/dL (65-99) H 09/06/22 11:27 Calcium 8.2 mg/dL (8.5-10.1) L 09/06/22 05:39 Corrected Calcium 8.8 mg/dL (8.5-10.1) 09/06/22 05:39 Magnesium 1.4 mg/dL (2.0-2.9) L 09/06/22 05:39 Total Bilirubin 0.40 mg/dL (0.2-1.0) 09/06/22 05:39 AST 14 Units/L (15-37) L 09/06/22 05:39 ALT 23 Units/L (12-78) 09/06/22 05:39 Alkaline Phosphatase 55 Units/L (46-116) 09/06/22 05:39 Creatine Kinase 60 Units/L (39-308) 09/06/22 01:30 Troponin I High Sens 11.7 ng/L (4.0-60.0) 09/06/22 01:30 B-Natriuretic Peptide 160 pg/mL (0-79) H 09/05/22 11:23 Total Protein 6.7 g/dL (6.4-8.2) 09/06/22 05:39 Albumin 3.2 g/dL (3.4-5.0) L 09/06/22 05:39 Globulin 3.5 g/dL (2.5-4.5) 09/06/22 05:39 Albumin/Globulin Ratio 0.9 Ratio (1.1-2.1) L 09/06/22 05:39 Specimen Type Clean catch urine 09/05/22 19:22 Urine Color Yellow (YELLOW) 09/05/22 19:22 Urine Appearance Clear (CLEAR) 09/05/22 19:22 Urine pH 5.0 (5.0 - 8.0) 09/05/22 19:22 Ur Specific [place] 1.015 (1.000-1.030) 09/05/22 19:22 Urine Protein 1+ (NEGATIVE) 09/05/22 19:22 Urine Glucose (UA) Negative (NEGATIVE) 09/05/22 19:22 Urine Ketones Negative (NEGATIVE) 09/05/22 19:22 Urine Blood 1+ (NEGATIVE) 09/05/22 19:22 Urine Nitrite Negative (NEGATIVE) 09/05/22 19:22 Urine Bilirubin Negative (NEGATIVE) 09/05/22 19:22 Urine Urobilinogen Normal (NORMAL) 09/05/22 19:22 Ur Leukocyte Esterase Negative (NEGATIVE) 09/05/22 19:22 Urine RBC 0-2 /HPF (0-3) 09/05/22 19:22 Urine WBC None seen /HPF (0-5) 09/05/22 19:22 Ur Squamous Epith Cells Rare /HPF (NEGATIVE) 09/05/22 19:22 Urine Bacteria Negative /HPF (NEGATIVE) 09/05/22 19:22 Urine Mucus Rare /HPF (NEGATIVE) 09/05/22 19:22 Ur Culture Indicated? No/not indicated 09/05/22 19:22 Review of Systems Constitutional: No Symptoms Reported ENT: No Symptoms Reported Respiratory: Shortness of Breath and SOB with Excertion Cardiovascular: Edema Gastrointestinal: No Symptoms Reported Musculoskeletal: No Symptoms Reported Skin: No Symptoms Reported Neurological: Numbness Physical Exam Vital Signs: Temperature 97.8 F Pulse Rate [Right Brachial] 73 Pulse Rate 70 Respiratory Rate 20 Blood Pressure [Right Arm] 140/69 Blood Pressure [Left Arm] 137/72 Blood Pressure 159/81 O2 Sat by Pulse Oximetry 95 Oriented: Normal Eyes: Normal Throat: Normal Respiratory: Clear Throughout Cardiovascular: Normal Auscultation: Bowel Sounds: Normal Palpation: Normal Tenderness: Normal Skin: Normal Musculoskeletal: Normal Psychiatric: Normal Mood Description: Calm Affect: Normal Speech Pattern: Clear and Appropriate Assessment/Plan (1) Chest pain, rule out acute myocardial infarction: Status: Acute (2) Acute dyspnea: Status: Acute (3) Headache: Qualifiers: Headache chronicity pattern: acute headache Headache type: unspecified Intractability: intractable Qualified Code(s): R51.9 - Headache, unspecified Status: Acute (4) COPD (chronic obstructive pulmonary disease): Qualifiers: COPD type: unspecified COPD Qualified Code(s): J44.9 - Chronic obstructive pulmonary disease, unspecified Status: Chronic (5) Stented coronary artery: Status: Chronic (6) Hyperlipidemia: Qualifiers: Hyperlipidemia type: mixed hyperlipidemia Status: Chronic (7) Diabetes mellitus, type 2: Qualifiers: Diabetes mellitus complication status: without complication Diabetes mellitus intermission coordinator insulin use: with intermission coordinator use Qualified Code(s): E11.9 - Type 2 diabetes mellitus without complications; Z79.4 - terminal superintendent (current) use of insulin Status: Chronic (8) Hypertension: Qualifiers: Hypertension type: essential hypertension Qualified Code(s): I10 - Essential (primary) hypertension Status: Chronic Review H&P Reviewed: Yes Patient was examined?: Yes
[2022-09-06] MEDS: LIPITOR TAB 80 MG PO SCH (21:26)
[2022-09-06] MEDS ORDERED: NS 250 ML IV 250 ML IV ONE (22:26)
--- NOTE | 2022-09-07 06:09 | RAD ---
HISTORYShortness of breathSTUDYChest AP [id number]/29/2023FINDINGSHear t size is normal. Stephany are normal. Lung barrientos are clear. No pleural effusions are identified. Bony thorax is unremarkable with the exception of a right shoulder arthroplasty.IMPRESSIONNo significant abnormality identifiedElectronically signed by: MURPHY CERRATO (September 07, 2022 06:08:34)
[2022-09-07 06:27] LABS: BASOPHILS % (AUTO) 0.6 % (0.2-1.0); EOSINOPHILS # (AUTO) 0.3 x10^3/uL (0.0-0.2); EOSINOPHILS % (AUTO) 5.1 % (0.9-2.9); HEMATOCRIT 33.9 % (42.0-54.0); HEMOGLOBIN 11.6 g/dL (13.5-18.0); LYMPHOCYTES # (AUTO) 1.1 X10^3/uL (1.3-2.9); LYMPHOCYTES % (AUTO) 16.9 % (21.0-51.0); MEAN CORPUSCULAR HEMOGLOBIN 33.8 pg (27.0-34.0); MEAN CORPUSCULAR HGB CONC 34.1 g/dL (33.0-35.0); MEAN CORPUSCULAR VOLUME 98.9 fL (80.0-100.0); MEAN PLATELET VOLUME 10.3 fL (7.4-11.0); MONOCYTES # (AUTO) 0.5 x10^3/uL (0.3-0.8); MONOCYTES % (AUTO) 7.2 % (0.0-13.0); NEUTROPHILS # (AUTO) 4.6 x10^3/uL (2.2-4.8); NEUTROPHILS % (AUTO) 70.2 % (42.0-75.0); PLATELET COUNT 150 X10^3/uL (150.0-450.0); RED BLOOD COUNT 3.43 X10^6/uL (4.7-6.0); RED CELL DISTRIBUTION WIDTH 14.5 % (11.6-16.5); WHITE BLOOD COUNT 6.5 X10^3/uL (3.6-10.0)
[2022-09-07 07:01] LABS: ALANINE AMINOTRANSFERASE 20 Units/L (12-78); ALBUMIN 3.1 g/dL (3.4-5.0); ALKALINE PHOSPHATASE 60 Units/L (46-116); ASPARTATE AMINO TRANSFERASE 17 Units/L (15-37); BLOOD UREA NITROGEN 13 mg/dL (7-18); CALCIUM 8.5 mg/dL (8.5-10.1); CHLORIDE 106 mmol/L (98-107); COR CA(FOR HYPOALB) 9.2 mg/dL (8.5-10.1); CREATININE 1.17 mg/dL (0.70-1.30); GLUCOSE 109 mg/dL (65-99); SODIUM 139 mmol/L (136-145); TOTAL PROTEIN 6.8 g/dL (6.4-8.2); eGFR NON BLACK RACES > 60 (>60)
[2022-09-07] MEDS: NEURONTIN CAP 300 MG PO SCH (08:57)
[2022-09-07] MEDS: ZESTRIL TAB 40 MG PO SCH ×2 (08:57→20:50)
[2022-09-07] MEDS: ASPIRIN EC 81 MG PO SCH (08:57)
[2022-09-07] MEDS: TOPROL XL PO SCH (08:58)
[2022-09-07] MEDS: NORVASC TAB 10 MG PO SCH (08:58)
[2022-09-07] MEDS: GLUCOTROL XL 24-HR PO SCH (08:58)
[2022-09-07] MEDS: PriLOSEC PO SCH (08:58)
[2022-09-07] MEDS: PLAVIX PO SCH (08:58)
[2022-09-07] MEDS: GLUCOPHAGE PO SCH ×2 (08:58→20:48)
[2022-09-07] MEDS ORDERED: LOVENOX INJ 40 MG SYR SC SCH (09:00)
[2022-09-07] MEDS: VICTOZA SC SCH (09:40)
[2022-09-07] MEDS ORDERED: FIORICET TAB PO PRN (10:02)
[2022-09-07] MEDS: XARELTO PO SCH ×2 (12:20→20:48)
[2022-09-07] MEDS ORDERED: TYLENOL 325 MG TAB PO PRN (20:28)
[2022-09-07] MEDS: LIPITOR TAB 80 MG PO SCH (20:50)
[2022-09-08 06:27] LABS: BASOPHILS % (AUTO) 0.7 % (0.2-1.0); EOSINOPHILS # (AUTO) 0.4 x10^3/uL (0.0-0.2); EOSINOPHILS % (AUTO) 6.7 % (0.9-2.9); HEMATOCRIT 33.8 % (42.0-54.0); HEMOGLOBIN 11.8 g/dL (13.5-18.0); LYMPHOCYTES # (AUTO) 1.1 X10^3/uL (1.3-2.9); LYMPHOCYTES % (AUTO) 21.5 % (21.0-51.0); MEAN CORPUSCULAR HEMOGLOBIN 33.9 pg (27.0-34.0); MEAN CORPUSCULAR HGB CONC 34.8 g/dL (33.0-35.0); MEAN CORPUSCULAR VOLUME 97.3 fL (80.0-100.0); MEAN PLATELET VOLUME 9.4 fL (7.4-11.0); MONOCYTES # (AUTO) 0.4 x10^3/uL (0.3-0.8); MONOCYTES % (AUTO) 7.7 % (0.0-13.0); NEUTROPHILS # (AUTO) 3.4 x10^3/uL (2.2-4.8); NEUTROPHILS % (AUTO) 63.4 % (42.0-75.0); PLATELET COUNT 152 X10^3/uL (150.0-450.0); RED BLOOD COUNT 3.47 X10^6/uL (4.7-6.0); RED CELL DISTRIBUTION WIDTH 14.1 % (11.6-16.5); WHITE BLOOD COUNT 5.3 X10^3/uL (3.6-10.0)
[2022-09-08 06:45] LABS: ALANINE AMINOTRANSFERASE 21 Units/L (12-78); ALKALINE PHOSPHATASE 59 Units/L (46-116); ASPARTATE AMINO TRANSFERASE 15 Units/L (15-37); BLOOD UREA NITROGEN 13 mg/dL (7-18); CALCIUM 8.2 mg/dL (8.5-10.1); CARBON DIOXIDE 24.1 mmol/L (21-32); CHLORIDE 106 mmol/L (98-107); CREATININE 1.16 mg/dL (0.70-1.30); GLUCOSE 103 mg/dL (65-99); SODIUM 140 mmol/L (136-145); TOTAL PROTEIN 6.7 g/dL (6.4-8.2); eGFR NON BLACK RACES > 60 (>60)
[2022-09-08] MEDS: XARELTO PO SCH (09:35)
[2022-09-08] MEDS: GLUCOPHAGE PO SCH (09:36)
[2022-09-08] MEDS: NEURONTIN CAP 300 MG PO SCH (09:36)
[2022-09-08] MEDS: GLUCOTROL XL 24-HR PO SCH (09:36)
[2022-09-08] MEDS: ZESTRIL TAB 40 MG PO SCH (09:36)
[2022-09-08] MEDS: PriLOSEC PO SCH (09:36)
[2022-09-08] MEDS: PLAVIX PO SCH (09:37)
[2022-09-08] MEDS: TOPROL XL PO SCH (09:37)
[2022-09-08] MEDS: ASPIRIN EC 81 MG PO SCH (09:37)
[2022-09-08] MEDS: NORVASC TAB 10 MG PO SCH (09:37)
[2022-09-08] MEDS: VICTOZA SC SCH (09:38)
[2022-09-08 10:53] VITALS: BP 141/72
== END 2022-09-08 12:12 | disposition home or self-care (01) ==
LOC: MED/SURG 10:39 → ER 10:39 → MED/SURG 15:07
PROVIDERS: ADMIT Internal Medicine; ATTEND Internal Medicine
DX: R20.0 Anesthesia of skin; Z79.01 Long term (current) use of anticoagulants; Z95.5 Presence of coronary angioplasty implant and graft; R06.02 Shortness of breath; E11.65 Type 2 diabetes mellitus with hyperglycemia; J44.9 Chronic obstructive pulmonary disease, unspecified; R29.810 Facial weakness; R07.89 Other chest pain; Z79.4 Long term (current) use of insulin; R60.0 Localized edema; R51.9 Headache, unspecified; E78.2 Mixed hyperlipidemia; I10 Essential (primary) hypertension